=== PATIENT | female | born 1985 | race Caucasian/White ===

== ENCOUNTER 2022-09-07 19:41 | Emergency (ER) | payer OTHER, SELFPAY ==
--- NOTE | ~2022-09-07 | XR_ITS ---
EXAMINATION: XR SHOULDER, RIGHT CLINICAL INFORMATION: Pain, limited range of motion COMPARISON: None available. TECHNIQUE: Three views of the right shoulder. FINDINGS: The bones and soft tissues are normal. No fracture. Glenohumeral and acromioclavicular alignment is anatomic with normal joint space. No abnormal soft tissue calcifications. XR/XR shoulder RT min 2V IMPRESSION: Normal right shoulder.
--- NOTE | ~2022-09-07 | XR_ITS ---
EXAMINATION: XR ELBOW, RIGHT CLINICAL INFORMATION: Pain, limited range of motion COMPARISON: None available. TECHNIQUE: AP, lateral, and oblique views of the right elbow. FINDINGS: The bones and soft tissues are normal. No fracture or joint effusion. Alignment is anatomic. Joint spaces are maintained. XR/XR elbow RT min 3V IMPRESSION: Normal right elbow.
[2022-09-07 19:48] VITALS: BP 143/87; PULSE 101; RESP 18; TEMP 36.6; O2SAT 97; BMI 30.3
--- NOTE | 2022-09-07 19:48 | ED.EXTPRO ---
HPI - Extremity Problem General Chief complaint: Extremity Injury, Upper Stated complaint: right arm numb cant lift Time Seen by Provider: 09/07/22 20:09 Related Data Previous Rx's Medication Instructions Recorded cyclobenzaprine 10 mg tablet 10 mg PO TID PRN muscle spasm #20 09/07/22 tabs ibuprofen 800 mg tablet 800 mg PO TID #30 tabs 09/07/22 Allergies Allergy/AdvReac Type Severity Reaction Status Date / Time amoxicillin [AMOXICILLIN] Allergy Unknown RASH Unverified 01/09/20 16:24 diphenhydramine Allergy Unknown HIVES Unverified 01/09/20 16:24 [From BENADRYL] doxycycline [DOXYCYCLINE] Allergy Unknown SHORTNESS Unverified 01/09/20 16:24 OF BREATH PMFSH Social History Social History Advance Directives: No Advance Directives Information Provided: No Physical Exam Vital Signs: Vital Signs: Last Vital Signs Temp 97.8 F 09/07/22 19:48 Pulse 101 H 09/07/22 19:48 Resp 18 09/07/22 19:48 BP 143/87 H 09/07/22 19:48 Pulse Ox 97 09/07/22 19:48 O2 Del Method Room Air 09/07/22 19:48 BMI result Body Mass Index 30.3 Course Course Course Narrative: RME - 36 yo right hand dominant female with history of anxiety and depression presents to the ER for evaluation of 3-4 days of nontraumatic constant right upper extremity pulsating, throbbing pain that starts in the shoulder and radiates to the right elbow along with limited ROM. Sometimes has numbness/tingling down into the right hand. Arm held in passive flexion and adduction with limited passive ROM. Plan: x-rays of shoulder and elbow Reevaluation(s) Reevaluation #1: see Dr. Hernandez's note for full assessment and plan Medications Administered Discontinued Medications Generic Name Dose Route Start Last Admin Trade Name Freq PRN Reason Stop Dose Admin Cyclobenzaprine HCl 10 mg 09/07/22 20:18 09/07/22 20:27 Cyclobenzaprine Hcl 10 Mg Tablet PO 09/07/22 20:19 10 mg ONCE ONE Administration Ketorolac Tromethamine 30 mg 09/07/22 20:18 09/07/22 20:27 Ketorolac Tromethamine 30 Mg/Ml Vial IM 09/07/22 20:19 30 mg ONCE ONE Administration Discharge Plan Discharge Clinical Impression: Biceps tendinitis Patient Disposition: Home, Self-Care Instructions: Tendinitis (ED) Additional Instructions: Follow-up at [facility] in [place]. [address] [facility]. Call [phone] arrange an appointment. In the meantime take ibuprofen for pain and inflammation. Flexeril as a muscle relaxant. Keep the sling on for comfort although he you may take it off to do range of motion as tolerated. Prescriptions: New ibuprofen 800 mg tablet 800 mg PO TID Qty: 30 0RF cyclobenzaprine 10 mg tablet 10 mg PO TID PRN (Reason: muscle spasm) Qty: 20 0RF Interventions: ED Discharge Assessment Last Done: 09/07/22 20:32 Discharge Date/Time: 09/07/22 20:39
--- NOTE | 2022-09-07 20:19 | ED_ITS ---
HPI - Extremity Problem General Chief complaint: Extremity Injury, Upper Stated complaint: right arm numb cant lift Time Seen by Provider: 09/07/22 20:09 Source: patient History of Present Illness HPI Narrative: Patient with 3-4 days of atraumatic right shoulder pain. It radiates down into her elbow. No injury. No overuse. No prior history of similar issues. No significant neck pain. No left-sided symptoms. No numbness or tingling. No fevers or chills. Related Data Previous Rx's Medication Instructions Recorded cyclobenzaprine 10 mg tablet 10 mg PO TID PRN muscle spasm #20 09/07/22 tabs ibuprofen 800 mg tablet 800 mg PO TID #30 tabs 09/07/22 Allergies Allergy/AdvReac Type Severity Reaction Status Date / Time amoxicillin [AMOXICILLIN] Allergy Unknown RASH Unverified 01/09/20 16:24 diphenhydramine Allergy Unknown HIVES Unverified 01/09/20 16:24 [From BENADRYL] doxycycline [DOXYCYCLINE] Allergy Unknown SHORTNESS Unverified 01/09/20 16:24 OF BREATH Review of Systems Constitutional: Comments: No fevers or chills Musculoskeletal: Comments: No neck pain Integumentary/Breasts: Comments: No rash Neurologic: Comments: No numbness PMFSH Social History Social History Advance Directives: No Advance Directives Information Provided: No Physical Exam Vital Signs: Vital Signs: Last Vital Signs Temp 97.8 F 09/07/22 19:48 Pulse 101 H 09/07/22 19:48 Resp 18 09/07/22 19:48 BP 143/87 H 09/07/22 19:48 Pulse Ox 97 09/07/22 19:48 O2 Del Method Room Air 09/07/22 19:48 BMI result Body Mass Index 30.3 Const: Other: Awake and alert. No acute distress Neck: Other: No midline C-spine tenderness. No significant right paraspinous muscle tenderness or spasm Resp: Other: No respiratory distress Skin: Other: No rash over affected area Neuro: Other: Distal sensation is intact Extrem: Other: Right shoulder with tenderness maximum over insertion of biceps tenderness. No crepitus or deformity noted. Range of motion very limited secondary to pain. No increased warmth or erythema. Also tenderness at the distal insertion of the biceps tendon. She has full range of motion of the finger, hand, wrist. Full supination pronation without difficulty. Pain is reproduced on flexion at the elbow or attempted flexion or extension or abduct valdivia at the shoulder. Radial pulse is normal and capillary refill is immediate Medical Decision Making Medical Decision Making MDM Narrative: Patient with maximum tenderness over biceps tendon likely biceps tendinitis. Rule out calcific tendinosis or occult trauma. X-rays on my interpretation show no obvious abnormalities. Will treat with Toradol IM, Flexeril p.o., sling. Follow up with physiatry. Discharge Plan Discharge Clinical Impression: Biceps tendinitis Patient Disposition: Home, Self-Care Instructions: Tendinitis (ED) Additional Instructions: Follow-up at [facility] in [place]. [address] [facility]. Call [phone] arrange an appointment. In the meantime take ibuprofen for pain and inflammation. Flexeril as a muscle relaxant. Keep the sling on for comfort although he you may take it off to do range of motion as tolerated. Prescriptions: New ibuprofen 800 mg tablet 800 mg PO TID Qty: 30 0RF cyclobenzaprine 10 mg tablet 10 mg PO TID PRN (Reason: muscle spasm) Qty: 20 0RF
[2022-09-07] MEDS: Cyclobenzaprine HCl 10 MG TABLET PO (20:27)
[2022-09-07] MEDS: Ketorolac Tromethamine 30 MG/ML VIAL IM (20:27)
== END 2022-09-07 20:39 | disposition home or self-care (01) ==
PROVIDERS: Emergency Provider Emergency Medicine; PCP Physician Assistant Medical
DX: M75.21 Bicipital tendinitis, right shoulder (principal); M79.601 Pain in right arm; Z79.899 Other long term (current) drug therapy
CPT/HCPCS: 73030; 73080; 96372; 99283; 99284; J1885

== ENCOUNTER 2022-09-09 15:27 | Emergency (ER) | payer OTHER, SELFPAY ==
[2022-09-09 15:41] VITALS: BP 118/71; PULSE 87; RESP 18; TEMP 36.6; O2SAT 98; BMI 29.3
--- NOTE | 2022-09-09 15:45 | ED.GENADULT ---
HPI - General Adult General Chief complaint: Extremity Problem Stated complaint: shoulder is getting worse, here the other night Time Seen by Provider: 09/09/22 15:53 History of Present Illness HPI narrative: 36-year-old female with no significant past medical history presents emergency department for re-evaluation of right shoulder pain. She was seen on 09/07/2022 and diagnosed with biceps tendinitis. She was discharged on ibuprofen, Flexeril, and provided with a sling. She was referred to physiatry for further evaluation. She reports pain has not improved despite medications. She states she called her primary care provider to make an appointment and has not spoken to anyone since. She made an appointment to be assessed by [facility] in September. She reports she has been wearing the sling as she was told and taking her arm out for gentle [id number] exercises. She denies any paresthesias, increasing weakness, fevers, chills. Pertinent positives and negatives discussed HPI. Related Data Previous Rx's Medication Instructions Recorded cyclobenzaprine 10 mg tablet 10 mg PO TID PRN muscle spasm #20 09/07/22 tabs ibuprofen 800 mg tablet 800 mg PO TID #30 tabs 09/07/22 Allergies Allergy/AdvReac Type Severity Reaction Status Date / Time amoxicillin [AMOXICILLIN] Allergy Unknown RASH Unverified 01/09/20 16:24 diphenhydramine Allergy Unknown HIVES Unverified 01/09/20 16:24 [From BENADRYL] doxycycline [DOXYCYCLINE] Allergy Unknown SHORTNESS Unverified 01/09/20 16:24 OF BREATH Review of Systems Review of Systems: Yes all other systems are reviewed and are negative [facility] Past Medical History Attestation statement: The following information was validated with the patient. Source: old records reviewed Social History Social History Advance Directives: No Advance Directives Information Provided: No Physical Exam ED Vital Signs: Vital Signs - 24 hr 09/09/22 15:41 Temperature 98 F Pulse Rate 87 Respiratory Rate 18 Blood Pressure 118/71 Pulse Oximetry 98 Oxygen Delivery Method Room Air BMI result Body Mass Index 29.3 Nursing notes and vital signs reviewed. GENERAL APPEARANCE: A&0 x 4, generally well appearing, no acute distress HENMT: Normal to inspection, atraumatic, face symmetrical. Normal external ears, nose, and oropharynx clear. NECK: Supple without lymphadenopathy. No stiffness or restricted ROM. HEART: Normal rate and regular rhythm, normal S1/S2, no M/R/G LUNGS: LS CTA, moving air well. Able to speak in complete sentences. No crackles, wheezes, or rhonchi auscultated EXTREMITIES: Difficulty moving RUE due to pain. No cyanosis, clubbing, or edema. Normal capillary refill. NEUROLOGICAL: Alert and oriented. CN not formally tested but appearing grossly intact. Observed to ambulate with normal gait. Cognition normal SKIN: Warm and dry without any lesions, rash, or visible sores PSYCH: Cooperative, normal affect, normal thought process Course Course Course Narrative: RME performed by Miley Torres PA-C. Patient is a 36 year old assigned female at presenting to the emergency department with right shoulder pain. Patient placed back in the waiting room pending room availability and results. Medical Decision Making Medical Decision Making [facility] Narrative: 1615: Old records reviewed for previous imaging, lab studies, ECGs, or notes. Patient was assessed the emergency department. No acute distress or toxicity noted. Patient symptoms consistent with acute right shoulder strain and biceps tendinitis. Patient educated to continue use of prescribed medications and use of sling. Recommended that patient use Tylenol in addition to pain regimen. We discussed follow-up with orthopedics and primary care his she may need physical therapy. Patient is safe for discharge at this time with plan for [id number] Tylenol in addition to prescribed medications for discomfort with dosing as per packaging. HPI, PE, diagnostics, and plan discussed with patient and family with no unanswered questions at this time. Strict return precautions given to return to the emergency department with new, worsening, or concerning emergent symptoms. Recommended to follow-up with there primary care provider in 24-48 hours for further treatment and management. Differential Diagnosis see above Discharge Plan Discharge Clinical Impression: Strain of right shoulder Patient Disposition: Home, Self-Care Instructions: Acetaminophen (By mouth), Muscle Strain (ED), How to Use a Sling (ED) Additional Instructions: Your seen in the emergency department for concerns of continued right shoulder pain. Is recommended they continue the prescribed medication in addition to emri-xae-[id number] Tylenol. You are safe for discharge at this time with plan for management of fever or discomfort with [id number] Tylenol and/or NSAID such as ibuprofen or naproxen with dosing as per packaging. Please return to the emergency department with new, worsening, or concerning emergent symptoms. Recommended to follow-up with your primary care provider in 24-48 hours for further treatment and management. Thank you for choosing [facility] [employer]. Prescriptions: No Action ibuprofen 800 mg tablet 800 mg PO TID Qty: 30 0RF cyclobenzaprine 10 mg tablet 10 mg PO TID PRN (Reason: muscle spasm) Qty: 20 0RF Referrals: [facility] [Provider Group] ([facility] Urgent Care walk-in hours are Monday through Monday 8:30 a.m. ? 3:00 p.m. (closed from 12:00p.m.-1:00p.m.) ) Verónica Grigsby PA [Primary Care Provider] - Interventions: ED Discharge Assessment Last Done: 09/09/22 16:27 Discharge Date/Time: 09/09/22 16:28 Print Language: Romanian
== END 2022-09-09 16:28 | disposition home or self-care (01) ==
PROVIDERS: Emergency Provider Emergency Medicine Emergency Medical Services; PCP Physician Assistant Medical
DX: S46.911A Strain of unspecified muscle, fascia and tendon at shoulder and upper arm level, right arm, initial encounter (principal); X58.XXXA Exposure to other specified factors, initial encounter; Y93.9 Activity, unspecified; Y92.9 Unspecified place or not applicable; Y99.9 Unspecified external cause status
CPT/HCPCS: 99282

== ENCOUNTER 2024-01-06 19:07 | Emergency (ER) | payer MEDICARE, SELFPAY ==
--- NOTE | ~2024-01-06 | US_ITS ---
EXAMINATION: US PELVIS CLINICAL INFORMATION: Reason for Exam L pelvic pain, vag bleeding, hx partial hysterecto COMPARISON: None available. TECHNIQUE: Ultrasound of the pelvis is performed using both transabdominal and transvaginal transducers along with Doppler. Transvaginal imaging is performed due to inadequate visualization transabdominally. FINDINGS: Patient appears to be status post hysterectomy. Vaginal cuff appears prominent. The right ovary measures 2.8 x 2.5 x 1.8 cm and appears unremarkable. The left ovary measures 2.7 x 2.1 x 2.1 cm and also appears unremarkable. Per technologist report, assessment of left ovarian flow was limited due to proximity of the adjacent iliac vessels with pulsatile flow, though on several images there are suspected flow waveforms in the left ovary. Arterial and venous waveforms are identified in the right ovary. No free fluid is seen. US/US pelvic ovarian doppler IMPRESSION: 1. Status post hysterectomy. Vaginal cuff appears prominent, which could reflect blood products given the history of vaginal bleeding. If symptoms persist, further workup with pre and postcontrast MRI could be performed to evaluate for possible mass. 2. Per technologist note, limited assessment for left ovarian blood flow. Ovarian torsion is considered less likely given normal ovarian size. Electronically signed by: Jame Esteves MD 01/06/2024 11:40 PM EDT
--- NOTE | ~2024-01-06 | US_ITS ---
EXAMINATION: US PELVIS CLINICAL INFORMATION: Reason for Exam L pelvic pain, vag bleeding, hx partial hysterecto COMPARISON: None available. TECHNIQUE: Ultrasound of the pelvis is performed using both transabdominal and transvaginal transducers along with Doppler. Transvaginal imaging is performed due to inadequate visualization transabdominally. FINDINGS: Patient appears to be status post hysterectomy. Vaginal cuff appears prominent. The right ovary measures 2.8 x 2.5 x 1.8 cm and appears unremarkable. The left ovary measures 2.7 x 2.1 x 2.1 cm and also appears unremarkable. Per technologist report, assessment of left ovarian flow was limited due to proximity of the adjacent iliac vessels with pulsatile flow, though on several images there are suspected flow waveforms in the left ovary. Arterial and venous waveforms are identified in the right ovary. No free fluid is seen. US/US pelvic and transvaginal IMPRESSION: 1. Status post hysterectomy. Vaginal cuff appears prominent, which could reflect blood products given the history of vaginal bleeding. If symptoms persist, further workup with pre and postcontrast MRI could be performed to evaluate for possible mass. 2. Per technologist note, limited assessment for left ovarian blood flow. Ovarian torsion is considered less likely given normal ovarian size. Electronically signed by: Jame Esteves MD 01/06/2024 11:40 PM EDT
--- NOTE | ~2024-01-06 | CT_ITS ---
EXAMINATION: CT ABDOMEN AND PELVIS WITH CONTRAST CLINICAL INFORMATION: Lower abdominal pain COMPARISON: Same day pelvic ultrasound TECHNIQUE: Multidetector volumetric images were obtained from the superior aspect of the liver through the pubic symphysis following administration 85 mL of Omnipaque 350 intravenous contrast. Sagittal and coronal reformatted images were obtained on the technologist's workstation. Oral contrast: No This CT examination was performed using dose optimization techniques as appropriate, variously including the following: *Automated exposure control *Adjustment of mA and/or kV according to patient size (this includes techniques or standardized protocols for targeted exams where dose is matched to indication/reason for exam; i.e. extremities or head) *Use of iterative reconstruction technique DLP: 498 mGy-cm FINDINGS: LUNG BASES: The visualized lung bases are unremarkable. LIVER, GALLBLADDER, AND BILIARY TREE: The liver is normal in size, shape, and attenuation. No focal hepatic lesion or biliary ductal dilatation is present. The gallbladder is unremarkable with no evidence of radiopaque gallstones, gallbladder wall thickening, or obvious pericholecystic inflammatory changes. PANCREAS: Unremarkable. SPLEEN: Unremarkable. ADRENAL GLANDS: Unremarkable. KIDNEYS AND URETERS: Bilateral nephrograms are symmetric. No hydronephrosis or obstructing calculus identified. BLADDER: Mildly distended and grossly unremarkable. GASTROINTESTINAL TRACT: No evidence of bowel obstruction or significant wall thickening. The appendix is unremarkable. No free air or significant free fluid identified. ABDOMINAL WALL: No significant hernia is appreciated. LYMPH NODES: Normal. VASCULAR: Unremarkable. PELVIC VISCERA: Status post hysterectomy. Somewhat prominent appearance of the vaginal cuff as noted on pelvic ultrasound from the same day. OSSEOUS STRUCTURES: Unremarkable. CT/CT abdomen pelvis w IV con IMPRESSION: Status post hysterectomy with a somewhat prominent appearance of the vaginal cuff as noted/discussed on pelvic ultrasound from the same day. Otherwise, no additional acute findings identified. Electronically signed by: Jame Esteves MD 01/07/2024 01:40 AM EDT
--- NOTE | 2024-01-06 19:33 | ED.GENADULT ---
HPI - General Adult General Chief complaint: Vaginal Bleeding Stated complaint: vaginal bleeding, pelvic pain Time Seen by Provider: 01/06/24 23:23 Source: patient Mode of arrival: ambulatory Limitations: no limitations History of Present Illness ED Provider: Yoon RODRIGUEZ HPI narrative: 38 year old female history of partial hysterectomy that was complicated and required bladder mesh presents with left lower quadrant abdominal pain, vaginal spotting, left flank pain ongoing for the past 5 days she reports subjective fevers. Reports pain is sharp in nature. Denies CP,SOB, nausea, vomiting, changes in urinary habits anad bowel habits. Reports had a normal US a few weeks ago of her ovaries. Related Data Previous Rx's ?Medication ?Instructions ?Recorded cyclobenzaprine 10 mg tablet 10 mg PO TID PRN muscle spasm #20 09/07/22 tabs ibuprofen 800 mg tablet 800 mg PO TID #30 tabs 09/07/22 oxycodone 5 mg tablet 5 mg PO Q6H PRN pain #20 tabs 01/07/24 Allergies Allergy/AdvReac Type Severity Reaction Status Date / Time amoxicillin [AMOXICILLIN] Allergy Unknown RASH Verified 01/06/24 19:38 diphenhydramine Allergy Unknown HIVES Verified 01/06/24 19:38 [From BENADRYL] doxycycline [DOXYCYCLINE] Allergy Unknown SHORTNESS Verified 01/06/24 19:38 OF BREATH Review of Systems Review of Systems: Yes all other systems are reviewed and are negative PMFSH Past Medical History Attestation statement: The following information was validated with the patient. Source: old records reviewed and nursing notes reviewed Social History Social History Smoked in Last 30 Days: Yes Use of substances other than those prescribed or required for medical reasons: No Advance Directives: No Advance Directives Information Provided: No Do you have a plan to hurt others: No Plan Patient : No Physical Exam ED Vital Signs: Vital Signs - 24 hr 01/06/24 19:34 01/06/24 23:05 01/06/24 23:16 Temperature 98.0 F 98.0 F Pulse Rate 78 84 84 Respiratory Rate 16 16 16 Blood Pressure 124/94 H 110/68 110/68 Pulse Oximetry 97 100 100 Oxygen Delivery Method Room Air Room Air Room Air 01/07/24 00:00 01/07/24 02:00 Temperature 97.9 F 97.9 F Pulse Rate 91 79 Respiratory Rate 16 18 Blood Pressure 107/61 104/68 Pulse Oximetry 98 98 Oxygen Delivery Method Room Air Room Air BMI result Body Mass Index 23.0 vss Appearance: Alert.? Oriented X3.? No acute distress.? Head: Normocephalic, atraumatic, no step-offs or deformities Eyes: Pupils equal, round and reactive to light.? CVS: Normal heart rate and rhythm.? Pulses normal.? Respiratory: No respiratory distress.? Breath sounds normal.? Abdomen: Soft and diffuse abd pain.? Skin: Skin warm and dry.? Normal skin color.? Normal skin turgor.? Extremities: No lower extremity edema.? No calf ttp. 5/5 strength to bilateral upper and lower extremities Neuro: Oriented X 3.? No motor deficit.? No sensory deficit. CN 2-12 intact Course Course Course Narrative: This is an RME performed by Lela Nino [employer]: Additional HPI, ROS, PE not included below will be deferred to primary provider. Patient is a 38-year-old female who presents to the emergency department Reports 5 days with pain to the left lower pelvic lesion with associated vaginal bleeding, pain radiates to the left lower back. Reports a history of partial hysterectomy 10 or 11 years ago due to heavy menses and possible diagnosis of endometriosis does not recall, has had intermittent issues with vaginal bleeding since then, expresses concern for previously eroded bladder mesh. Denies genitourinary symptoms at this time. Denies concern for sx. Reevaluation(s) Reevaluation #1: CBC stable x2 . Chemistry unremarkable. Beta hCG 9 unlikely . Lipase 29. Urine negative. Ultrasound pelvic and transvaginal status post hysterectomy, vaginal cuff appears prominent which could reflect blood products given an vaginal bleeding. Limit assessment of left ovarian blood flow ovarian torsion less likely given normal ovaries. When I went in the room patient was sleeping, did not appear to be in acute distress. Again less likely ovarian torsion. CT abdomen pelvis pending. Will sign this case out to Dr. Strauss Time: 01:35 Medications Administered Discontinued Medications Generic Name Dose Route Start Last Admin Trade Name Freq PRN Reason Stop Dose Admin Iohexol 85 ml 01/06/24 23:47 01/06/24 23:48 Iohexol 350 Mg/Ml 100 Ml Infus..Btl IV 01/06/24 23:48 85 ml ONCE ONE Administration Ketorolac Tromethamine 30 mg 01/07/24 01:48 01/07/24 01:53 Ketorolac Tromethamine 30 Mg/Ml Vial IVPUSH 01/07/24 01:49 30 mg ONCE ONE Administration Medical Decision Making Medical Decision Making [facility] Narrative: 0125 38 yo f presents w/ vaginal spotting, abd discomfort LLQ to L flank. PE LLQ tenderness and L flank discomfort History and physical exam concerning for possible diverticulitis versus UTI versus cystitis versus kidney stone. Unlikely acute abdomen, obstruction, pancreatitis, cholecystitis, appendicitis. Will rule out metabolic derangement Plan- labs, UA, Imaging Patient is status post partial hysterectomy about 8 years old comes here for ongoing pain in the pelvic area for last 2 months been followed by Gynecology urologist and PCP at [facility] workup so far was negative CT scan here also negative labs are stable will discharge patient home advised to follow with urologist continue pain medication ibuprofen along with oxycodone for severe pain Differential Diagnosis Differential Diagnoses: The differential diagnosis associated with the presentation includes History and physical exam concerning for possible diverticulitis versus UTI versus cystitis versus kidney stone. Unlikely acute abdomen, obstruction, pancreatitis, cholecystitis, appendicitis. Will rule out metabolic derangement Admission/Observation Consideration of admission/observation: Escalation of care including admission/observation considered Possible Lab Data [facility] Lab Attestation statement: I reviewed the patient's lab results. 01/07/24 00:10 01/06/24 20:46 Labs: Lab Results 01/06/24 01/06/24 01/07/24 Range/Units 20:46 23:31 00:10 WBC 9.2 8.9 (4.8-10.8) X10*3/uL RBC 4.17 L 3.87 L (4.20-5.50) X10*6/uL Hgb 13.6 12.4 (12.0-16.0) g/dl Hct 40.0 37.7 (37.0-47.0) % MCV 95.9 97.4 (80.0-98.0) fL MCH 32.6 32.0 (27.0-33.0) pg MCHC 34.0 32.9 (31.0-35.0) g/dl RDW 13.7 13.8 (11.0-16.0) % Plt Count 255 213 (160-400) X10*3/uL MPV 10.7 11.5 (9.4-12.3) fL Immature Gran % (Auto) 0.4 0.6 H (0.0-0.4) % Neut % (Auto) 55.2 56.7 (45-73) % Lymph % (Auto) 33.9 32.7 (20-40) % [place] % (Auto) 6.7 6.4 (2-11) % Eos % (Auto) 2.9 2.9 (0-4) % Baso % (Auto) 0.9 0.7 (0-2) % Lymph # (Auto) 3.1 2.9 (1.2-4.9) X10*3/uL [place] # (Auto) 0.6 0.6 (0.1-1.2) X10*3/uL Eos # (Auto) 0.3 0.3 (0.0-0.4) X10*3/uL Baso # (Auto) 0.1 0.1 (0.0-0.2) X10*3/uL Abs Immat Gran (auto) 0.04 H 0.05 H (0.00-0.03) X10*3/uL Absolute Neuts (auto) 5.1 5.1 (2.0-8.3) x10*3/uL Absolute Nucleated RBC 0.000 0.000 (0.0-0.012) X10*3/uL Nucleated RBC % (auto) 0.0 0.0 (0.0-0.2) /100WBC Sodium 140 (135-145) mmol/L Potassium 4.5 (3.3-5.1) mmol/L Chloride 107 (96-108) mmol/L Carbon Dioxide 26 (22-29) mmol/L Anion Gap 12 (12-20) BUN 10 (9-16) mg/dL Creatinine 0.71 (0.5-1.4) mg/dL Estim Creat Clear Calc 106.3 Estimated GFR > 60 Random Glucose 101 (60-115) mg/dL Calcium 9.2 (8.4-10.2) mg/dL Total Bilirubin 0.2 (0.0-1.0) mg/dL AST 14 (5-31) U/L ALT 18 (0-31) U/L Alkaline Phosphatase 70 (39-117) U/L Total Protein 6.6 (6.5-8.0) g/dL Albumin 3.9 (3.5-5.0) g/dL Lipase 29 (8-78) U/L Beta HCG, Quant 9 mIU/mL Urine Color Yellow Urine Appearance Clear Urine pH 6.0 (5.0-9.0) Ur Specific [place] 1.015 (1.005-1.025) Urine Protein Negative (Neg-Trace) mg/dL Urine Glucose (UA) Negative (Negative) mg/dL Urine Ketones Negative (Negative) mg/dL Urine Blood Negative (Negative) Urine Nitrite Negative (Negative) Ur Leukocyte Esterase Negative (Negative) Independent Interpretation I performed an independent interpretation of an: Ultrasound ( US/US pelvic and transvaginal IMPRESSION: 1. Status post hysterectomy. Vaginal cuff appears prominent, which could reflect blood products given the history of vaginal bleeding. If symptoms persist, further workup with pre and postcontrast MRI could be performed to evaluate for possible mass. 2) and CT Scan Radiology Impression Discussion of test interpretation with radiology: I have reviewed the radiologist's reading. External Record Review External record reviewed: Inpatient record, Office record, Outpatient record, Prior outpatient labs, Prior outpatient radiology, Primary care record and Outside ED record Chronic Conditions Patient?s care impacted by: Other (Hysterectomy,) Critical Care Time Critical Care Time Critical Care Time: No Discharge Plan Discharge Clinical Impression: Vaginal spotting, Abdominal pain Patient Disposition: Home, Self-Care Instructions: Abdominal Pain (ED) Additional Instructions: Cause of your abdominal pain is not clear Follow with your urologist/nutritionalist next week Ibuprofen for pain Oxycodone for severe pain Prescriptions: New oxycodone 5 mg tablet 5 mg PO Q6H PRN (Reason: pain) Qty: 20 0RF Rx Instructions: Partial Fill upon patient request. No Action ibuprofen 800 mg tablet 800 mg PO TID Qty: 30 0RF cyclobenzaprine 10 mg tablet 10 mg PO TID PRN (Reason: muscle spasm) Qty: 20 0RF Print Language: Indian
[2024-01-06 19:34] VITALS: BP 124/94; PULSE 78; RESP 16; TEMP 36.7; O2SAT 97; BMI 23.0
[2024-01-06 20:51] LABS: MANUAL DIFF FLAG NO
[2024-01-06 20:53] LABS: Basophils Absolute Auto 0.1 X10*3/uL (0.0-0.2); Basophils Percent Auto 0.9 % (0-2); Eosinophils Absolute Auto 0.3 X10*3/uL (0.0-0.4); Eosinophils Percent Auto 2.9 % (0-4); Hemoglobin 13.6 g/dl (12.0-16.0); Imm Gran Abs Auto 0.04 X10*3/uL (0.00-0.03); Imm Gran Pct Auto 0.4 % (0.0-0.4); Lymphocytes Absolute Auto 3.1 X10*3/uL (1.2-4.9); Lymphocytes Percent Auto 33.9 % (20-40); Mean Corpuscular Hemoglobin 32.6 pg (27.0-33.0); Mean Corpuscular Volume 95.9 fL (80.0-98.0); Mean Platelet Volume 10.7 fL (9.4-12.3); Monocytes Absolute Auto 0.6 X10*3/uL (0.1-1.2); Monocytes Percent Auto 6.7 % (2-11); Neutrophils Absolute Auto 5.1 x10*3/uL (2.0-8.3); Neutrophils Percent Auto 55.2 % (45-73); Platelet Count 255 X10*3/uL (160-400); Red Blood Count 4.17 X10*6/uL (4.20-5.50); Red Cell Distribution Width 13.7 % (11.0-16.0); White Blood Count 9.2 X10*3/uL (4.8-10.8)
[2024-01-06 21:10] LABS: Alanine Aminotransferase 18 U/L (0-31); Albumin Level 3.9 g/dL (3.5-5.0); Alkaline Phosphatase 70 U/L (39-117); Anion Gap 12 (12-20); Aspartate Amino Transferase 14 U/L (5-31); Bilirubin Total 0.2 mg/dL (0.0-1.0); Blood Urea Nitrogen 10 mg/dL (9-16); Calcium 9.2 mg/dL (8.4-10.2); Carbon Dioxide 26 mmol/L (22-29); Chloride 107 mmol/L (96-108); Creatinine Clr Calc Pharmacy 106.3; Estimated Glomerular Filt Rate > 60; Glucose Random 101 mg/dL (60-115); Potassium 4.5 mmol/L (3.3-5.1); Sodium 140 mmol/L (135-145); Total Protein 6.6 g/dL (6.5-8.0)
[2024-01-06 23:05] VITALS: BP 110/68; PULSE 84; RESP 16; O2SAT 100
[2024-01-06 23:16] VITALS: BP 110/68; PULSE 84; RESP 16; TEMP 36.7; O2SAT 100
[2024-01-06 23:38] LABS: Appearance Urine Clear; Color Urine Yellow; Glucose Urine UA Negative (Negative); Leukocyte Esterase Urine Negative (Negative); Nitrite Urine Negative (Negative); Specific Gravity - Urine 1.015 (1.005-1.025); Urine Blood Negative (Negative); Urine Ketones Negative (Negative); Urine Protein Negative (Neg-Trace)
[2024-01-06 23:48] LABS: Lipase 29 U/L (8-78)
[2024-01-06] MEDS: iohexoL 350 MG/ML 100 ML INFUS..BTL 85 ML IV (23:48)
[2024-01-06 23:51] LABS: HCG Quantitative 9 mIU/mL
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
--- OUTSIDE RECORDS SUMMARY | 2024-01-06 23:55 | XMS_ITS | Continuity of Care Document ---
Author Organization [facility] Address [address] [facility] [address], [address] [place] [address]- Care Team Providers Care Maori Liaison Adviser Name Role Phone Verónica Manrique Primary Care Physician [phone] Encounter [facility] Date(s): 04/25/23 - 05/25/23 [facility] [address] [facility] [address], [address]th [place] [address]- Attending Physician: Vikram Worthington Admitting Physician: AdmVikram north Referring Physician: AdmtrVikram Allergies, Adverse Reactions, Alerts Substance Reaction Severity [...] influenza virus vaccine, inactivated 5 02/14/12 Gi smliey influenza virus vaccine, inactivated 03/31/09 William rded influenza virus vaccine, inactivated 06/08/08 Give n tetanus-diphtheria toxoids (Td) 6 08/02/11 Given influ virus vac, H1N1, inactive(oldterm) 7 03/31/09 Given Pneumococcal Vaccine (oldterm) 06/08/08 Given 1Result Comment: pt. tolerated inj. without complications....CO [facility]# [id number] 2Result Comment: [03/21/2018] given w/out incident [facility]: [id number] 3Result Comment: [02/22/2016] pt. tolerated inj. without complications...CO 4Result Comment: [04/23/2015] given w/out incident 5Admin Note: given w/out incident/VIS given 10/24/2011 6Admin Note: given w/o incident, vis sheet given.mass bio 7Admin Note: [facility] Medications cloNIDine 0.1 mg oral tablet 0.1 mg, 1, tablet, By Mouth, Daily at bedtime, PRN, # 30 tablet, Refills 0, Maintenance, Anxiety, 05/12/23 4:35:00 EST, Partial fill upon patient request if the prescription is for a schedule II opioid drug. Start Date: 05/12/23 Status: Ordered doxepin 6 mg oral tablet 1 tablet = 6 mg, By Mouth, Daily at bedtime, # 30 tablet, 0 Refills, Maintenance, 05/12/23 4:34:00 EST, Tablet, Partial fill upon patient request if the prescription is for a schedule II opioid drug. Start Date: 05/12/23 Status: Ordered lamotrigine 200 mg oral tablet, extended release 1 tablet = 200 mg, By Mouth, Daily, # 30 tablet, 0 Refills, Maintenance, 05/12/23 4:34:00 EST, ER Tablet, Partial fill upon patient request if the prescription is for a schedule II opioid drug. Start Date: 05/12/23 Status: Ordered prazosin 2 mg oral capsule 1 capsule = 2 mg, By Mouth, Daily at bedtime, 0 Refills, Maintenance, 05/12/23 4:34:00 EST, Partialfill upon patient request if the prescription is for a schedule II opioid drug. Start Date: 05/12/23 Status: Ordered ProAir HFA 90 mcg/inh inhalation aerosol with adapter 2, puffs, Inhalation, 4 times a day, PRN, # 8.5 Gm, Refills 0, Tot. Refills 0, Maintenance, 01/18/22 16:54:00 EDT, Aerosol, Route to Pharmacy Electronically, [id number], [facility], 155, cm, 01/17/22 13:38:00 ED... Start Date: 01/18/22 Status: Ordered Suboxone 12 mg-3 mg sublingual film 1 film, Sublingual, Daily, dissolve under the tongue, 0 Refills, Maintenance, 05/12/23 4:35:00 EST,Film, Partial fill upon patient request if the prescription is for a schedule II opioid drug. Start Date: 05/12/23 Status: Ordered Problem List Condition Confirmation Course Effective Dates Status Health St atus Informant Trigger point of abdomen Confirmed Active Alcohol abuse Confirmed Active Allergic rhinitis Confirmed Active Anemia Confirmed Active Asthma Confirmed Active Chronic bronchitis Confirmed Active Closed fracture of lateral portion of right tibial plateau 1 Confirmed 10/01/17 Active Fatigue Confirmed Active Left foot pain Confirmed Active GERD (gastroesophageal reflux disease) Confirmed Active RHYS (generalized anxiety disorder) Confirmed Active Headache Confirmed Active Heart murmur Confirmed Active Hemorrhoids Confirmed Active History of alcohol abuse Confirmed Active History of opioid abuse Confirmed Active History of substance abuse Confirmed Active Insomnia Confirmed Active History of suicide attempt by drug ingestion Confirmed Active Hair loss Confirmed Active Chronic myofascial pain Confirmed Active Obese class I Confirmed Active Obesity Confirmed Active Left wrist pain Confirmed Active Poor historian Confirmed Active PTSD (post-traumatic stress disorder) Confirmed Active Seasonal allergies Confirmed Active Smoker Confirmed Active Urge incontinence [...] on: 06/15/20 Sex Patient Care team information Care Team Personnel Name: Verónica Manrique Position: S Associate Professional Member Role: PCP Address: Address: [address] [place] [address]- Care Team Related Persons Name: TANYA BONILLA Address: home [address] [place] [address] Name: MARTIN GANNON Address: [address] [place] [address] Name: MARTIN GONZALEZ Address: [address] [facility] [place] Name: JUDE GONZALEZ Address: [address] [facility] Name: DERICK GONZALEZ Address: [address] [place] [address] Name: BLAZE HOWARD Address: [address] [place] [address] Name: BLAZE HOWARD Address: [address] [place] [address] Name: EDELMIRA WORTHINGTON Address: [address] [place] [address] Name: EDELMIRA VILLALOBOS Address: [address] [place], [place] Name: TAYLOR MOCTEZUMA Address: [place], [place] Name: LINN SWANSON
--- OUTSIDE RECORDS SUMMARY | 2024-01-06 23:55 | XMS_ITS | Continuity of Care Document ---
Author Organization [facility] Adult Address [address] [place] [address]- Care Team Providers Care Slate Roofer Name Role Phone Daivon FRY, Davida Primary Care Physician [facility]s): 01/10/22 - 01/17/22 [facility] Adult [address] [place] [address]- Attending Physician: Davida Ricardo NP Allergies, Adverse Reactions, Alerts Substance Reaction Severity [...] 02/14/12 Gi smiley influenza virus vaccine, inactivated 03/31/09 William rded influenza virus vaccine, inactivated 06/08/08 Give n tetanus-diphtheria toxoids (Td) 6 08/02/11 Given influ virus vac, H1N1, inactive(oldterm) 7 03/31/09 Given Pneumococcal Vaccine (oldterm) 06/08/08 Given 1Result Comment: pt. tolerated inj. without complications....CO [facility]# [id number] 2Result Comment: [03/21/2018] given w/out incident [facility]: [phone] 3Result Comment: [02/22/2016] pt. tolerated inj. without [...] Electronically, STO... Start Date: 01/17/22 Status: Ordered Problem List Condition Effective Dates [...] knee 2procedure done byt Dr. Angeli Torres Vital Signs Most recent to oldest [Reference Range]: 1 Height 155 cm (01/10/22 1:08 PM) Weight 65.8 kg (01/10/22 1:08 PM) Body Mass Index [18.5-24.99] 27.39 *H* (01/10/22 1:08 PM) Weight Obtained Via Patient/family state d (01/10/22 1:08 PM) Social History Social History Type Response Smoking Status 5-9 cigarettes (betw een 1/4 to 1/2 pack)/day in last 30 days; Other: 1/2 PPD since 11 about 24-25 years; entered on: 06/15/20 Sex Care Team Personnel Name: Davida Ricardo NP Address: [address] [place] [id number]
--- OUTSIDE RECORDS SUMMARY | 2024-01-06 23:55 | XMS_ITS | Continuity of Care Document ---
Author Organization [facility] Adult Address [address] [place] [address]- Care Team Providers Care Recoil Spring Winder Name Role Phone Not on Staff, PCP Primary Care Physician Unavail able [facility]s): 01/18/22 - 02/17/22 [facility] Adult [address] [place] [address]- Allergies, Adverse Reactions, Alerts Substance Reaction Severity [...] 1Result Comment: pt. tolerated inj. without complications....CO [facility]# [id number] 2Result Comment: [03/21/2018] given w/out incident [facility]: [phone] 3Result Comment: [02/22/2016] pt. tolerated inj. without [...] 16:54:00 EDT, Aerosol, Route to Pharmacy Electronically, [id number], [facility], 155, cm, [...]
--- OUTSIDE RECORDS SUMMARY | 2024-01-06 23:55 | XMS_ITS | Continuity of Care Document ---
Author Organization [facility] Adult Address [address] [place] [address]- Care Team Providers Care Edge Roller Name Role Phone Davida Ricardo NP Primary Care Physician [facility]s): 12/11/20 - 01/13/21 [facility] Adult [address] [place] [address]- Attending Physician: Davida Ricardo NP Allergies, Adverse [...] 1Result Comment: pt. tolerated inj. without complications....CO [facility]# [id number] 2Result Comment: [03/21/2018] given w/out incident nd: [id number] 3Result Comment: [02/22/2016] pt. tolerated inj. without complications...CO 4Result Comment: [04/23/2015] given w/out incident 5Admin Note: given w/out incident/VIS given 10/24/2011 6Admin Note: given w/o incident, vis sheet given.mass bio 7Admin Note: [facility] Medications Flonase 50 mcg/inh nasal spray 1 sprays, Nares, Both, Daily, # 16 Gm, 5 Refills, Maintenance, 10/08/20 16:33:00 EDT, [place], [facility]/pharmacy #[id number], Partial fill upon patient request if [...] Refills, Maintenance, 09/29/20 14:59:00 EDT, DIS Tablet, [facility]/pharmacy #[id number], Partial fill upon patient request ifthe [...] 16:40:30 EDT, Aerosol, Route to Pharmacy Electronically, [id number], [facility]/pharmacy #1972 Start Date: 11/26/18 Stop Date: 06/24/19 Status: Ordered sertraline 100 mg oral tablet 1.5 tablet, By Mouth, Daily, # 135 tablet, 1 Refills, Maintenance, 11/15/20 14:06:00 EDT, [facility] [id number], 155, cm, 11/10/20 9:00:00 EDT, Height, 71.5, kg, 11/10/20 9:00:00 EDT, Dry Weight Start Date: 11/15/20 Status: Ordered Xyzal 5 mg oral tablet 1 tablet = 5 mg, By Mouth, Daily in PM, # 90 tablet, 0 Refills, Maintenance, 09/08/20 16:33:00 EDT,Tablet, [facility]/pharmacy #[id number], Partial fill upon patient request if [...]
--- OUTSIDE RECORDS SUMMARY | 2024-01-06 23:55 | XMS_ITS | Continuity of Care Document ---
Author Organization [facility] Adult Address [address] [place] [address]- Care Team Providers Care Emergency Medicine Name Role Phone Davida Ricardo NP Primary Care Physician [facility] Date(s): 04/26/21 - 05/26/21 [facility] Adult [address] [place] [address]- Allergies, Adverse Reactions, Alerts Substance Reaction Severity [...] Comment: pt. tolerated inj. without complications....CO [facility]# [id number] 2Result Comment: [03/21/2018] given w/out incident nd: [id number] 3Result Comment: [02/22/2016] pt. tolerated inj. without complications...CO 4Result Comment: [04/23/2015] given w/out incident 5Admin Note: given w/out incident/VIS given 10/24/2011 6Admin Note: given w/o incident, vis sheet given.mass bio 7Admin Note: [facility] Medications Flonase 50 mcg/inh nasal spray 1 sprays, Nares, Both, Daily, # 16 Gm, 5 Refills, Maintenance, 10/08/20 16:33:00 EDT, [place], [facility]/pharmacy #[id number], Partial fill upon patient request if [...] Refills, Maintenance, 09/29/20 14:59:00 EDT, DIS Tablet, [facility]/pharmacy #[id number], Partial fill upon patient request ifthe [...] each, Refills 6, Tot. Refills 6, Maintenance, 01/14/21 12:49:00 EDT, Aerosol, Route to Pharmacy Electronically, [id number], [facility]/pharmacy #1972, 155, cm, 11/10/20 9:00:00 EDT, [place]... Start Date: 01/14/21 Stop Date: 08/12/21 Status: Ordered sertraline 100 mg oral tablet 1.5 tablet, By Mouth, Daily, # 135 tablet, 1 Refills, Maintenance, 11/15/20 14:06:00 EDT, [facility] [id number], 155, cm, 11/10/20 9:00:00 EDT, Height, 71.5, kg, 11/10/20 9:00:00 EDT, Dry Weight Start Date: 11/15/20 Status: Ordered Xyzal 5 mg oral tablet 1 tablet = 5 mg, By Mouth, Daily in PM, # 90 tablet, 0 Refills, Maintenance, 09/08/20 16:33:00 EDT,Tablet, [facility]/pharmacy #[id number], Partial fill upon patient request if [...]
--- OUTSIDE RECORDS SUMMARY | 2024-01-06 23:55 | XMS_ITS | Continuity of Care Document ---
Author Organization [facility] Adult Address [address] [place] [address]- Care Team Providers Care Commonwealth Attorney Name Role Phone Verónica Manrique Primary Care Physician [facility]s): 02/09/22 - 03/11/22 [facility] Adult [address] [place] [address]- Allergies, Adverse Reactions, Alerts Substance Reaction Severity [...] 1Result Comment: pt. tolerated inj. without complications....CO [facility]# [id number] 2Result Comment: [03/21/2018] given w/out incident nd: [id number] 3Result Comment: [02/22/2016] pt. tolerated inj. without [...] 16:54:00 EDT, Aerosol, Route to Pharmacy Electronically, [id number], [facility], 155, cm, [...] Care Team Personnel Name: Verónica Manrique Position: [facility] Associate Professional Member Role: PCP Address: Address: [address] [place] [address]- Care Team Related Persons Name: TANYA BONILLA Address: [address] [place] [address] Name: MARTIN GANNON Address: [address] [place] [address] Name: MARTIN GONZALEZ Address: [address] [place] [address] Name: JUDE GONZALEZ Address: [address] [facility] Name: DERICK GONZALEZ Address: [address] [place] [address] Name: BLAZE HOWARD Address: [address] [place] [address] Name: BLAZE HOWARD Address: [address] [place] [address] Name: EDELMIRA WORTHINGTON Address: [address] [address] Name: EDELMIRA VILLALOBOS Name: TAYLOR MOCTEZUMA Address: [place] [address] Name: LINN SWANSON
--- OUTSIDE RECORDS SUMMARY | 2024-01-06 23:55 | XMS_ITS | Continuity of Care Document ---
Author Organization [facility] Address [address] [place], [address] [place] [address]- Care Team Providers Care Tile Setter Name Role Phone Verónica Manrique Primary Care Physician [place] [facility] [place] 06[place] [facility] [address] [place], [address] [place] [address]- Attending Physician: Vikram Worthington Admitting Physician: AdmVikram [...] 1Result Comment: pt. tolerated inj. without complications....[facility]# [id number] 2Result Comment: [03/21/2018] given w/out incident [facility]: [id number] 3Result Comment: [02/22/2016] pt. tolerated inj. without complications...[place] 4Result Comment: [04/23/2015] given w/out incident 5Admin Note: given w/out incident/VIS given 10/24/2011 6Admin Note: given w/o incident, vis sheet given.mass bio 7Admin Note: riverbend Medications amantadine 100 mg oral capsule 100 mg, 1, capsule, By Mouth, 2 times a day, Refills 0, Maintenance, 05/30/22 15:58:00 EST, Partialfill upon patient request if the prescription is for a schedule II opioid drug. Start Date: 05/30/22 Status: Ordered hydrOXYzine pamoate 25 mg oral capsule 1 capsule = 25 mg, By Mouth, 4 times a day, 0 Refills, Maintenance, 06/06/22 12:42:00 EST, Partial fill upon patient request if the prescription is for a schedule II opioid drug. Start Date: 06/06/22 Status: Ordered LaMICtal 25 mg oral tablet See Instructions, [...] 16:54:00 EDT, Aerosol, Route to Pharmacy Electronically, [id number], [facility], 155, cm, 01/17/22 13:38:00 ED... Start Date: 01/18/22 Status: Ordered Senna By Mouth, 0 Refills, Maintenance, 05/30/22 15:58:00 EST, Partial fill upon patient request if the prescription is for a schedule II opioid drug. Start Date: 05/30/22 Status: Ordered Suboxone 8 mg-2 mg sublingual film 2 film, Sublingual, Daily, 0 Refills, Maintenance, 05/30/22 15:57:00 EST, Partial fill upon patientrequest if the prescription is for a schedule II opioid drug. Start Date: 05/30/22 Status: Ordered Problem List Condition Confirmation Course [...] Associate Professional Member Role: PCP Address: Address: [address] [place] [address] [place] [address]- Care Team Related Persons Name: TANYA BONILLA Address: home [address] [place] [address] Name: MARTIN GANNON Address: [address] [place] [address] Name: MARTIN GONZALEZ Address: [address] [place] [address] Name: JUDE GONZALEZ Address: [address] [place] Name: DERICK GONZALEZ Address: [address] [place] [address] Name: BLAZE HOWARD Address: [address] [place] [address] Name: BLAZE HOWARD Address: [address] [place] [address] Name: EDELMIRA WORTHINGTON Address: home [address] [place] [address] Name: EDELMIRA VILLALOBOS Address: home [address] [place] [address] Name: TAYLOR MOCTEZUMA Address: [place] [address] Name: LINN SWANSON
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
--- OUTSIDE RECORDS SUMMARY | 2024-01-06 23:55 | XMS_ITS | Continuity of Care Document ---
Author Organization [facility] Address [address] [place] [address]- Care Team Providers Care Respiratory Services Manager Name Role Phone Davida Ricardo NP Primary Care Physician [phone] Encounter [facility] [place] Date(s): 08/08/20 - 08/15/20 [facility] [address] [place] [address]- Encounter Diagnosis Diarrhea(Discharge Diagnosis) - 08/08/20 Attending Physician: Not on Staff, Attending MD Referring Physician: Davida Ricardo NP Allergies, Adverse Reactions, [...] 1Result Comment: pt. tolerated inj. without complications....[facility]# [id number] 2Result Comment: [03/21/2018] given w/out incident [facility]: [id number] 3Result Comment: [02/22/2016] pt. tolerated inj. without complications...[place] 4Result Comment: [04/23/2015] given w/out incident 5Admin Note: given w/out incident/VIS given 10/24/2011 6Admin Note: given w/o incident, vis sheet given.mass bio 7Admin Note: riverbend Medications naproxen sodium 220 mg oral capsule 1 capsule = 220 mg, By Mouth, Every 8 hours, PRN for pain, # 40 capsule, 0 Refills, Maintenance, 06/15/20 15:26:00 EST, Capsule, Partial fill upon patient request if the prescription is for a schedule II opioid drug. Start Date: 06/15/20 Status: Ordered omeprazole 20 mg oral delayed [...] 16:40:30 EDT, Aerosol, Route to Pharmacy Electronically, [id number], [facility] Start Date: 11/26/18 Stop Date: 06/24/19 Status: Ordered sertraline 100 mg oral tablet 1.5 tablet = 150 mg, By Mouth, Daily, # 135 tablet, 0 Refills, Maintenance, 08/10/20 14:56:00 EDT, Tablet, [id number], Partial fill upon patient request if the prescription is for a schedule II opioid drug., 155, cm, 08/10/20 12:31:00 EDT, Hei... Start Date: 08/10/20 Stop Date: 11/08/20 Status: Ordered Zofran 4 mg oral tablet 1 tablet = 4 mg, By Mouth, Every 8 hours, PRN Nausea & Vomiting, # 15 tablet, 0 Refills, Maintenance, 07/27/20 14:54:00 EDT, Tablet, [id number], Partial fill upon patient request if the prescription is for a schedule II opioid drug., 155, cm,... Start Date: 07/27/20 Stop Date: 08/01/20 Status: Ordered Problem List Condition Effective Dates [...] knee 2procedure done byt Dr. Angeli Torres Diagnosis Diagnosis Type Effective Dates Health Status Clini kathy Service Informant Diarrhea Discharge Diagnosis 08/08/20 Social History Social History Type Response Smoking Status 5-9 cigarettes (betw een 1/4 to 1/2 pack)/day in last 30 days; Other: 1/2 PPD since 11 about 24-25 years; entered on: 06/15/20 Sex
--- OUTSIDE RECORDS SUMMARY | 2024-01-06 23:55 | XMS_ITS | Continuity of Care Document ---
Author Organization [facility] Address [address] [place] [address]- Care Team Providers Care Escrow Clerk Name Role Phone Davida Ricardo NP Primary Care Physician [phone] Encounter [facility] [place] Date(s): 09/08/20 - 09/15/20 [facility] [address] [place] [address]- Encounter Diagnosis Allergic rhinitis(Discharge Diagnosis) - 09/08/20 Vivid dream(Discharge Diagnosis) - 09/08/20 Chronic bronchitis(Discharge Diagnosis) - 09/08/20 Attending Physician: Davida Ricardo NP Allergies, Adverse [...] 1Result Comment: pt. tolerated inj. without complications....[facility]# [id number] 2Result Comment: [03/21/2018] given w/out incident nd: [id number] 3Result Comment: [02/22/2016] pt. tolerated inj. without complications...[place] 4Result Comment: [04/23/2015] given w/out incident 5Admin Note: given w/out incident/VIS given 10/24/2011 6Admin Note: given w/o incident, vis sheet given.mass bio 7Admin Note: riverbend Medications Flonase 50 mcg/inh nasal spray 1 sprays, Nares, Both, Daily, # 16 Gm, 0 Refills, Maintenance, 09/08/20 16:33:00 EDT, [place], [facility][id number], Partial fill upon patient request if the prescription is for a schedule II opioid drug., 1 sprays Nares, Both Daily,x30 days, 155, cm, ... Start Date: 09/08/20 Stop Date: 10/08/20 Status: Ordered naproxen sodium 220 mg oral capsule 1 [...] 16:40:30 EDT, Aerosol, Route to Pharmacy Electronically, [id number], [facility]1972 Start Date: 11/26/18 Stop Date: 06/24/19 Status: Ordered sertraline 100 mg oral tablet 1.5 tablet = 150 mg, By Mouth, Daily, # 135 tablet, 0 Refills, Maintenance, 08/10/20 14:56:00 EDT, Tablet, [id number], Partial fill upon patient request if the prescription is for a schedule II opioid drug., 155, cm, 08/10/20 12:31:00 EDT, Hei... Start Date: 08/10/20 Stop Date: 11/08/20 Status: Ordered Xyzal 5 mg oral tablet 1 tablet = 5 mg, By Mouth, Daily in PM, # 90 tablet, 0 Refills, Maintenance, 09/08/20 16:33:00 EDT,Tablet, [id number], Partial fill upon patient request if the prescription is for a scheduleII opioid drug., 1 tablet By Mouth Daily in PM,x90... Start Date: 09/08/20 Stop Date: 12/07/20 Status: Ordered Zofran 4 mg oral tablet 1 tablet = 4 mg, By Mouth, Every 8 hours, # 15 tablet, 0 Refills, Maintenance, 08/24/20 14:56:00 EDT, Tablet, [id number], Partial fill upon patient request if the prescription is for a schedule II opioid drug., 155, cm, 08/24/20 12:16:00 EDT,... Start Date: 08/24/20 Stop Date: 08/29/20 Status: Ordered Zofran 4 mg oral tablet [...] Diagnosis Diagnosis Type Effective Dates Health Status Clinical Service Informant Allergic rhinitis Discharge Diagnosis 09/08/20 Vivid dream Discharge Diagnosis 09/08/20 Chronic bronchitis Discharge Diagnosis 09/08/20 Social History Social History Type Response Smoking Status 5-9 cigarettes (betw een 1/4 to 1/2 pack)/day in last 30 days; Other: 1/2 PPD since 11 about 24-25 years; entered on: 06/15/20 Sex
--- OUTSIDE RECORDS SUMMARY | 2024-01-06 23:55 | XMS_ITS | Continuity of Care Document ---
Author Organization [facility] Address [address] [place] [address]- Care Team Providers Care Shirt Hemmer Name Role Phone Davida Ricardo NP Primary Care Physician Encounter [facility] [place] Date(s): 07/27/20 - 08/03/20 [facility] [address] [place] [address]- Encounter Diagnosis Viral URI(Discharge Diagnosis) - 07/27/20 PTSD (post-traumatic stress disorder)(Discharge Diagnosis) - 07/27/20 Attending Physician: Davida Ricardo NP Allergies, Adverse [...] Comment: pt. tolerated inj. without complications....[facility]# [id number] 2Result Comment: [03/21/2018] given w/out incident ndc: [id number] 3Result Comment: [02/22/2016] pt. tolerated inj. without [...] 16:40:30 EDT, Aerosol, Route to Pharmacy Electronically, [id number], [facility]1972 Start Date: 11/26/18 Stop Date: 06/24/19 Status: Ordered sertraline 100 mg oral tablet 1 tablet = 100 mg, By Mouth, Daily, # 30 tablet, 0 Refills, Maintenance, 07/27/20 14:58:00 EDT, Tablet, [facility] #[id number], Partial fill upon patient request if the prescription is for a schedule II opioid drug., 155, cm, 07/27/20 12:59:00 EDT, Height... Start Date: 07/27/20 Stop Date: 08/26/20 Status: Ordered sertraline 50 mg oral tablet 1 tablet = 50 mg, By Mouth, Daily, # 7 tablet, 0 Refills, Maintenance, 07/27/20 14:58:00 EDT, Tablet, [id number], Partial fill upon patient request if the prescription is for a schedule II opioid drug., 155, cm, 07/27/20 12:59:00 EDT, Height,... Start Date: 07/27/20 Stop Date: 08/03/20 Status: Ordered Zofran 4 mg oral tablet [...] Diagnosis Diagnosis Type Effective Dates Health Status Cl inical Service Informant Viral URI Discharge Diagnosis 07/27/20 PTSD (post-traumatic stress disorder) Discharge Diagnosis 07/27/20 Vital Signs Most recent to oldest [Reference Range]: 1 Height 155 cm (07/27/20 12:59 PM) Weight 70.4 kg (07/27/20 12:59 PM) Body Mass Index [18.5-24.99] 29.3 *H* (07/27/20 12:59 PM) Weight Obtained Via Patient/family state d (07/27/20 12:59 PM) Social History Social History Type Response Smoking Status 5-9 cigarettes (betw een 1/4 to 1/2 pack)/day in last 30 days; Other: 1/2 PPD since 11 about 24-25 years; entered on: 06/15/20 Sex
--- OUTSIDE RECORDS SUMMARY | 2024-01-06 23:55 | XMS_ITS | Continuity of Care Document ---
Author Organization [facility] Address [address] [place] [address]- Care Team Providers Care Nut Roaster Name Role Phone Davida Ricardo NP Primary Care Physician [phone] [place] [facility] [place] [facility] [address] [place] [address]- Encounter Diagnosis History of alcohol abuse(Discharge Diagnosis) - 06/15/20 History of opioid abuse(Discharge Diagnosis) - 06/15/20 Chronic bronchitis(Discharge Diagnosis) - 06/15/20 Attending Physician: Sky Almanzar MD Referring Physician: Davida Ricardo NP Allergies, [...] Comment: pt. tolerated inj. without complications....[facility]# [id number] 2Result Comment: [03/21/2018] given w/out incident [facility]: [id number] 3Result Comment: [02/22/2016] pt. tolerated inj. without [...] 16:40:30 EDT, Aerosol, Route to Pharmacy Electronically, [id number], [facility]1972 Start Date: 11/26/18 Stop Date: 06/24/19 [...] Effective Dates Health Status Clinical Service Informant History of alcohol abuse Discharge Diagnosis 06/15/20 History of opioid abuse Discharge Diagnosis 06/15/20 Chronic bronchitis Discharge Diagnosis 06/15/20 Vital Signs Most recent to oldest [Reference Range]: 1 Height 159.4 cm (06/15/20 1:41 PM) Weight 70.4 kg (06/15/20 1:41 PM) Body Mass Index [18.5-24.99] 27.71 *H* (06/15/20 1:41 PM) Weight Obtained Via Patient/family state d (06/15/20 1:41 PM) Social History Social History Type Response Smoking Status 5-9 cigarettes (betw een 1/4 to 1/2 pack)/day in last 30 days; Other: 1/2 PPD since 11 about 24-25 years; entered on: 06/15/20 Sex
--- OUTSIDE RECORDS SUMMARY | 2024-01-06 23:55 | XMS_ITS | Continuity of Care Document ---
Author Organization [facility] Address [address] [place] [address]- Care Team Providers Care Mason Helper Name Role Phone Verónica Manrique Primary Care Physician [phone] Encounter [facility] [place] Date(s): 03/16/22 - 06/10/22 [facility] [address], [address]th [place] [address]- Attending Physician: Angeli Torres MD Admitting Physician: Angeli Torres MD Referring Physician: Not on Staff, Referring MD Allergies, Adverse Reactions, Alerts Substance Reaction Severity [...] 1Result Comment: pt. tolerated inj. without complications....[facility]# [id number] 2Result Comment: [03/21/2018] given w/out incident [facility]: [id number] 3Result Comment: [02/22/2016] pt. tolerated inj. without [...] 16:54:00 EDT, Aerosol, Route to Pharmacy Electronically, [id number], [facility], 155, cm, [...] Associate Professional Member Role: PCP Address: Address: [address] [place] [address] [place] [address]- [place] Care Team Related Persons Name: TANYA BONILLA Address: [address] [place] [address] Name: MARTIN GANNON Address: [address] [place] [address] Name: MARTIN GONZALEZ Address: [address] [place], [place] Name: JUDE GONZALEZ Address: [address] Name: DERICK GONZALEZ Address: [address] [place] [address] Name: BLAZE HOWARD Address: [address] [place] [address] Name: BLAEZ HOWARD Address: [address] [place] [address] Name: EDELMIRA WORTHINGTON Address: [address] [place] [id number] Name: EDELMIRA VILLALOBOS Address: [address] [place], [place] Name: TAYLOR MOCTEZUMA Address: [place], [place] Name: LINN SWANSON
--- OUTSIDE RECORDS SUMMARY | 2024-01-06 23:55 | XMS_ITS | Continuity of Care Document ---
Author Organization [facility] Address [address] [place] [address]- Care Team Providers Care Payroll Professional Name Role Phone Davida Ricardo NP Primary Care Physician [place] [facility] [place] - 09/[place]/20 [facility] [address] [place], [place] [address] Attending Physician: Vikram oWrthington Admitting Physician: AdmVikram north Referring Physician: AdmtrVikram [...] Comment: pt. tolerated inj. without complications....[facility]# [id number] 2Result Comment: [03/21/2018] given w/out incident nd: [id number] 3Result Comment: [02/22/2016] pt. tolerated inj. without [...] 16:40:30 EDT, Aerosol, Route to Pharmacy Electronically, [id number], [facility] #1972 Start Date: 11/26/18 Stop Date: 06/24/19 Status: Ordered sertraline 100 mg oral tablet 1.5 tablet = 150 mg, By Mouth, Daily, # 135 tablet, 0 Refills, Maintenance, 08/10/20 14:56:00 EDT, Tablet, [facility]/pharm[facility] #[id number], Partial fill upon patient request if [...]
--- OUTSIDE RECORDS SUMMARY | 2024-01-06 23:55 | XMS_ITS | Continuity of Care Document ---
Author Organization [facility] Address [address] [place] [address]- Care Team Providers Care Animal Doctor Name Role Phone Davida Ricardo NP Primary Care Physician [phone] Encounter [facility] Date(s): 09/30/21 - 10/07/21 [facility] [address] [place] [address]- Attending Physician: Sky Almanzar MD Allergies, Adverse Reactions, Alerts Substance Reaction [...] 1Result Comment: pt. tolerated inj. without complications....[facility]# [id number] 2Result Comment: [03/21/2018] given w/out incident [facility]: [phone] 3Result Comment: [02/22/2016] pt. tolerated inj. without complications...[place] 4Result Comment: [04/23/2015] given w/out incident 5Admin Note: given w/out incident/VIS given 10/24/2011 6Admin Note: given w/o incident, vis sheet given.mass bio 7Admin Note: riverbend Problem List Condition Effective Dates Status Health [...] oldest [Reference Range]: 1 Height 155 cm (09/30/21 7:53 AM) Social History Social History Type Response Smoking Status 5-9 cigarettes (betw een 1/4 to 1/2 pack)/day in last 30 days; Other: 1/2 PPD since 11 about 24-25 years; entered on: 06/15/20 Sex
--- OUTSIDE RECORDS SUMMARY | 2024-01-06 23:55 | XMS_ITS | Continuity of Care Document ---
Author Organization [facility] Address [address] [place] [address]- Care Team Providers Care Sas Programmer Remote Name Role Phone Davida Ricardo NP Primary Care Physician Encounter [facility] [place] Date(s): 09/08/20 - 10/08/20 [facility] [address] [place] [address]- Attending Physician: Vikram Worthington Admitting Physician: AdmVikram [...] Comment: pt. tolerated inj. without complications....[facility]# [id number] 2Result Comment: [03/21/2018] given w/out incident nd: [id number] 3Result Comment: [02/22/2016] pt. tolerated inj. without complications...[place] 4Result Comment: [04/23/2015] given w/out incident 5Admin Note: given w/out incident/VIS given 10/24/2011 6Admin Note: given w/o incident, vis sheet given.mass bio 7Admin Note: riverbend Medications Flonase 50 mcg/inh nasal spray 1 sprays, Nares, Both, Daily, # 16 Gm, 5 Refills, Maintenance, 10/08/20 16:33:00 EDT, [place], [facility]/pharmacy #0084, Partial fill upon patient request if the prescription is for a schedule II opioid drug., 1 sprays Nares, Both Daily,x30 days, 155, cm, 06/... Start Date: 10/08/20 Stop Date: 04/06/21 Status: Ordered hyoscyamine 0.125 mg oral tablet, disintegrating 1 tablet = 0.125 mg, By Mouth, 4 times a day, PRN as needed for spasm, # 40 tablet, 3 Refills, Maintenance, 09/29/20 14:59:00 EDT, DIS Tablet, [facility]/pharmacy #[id number], Partial fill upon patient request ifthe prescription is for a schedule II opioid drug.,... Start Date: 09/29/20 Status: Ordered MoviPrep oral powder for reconstitution 240 mL, By Mouth, Every 10 minutes, # 1 each, 0 Refills, Maintenance, 10/05/20 16:48:00 EDT, REC Powder, [facility]/pharmacy #[id number], Partial fill upon patient request if the prescription is for a schedule IIopioid drug., 240 mL By Mouth Every 10 minutes, 155... Start Date: 10/05/20 Status: Ordered naproxen sodium 220 mg oral [...] 16:40:30 EDT, Aerosol, Route to Pharmacy Electronically, [id number], [facility]/pharmacy #1972 Start Date: 11/26/18 Stop Date: 06/24/19 Status: Ordered sertraline 100 mg oral tablet 1.5 tablet = 150 mg, By Mouth, Daily, # 135 tablet, 0 Refills, Maintenance, 08/10/20 14:56:00 EDT, Tablet, [facility]/pharmacy #0084, Partial fill upon patient request if the prescription is for a schedule II opioid drug., 155, cm, 08/10/20 12:31:00 EDT, Hei... Start Date: 08/10/20 Stop Date: 11/08/20 Status: Ordered Xyzal 5 mg oral tablet 1 tablet = 5 mg, By Mouth, Daily in PM, # 90 tablet, 0 Refills, Maintenance, 09/08/20 16:33:00 EDT,Tablet, [facility]/pharmacy #0084, Partial fill upon patient request if the prescription is for a scheduleII opioid drug., 1 tablet By Mouth Daily in PM,x90... Start Date: 09/08/20 Stop Date: 12/07/20 Status: Ordered Zofran 4 mg oral tablet 1 tablet = 4 mg, By Mouth, Every 8 hours, # 15 tablet, 0 Refills, Maintenance, 08/24/20 14:56:00 EDT, Tablet, [facility]/pharmacy #0084, Partial fill upon patient request if the prescription is for a schedule II opioid drug., 155, cm, 08/24/20 12:16:00 EDT,... Start Date: 08/24/20 Stop Date: 08/29/20 Status: Ordered Zofran 4 mg oral tablet 1 tablet = 4 mg, By Mouth, Every 8 hours, PRN Nausea & Vomiting, # 15 tablet, 0 Refills, Maintenance, 07/27/20 14:54:00 EDT, Tablet, [facility]/pharmacy #0084, Partial fill upon patient request if [...]
--- OUTSIDE RECORDS SUMMARY | 2024-01-06 23:55 | XMS_ITS | Continuity of Care Document ---
Author Organization [facility] Address [address] [place] [address]- Care Team Providers Care Dental Prosthetist Name Role Phone Not on Staff, PCP Primary Care Physician Unavail able [facility] - 05/07/[address] [address]- [facility] Discharge Disposition: A-D/C Walkout Attending Physician: Not on Staff, Attending MD Admitting Physician: Not on Staff, Admitting MD Referring Physician: Not on Staff, Referring [...] 1Result Comment: pt. tolerated inj. without complications....CO [facility]# [id number] 2Result Comment: [03/21/2018] given w/out incident ndc: [id number] 3Result Comment: [02/22/2016] pt. tolerated inj. without [...] 01/21/19 6:58:02 EDT, Route to Pharmacy Electronically, [id number], [facility] Start Date: 01/21/19 Status: Ordered [...] 16:40:30 EDT, Aerosol, Route to Pharmacy Electronically, [id number], [facility] Start Date: 11/26/18 Stop Date: [...] Most recent to oldest [Reference Range]: 1 Weight 73.2 kg (05/07/19 2:13 PM) Oxygen Saturation [94-100 %] 98 % (05/07/19 2:13 PM) Pulse Rate [55-90 bpm] 81 bpm (05/07/19 2:13 PM) Blood Pressure [90-138/55-84 mm Hg] 126/ 78mm Hg (05/07/19 2:13 PM) Respiratory Rate [16-30 br/min] 18 br/mi n (05/07/19 2:13 PM) Temperature [96.8-100.4 DegF] 97.9 DegF (05/07/19 2:13 PM) Mode of Delivery (Oxygen) Room air (05/07/19 2:13 PM) Blood pressure sites Arm, right (05/07/19 2:13 PM) Temperature Route Oral (05/07/19 2:13 PM) Dry Weight 73.2 kg (05/07/19 2:13 PM) Weight Obtained Via Standing scale (05/07/19 2:13 PM) Dry Weight Obtained Via Standing scale (05/07/19 2:13 PM) Social History Social History Type Response Smoking Status Current every day dimitris spaulding; Tobacco user in household: No; Type: Cigarettes; Other: 1/2 pack daily; Stopped at age: 30; entered on: 10/02/17 Sex
--- OUTSIDE RECORDS SUMMARY | 2024-01-06 23:55 | XMS_ITS | Continuity of Care Document ---
Author Organization [facility] Address [address] [place] [address]- Care Team Providers Care Paperhanger Apprentice Name Role Phone Davida Ricardo NP Primary Care Physician Encounter [facility] Date(s): 12/29/21 - 01/28/22 [facility] [address] [place] [address]- Attending Physician: Vikram Worthington Admitting Physician: Admtr, [id number] Referring Physician: Admtr, [id number] Allergies, Adverse Reactions, [...] Comment: pt. tolerated inj. without complications....CO [facility]# [id number] 2Result Comment: [03/21/2018] given w/out incident [facility]: [id number] 3Result Comment: [02/22/2016] pt. tolerated inj. without [...] 16:54:00 EDT, Aerosol, Route to Pharmacy Electronically, [id number], [facility], 155, cm, [...] Sex Patient Care team information Personnel Name: Davida Ricardo NP Address: Address: [address] [place] [id number]
--- OUTSIDE RECORDS SUMMARY | 2024-01-06 23:55 | XMS_ITS | Continuity of Care Document ---
Author Organization [facility] Address [address] [place] [address]- Care Team Providers Care Gas Station Operator Name Role Phone Davida Ricardo NP Primary Care Physician [phone] [facility] - 02/13/21 [facility] [address] [place] [address]- Allergies, Adverse Reactions, Alerts Substance Reaction Severity [...] 1Result Comment: pt. tolerated inj. without complications....CO [facility]# [id number] 2Result Comment: [03/21/2018] given w/out incident nd: [id number] 3Result Comment: [02/22/2016] pt. tolerated inj. without complications...CO 4Result Comment: [04/23/2015] given w/out incident 5Admin Note: given w/out incident/VIS given 10/24/2011 6Admin Note: given w/o incident, vis sheet given.mass bio 7Admin Note: [facility] Medications Flonase 50 mcg/inh nasal spray 1 sprays, Nares, Both, Daily, # 16 Gm, 5 Refills, Maintenance, 10/08/20 16:33:00 EDT, [place], [facility]/pharmacy #[id number], Partial fill upon patient request if [...] Refills, Maintenance, 09/29/20 14:59:00 EDT, DIS Tablet, [facility]/pharmacy #[id number], Partial fill upon patient request ifthe [...] 12:49:00 EDT, Aerosol, Route to Pharmacy Electronically, [id number], [facility]pharm[facility] #1972, 155, cm, 11/10/20 9:00:00 EDT, [place]... Start Date: 01/14/21 Stop Date: 08/12/21 Status: Ordered sertraline 100 mg oral tablet 1.5 tablet, By Mouth, Daily, # 135 tablet, 1 Refills, Maintenance, 11/15/20 14:06:00 EDT, [facility] [id number], 155, cm, 11/10/20 9:00:00 EDT, Height, 71.5, kg, 11/10/20 9:00:00 EDT, Dry Weight Start Date: 11/15/20 Status: Ordered Xyzal 5 mg oral tablet 1 tablet = 5 mg, By Mouth, Daily in PM, # 90 tablet, 0 Refills, Maintenance, 09/08/20 16:33:00 EDT,Phil, [facility]/pharmacy #[id number], Partial fill upon patient request if [...]
--- OUTSIDE RECORDS SUMMARY | 2024-01-06 23:55 | XMS_ITS | Continuity of Care Document ---
Author Organization [facility] Address [address], [address] [place] [address]- Care Team Providers Care Range Master Name Role Phone Verónica Manrique Primary Care Physician [facility] 06[facility]22 - 07/14/22 [facility] [address], 4th [place] [address]- Allergies, Adverse Reactions, Alerts Substance Reaction Severity [...] 1Result Comment: pt. tolerated inj. without complications....CO [facility]# [id number] 2Result Comment: [03/21/2018] given w/out incident [facility]: [phone] 3Result Comment: [02/22/2016] pt. tolerated inj. without [...] 16:54:00 EDT, Aerosol, Route to Pharmacy Electronically, [id number], [facility], 155, cm, [...] Associate Professional Member Role: PCP Address: Address: [address] [place] [address] [place] [address]- Care Team Related Persons Name: TANYA BONILLA Address: home [address] [place] [address] Name: MARTIN GANNON Address: home [address] [place] [address] Name: MARTIN GONZALEZ Address: [address] [facility] [place] [address] Name: JUDE GONZALEZ Address: home [address] [facility] Name: DERICK GONZALEZ Address: home [address] [place] [address] Name: BLAZE HOWARD Address: home [address] [place] [address] Name: BLAZE HOWARD Address: [place] [address] [place] [address] Name: EDELMIRA WORTHINGTON Address: [address] [address] Name: EDELMIRA VILLALOBOS Address: home [address] [place] [address] Name: TAYLOR MOCTEZUMA Address: [place], [place] Name: LINN SWANSON
--- OUTSIDE RECORDS SUMMARY | 2024-01-06 23:56 | XMS_ITS | Continuity of Care Document ---
Author Organization [facility] Address [address] [place] [address]- Care Team Providers Care Data Entry Coordinator Name Role Phone Davida Ricardo NP Primary Care Physician [facility]): 09/04/20 - 10/04/20 [facility] [address] [place] [address]- Allergies, Adverse Reactions, Alerts Substance Reaction Severity [...] 1Result Comment: pt. tolerated inj. without complications....CO [facility]# [id number] 2Result Comment: [03/21/2018] given w/out incident [facility]: [id number] 3Result Comment: [02/22/2016] pt. tolerated inj. without complications...CO 4Result Comment: [04/23/2015] given w/out incident 5Admin Note: given w/out incident/VIS given 10/24/2011 6Admin Note: given w/o incident, vis sheet given.mass bio 7Admin Note: [facility] Medications Flonase 50 mcg/inh nasal spray 1 sprays, Nares, Both, Daily, for 30 days, # 16 Gm, 0 Refills, Hard Stop 10/08/20 16:33:00 EDT, 09/08/20 16:33:00 EDT, [place], [facility]/pharmacy #[id number], Partial fill upon patient request if the prescriptionis for a schedule II opioid drug., 155, cm, ... Start Date: 09/08/20 Stop Date: 10/08/20 Status: Ordered Flonase 50 mcg/inh nasal spray 1 sprays, Nares, Both, Daily, # 16 Gm, 5 Refills, Maintenance, 10/08/20 16:33:00 EDT, [place], [facility]/pharmacy #[id number], Partial fill upon patient [...] Refills, Maintenance, 09/29/20 14:59:00 EDT, DIS Tablet, [facility]/pharmacy #[id number], Partial fill upon patient request ifthe prescription is for a schedule II opioid drug.,... Start Date: 09/29/20 Status: Ordered naproxen sodium 220 mg oral [...] 16:40:30 EDT, Aerosol, Route to Pharmacy Electronically, [id number], [facility] Start Date: 11/26/18 Stop Date: 06/24/19 Status: Ordered sertraline 100 mg oral tablet 1.5 tablet = 150 mg, By Mouth, Daily, # 135 tablet, 0 Refills, Maintenance, 08/10/20 14:56:00 EDT, Tablet, [facility]/pharmacy #[id number], Partial fill upon patient request if the prescription is for a schedule II opioid drug., 155, cm, 08/10/20 12:31:00 EDT, [place]... Start Date: 08/10/20 Stop Date: 11/08/20 Status: Ordered Xyzal 5 mg oral tablet 1 tablet = 5 mg, By Mouth, Daily in PM, # 90 tablet, 0 Refills, Maintenance, 09/08/20 16:33:00 EDT,Tablet, [facility] #[id number], Partial fill upon patient request if the prescription is for a scheduleII opioid drug., 1 tablet By Mouth Daily in PM,x90... Start Date: 09/08/20 Stop Date: 12/07/20 Status: Ordered Zofran 4 mg oral tablet 1 tablet = 4 mg, By Mouth, Every 8 hours, # 15 tablet, 0 Refills, Maintenance, 08/24/20 14:56:00 EDT, Tablet, [facility]/pharm[facility] #0084, Partial fill upon patient request if the prescription is for a schedule II opioid drug., 155, cm, 08/24/20 12:16:00 EDT,... Start Date: 08/24/20 Stop Date: 08/29/20 Status: Ordered Zofran 4 mg oral tablet 1 tablet = 4 mg, By Mouth, Every 8 hours, PRN Nausea & Vomiting, # 15 tablet, 0 Refills, Maintenance, 07/27/20 14:54:00 EDT, Tablet, [facility]/pharmacy #[id number], Partial fill upon patient [...]
--- OUTSIDE RECORDS SUMMARY | 2024-01-06 23:56 | XMS_ITS | Continuity of Care Document ---
Author Organization [facility] Address [address] [place] [address]- Care Team Providers Care Embedded Software Architect Name Role Phone Davida Ricardo NP Primary Care Physician [facility]s): 12/11/20 - 01/10/21 [facility] [address] [place] [address]- Allergies, Adverse Reactions, Alerts Substance Reaction Severity [...] 1Result Comment: pt. tolerated inj. without complications....[facility]# [id number] 2Result Comment: [03/21/2018] given w/out incident nd: [id number] 3Result Comment: [02/22/2016] pt. tolerated inj. without complications...CO 4Result Comment: [04/23/2015] given w/out incident 5Admin Note: given w/out incident/VIS given 10/24/2011 6Admin Note: given w/o incident, vis sheet given.mass bio 7Admin Note: [facility] Medications Flonase 50 mcg/inh nasal spray 1 sprays, Nares, Both, Daily, # 16 Gm, 5 Refills, Maintenance, 10/08/20 16:33:00 EDT, [place], [facility]/pharmacy #[id number], Partial fill upon patient request if [...] Refills, Maintenance, 09/29/20 14:59:00 EDT, DIS Tablet, [facility]/pharmacy #0084, Partial fill upon patient request ifthe [...] 16:40:30 EDT, Aerosol, Route to Pharmacy Electronically, [id number], [facility]1972 Start Date: 11/26/18 Stop Date: 06/24/19 Status: Ordered sertraline 100 mg oral tablet 1.5 tablet, By Mouth, Daily, # 135 tablet, 1 Refills, Maintenance, 11/15/20 14:06:00 EDT, [facility] [id number], 155, cm, 11/10/20 9:00:00 EDT, Height, 71.5, [...]
--- OUTSIDE RECORDS SUMMARY | 2024-01-06 23:56 | XMS_ITS | Continuity of Care Document ---
Author Organization [facility] Address [address] [place] [address]- Care Team Providers Care Weights And Measures Inspector Name Role Phone Davida Ricardo NP Primary Care Physician [facility]): 12/08/20 - 01/07/21 [facility] [address] [place] [address]- Allergies, Adverse Reactions, Alerts Substance Reaction Severity [...] inj. without complications....CO [facility]# [id number] 2Result Comment: [03/21/2018] given w/out incident nd: [id number] 3Result Comment: [02/22/2016] pt. tolerated inj. without complications...CO 4Result Comment: [04/23/2015] given w/out incident 5Admin Note: given w/out incident/VIS given 10/24/2011 6Admin Note: given w/o incident, vis sheet given.mass bio 7Admin Note: [facility] Medications Flonase 50 mcg/inh nasal spray 1 sprays, Nares, Both, Daily, # 16 Gm, 5 Refills, Maintenance, 10/08/20 16:33:00 EDT, [place], [facility]/pharmacy #[id number], Partial fill upon patient request [...] Refills, Maintenance, 09/29/20 14:59:00 EDT, DIS Tablet, [facility]/pharmacy #[id number], Partial fill upon patient request [...] 16:40:30 EDT, Aerosol, Route to Pharmacy Electronically, [id number], [facility]/pharmacy #1972 Start Date: 11/26/18 Stop Date: 06/24/19 Status: Ordered sertraline 100 mg oral tablet 1.5 tablet, By Mouth, Daily, # 135 tablet, 1 Refills, Maintenance, 11/15/20 14:06:00 EDT, [facility] [id number], 155, cm, 11/10/20 9:00:00 EDT, Height, 71.5, [...]
--- OUTSIDE RECORDS SUMMARY | 2024-01-06 23:56 | XMS_ITS | Continuity of Care Document ---
Author Organization [facility] Address [address] [place] [address]- Care Team Providers Care Client Insights Consultant Name Role Phone Davida Ricardo NP Primary Care Physician [phone] [facility] 07[facility]20 - 08/28/20 [facility] [address] [place] [address]- Allergies, Adverse Reactions, Alerts Substance Reaction Severity [...] 1Result Comment: pt. tolerated inj. without complications....CO [facility]# [id number] 2Result Comment: [03/21/2018] given w/out incident [facility]: [id number] 3Result Comment: [02/22/2016] pt. tolerated inj. without [...] 16:40:30 EDT, Aerosol, Route to Pharmacy Electronically, [id number], [facility] #1972 Start Date: 11/26/18 Stop Date: 06/24/19 Status: Ordered sertraline 100 mg oral tablet 1.5 tablet = 150 mg, By Mouth, Daily, # 135 tablet, 0 Refills, Maintenance, 08/10/20 14:56:00 EDT, Tablet, [facility]/pharmacy #[id number], Partial fill upon patient request if the prescription is for a schedule II opioid drug., 155, cm, 08/10/20 12:31:00 EDT, Hei... Start Date: 08/10/20 Stop Date: 11/08/20 Status: Ordered Zofran 4 mg oral tablet 1 tablet = 4 mg, By Mouth, Every 8 hours, # 15 tablet, 0 Refills, Maintenance, 08/24/20 14:56:00 EDT, Tablet, [facility]/pharmacy #0084, Partial fill upon patient [...]
--- OUTSIDE RECORDS SUMMARY | 2024-01-06 23:56 | XMS_ITS | Continuity of Care Document ---
Author Organization [facility] Address [address] [place] [address]- Care Team Providers Care Account Development Specialist Name Role Phone Davida Ricardo NP Primary Care Physician [facility] 11[facility]16[facility]20 - 12/16/20 [facility] [address] [place] [address] [place] Allergies, Adverse Reactions, Alerts Substance Reaction Severity [...] 1Result Comment: pt. tolerated inj. without complications....CO [facility]# [id number] 2Result Comment: [03/21/2018] given w/out incident nd: [id number] 3Result Comment: [02/22/2016] pt. tolerated inj. without complications...CO 4Result Comment: [04/23/2015] given w/out incident 5Admin Note: given w/out incident/VIS given 10/24/2011 6Admin Note: given w/o incident, vis sheet given.mass bio 7Admin Note: [facility] Medications Flonase 50 mcg/inh nasal spray 1 sprays, Nares, Both, Daily, # 16 Gm, 5 Refills, Maintenance, 10/08/20 16:33:00 EDT, [place], [facility]/pharmacy #0084, Partial fill upon patient [...] Refills, Maintenance, 09/29/20 14:59:00 EDT, DIS Tablet, [facility]/pharmacy #0084, Partial fill upon patient [...] 16:40:30 EDT, Aerosol, Route to Pharmacy Electronically, [id number], [facility]/pharmacy #1972 Start Date: 11/26/18 Stop Date: 06/24/19 Status: Ordered sertraline 100 mg oral tablet 1.5 tablet, By Mouth, Daily, # 135 tablet, 1 Refills, Maintenance, 11/15/20 14:06:00 EDT, [facility] [id number], 155, cm, 11/10/20 9:00:00 EDT, Height, 71.5, [...]
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
--- OUTSIDE RECORDS SUMMARY | 2024-01-06 23:56 | XMS_ITS | Continuity of Care Document ---
Author Organization [facility] Adult Address [address] [place] [address]- Care Team Providers Care Tv Production Assistant Name Role Phone Davida Ricardo NP Primary Care Physician [facility] Date(s): 09/21/20 - 10/21/20 [facility] Adult [address] [place] [address]- Allergies, Adverse Reactions, Alerts Substance Reaction Severity [...] inj. without complications....CO [facility]# [id number] 2Result Comment: [03/21/2018] given w/out incident [facility]: [id number] 3Result Comment: [02/22/2016] pt. tolerated inj. without complications...CO 4Result Comment: [04/23/2015] given w/out incident 5Admin Note: given w/out incident/VIS given 10/24/2011 6Admin Note: given w/o incident, vis sheet given.mass bio 7Admin Note: [facility] Medications Flonase 50 mcg/inh nasal spray 1 sprays, Nares, Both, Daily, # 16 Gm, 5 Refills, Maintenance, 10/08/20 16:33:00 EDT, [place], [facility]/pharmacy #[id number], Partial fill upon patient request if [...] 09/29/20 14:59:00 EDT, DIS Tablet, [facility]/pharmacy #[id number], Partial fill upon patient request ifthe [...] 16:40:30 EDT, Aerosol, Route to Pharmacy Electronically, [id number], [facility]/pharmacy #1972 Start Date: 11/26/18 Stop Date: 06/24/19 Status: Ordered sertraline 100 mg oral tablet 1.5 tablet = 150 mg, By Mouth, Daily, # 135 tablet, 0 Refills, Maintenance, 08/10/20 14:56:00 EDT, Tablet, [facility]/pharmacy #[id number], Partial fill upon patient request if the prescription is for a schedule II opioid drug., 155, cm, 08/10/20 12:31:00 EDT, Hei... Start Date: 08/10/20 Stop Date: 11/08/20 Status: Ordered Xyzal 5 mg oral tablet 1 tablet = 5 mg, By Mouth, Daily in PM, # 90 tablet, 0 Refills, Maintenance, 09/08/20 16:33:00 EDT,Tablet, [facility]/pharmacy #[id number], Partial fill upon patient request if [...]
--- OUTSIDE RECORDS SUMMARY | 2024-01-06 23:56 | XMS_ITS | Continuity of Care Document ---
Author Organization [facility] Adult Address [address] [place] [address]- Care Team Providers Care Commodity Buyer Name Role Phone Davida Ricardo NP Primary Care Physician [facility] Date[facility]s): 09/22/21 - 10/22/21 [facility] Adult [address] [place] [address]- Allergies, Adverse Reactions, Alerts Substance Reaction Severity [...] Comment: pt. tolerated inj. without complications....CO [facility]# [id number] 2Result Comment: [03/21/2018] given w/out incident ndc: [id number] 3Result Comment: [02/22/2016] pt. tolerated inj. without [...]
--- OUTSIDE RECORDS SUMMARY | 2024-01-06 23:56 | XMS_ITS | Continuity of Care Document ---
Author Organization [facility] Adult Address [address] [place] [address]- Care Team Providers Care Golf Shoe Spike Assembler Name Role Phone Davdia Ricardo NP Primary Care Physician Encounter [facility] Date(s): 08/24/20 - 08/31/20 [facility] Adult [address] [place] [address]- Encounter Diagnosis Nausea(Discharge Diagnosis) - 08/24/20 PTSD (post-traumatic stress disorder)(Discharge Diagnosis) - 08/24/20 Attending Physician: Davida Ricardo NP Allergies, Adverse [...] Comment: pt. tolerated inj. without complications....CO [facility]# [id number] 2Result Comment: [03/21/2018] given w/out incident ndc: [id number] 3Result Comment: [02/22/2016] pt. tolerated inj. without [...] 16:40:30 EDT, Aerosol, Route to Pharmacy Electronically, [id number], [facility]/pharmacy #1972 Start Date: 11/26/18 Stop Date: 06/24/19 Status: Ordered sertraline 100 mg oral tablet 1.5 tablet = 150 mg, By Mouth, Daily, # 135 tablet, 0 Refills, Maintenance, 08/10/20 14:56:00 EDT, Tablet, [facility]/pharmacy #[id number], Partial fill upon patient request if the prescription is for a schedule II opioid drug., 155, cm, 08/10/20 12:31:00 EDT, Hei... Start Date: 08/10/20 Stop Date: 11/08/20 Status: Ordered Zofran 4 mg oral tablet 1 tablet = 4 mg, By Mouth, Every 8 hours, # 15 tablet, 0 Refills, Maintenance, 08/24/20 14:56:00 EDT, Tablet, [facility]/pharmacy #[id number], Partial fill upon patient request [...] Dates Health Status Cl inical Service Informant Nausea Discharge Diagnosis 08/24/20 PTSD (post-traumatic stress disorder) Discharge Diagnosis 08/24/20 Vital Signs Most recent to oldest [Reference Range]: 1 Height 155 cm (08/24/20 12:16 PM) Weight Obtained Via Patient/family state d (08/24/20 12:16 PM) Social History Social History Type Response Smoking Status 5-9 cigarettes (betw een 1/4 to 1/2 pack)/day in last 30 days; Other: 1/2 PPD since 11 about 24-25 years; entered on: 06/15/20 Sex
--- OUTSIDE RECORDS SUMMARY | 2024-01-06 23:56 | XMS_ITS | Continuity of Care Document ---
Author Organization [facility] Address [address] [place] [address]- Care Team Providers Care Rivet Spinner Name Role Phone Davida Ricardo NP Primary Care Physician [phone] Encounter [facility] Date(s): 08/07/20 - 09/06/20 [facility] Medicine [address] [place] [address] Attending Physician: Vikram Worthington Admitting Physician: AdmtrVikram Referring Physician: Admtr ArAnitha Allergies, Adverse Reactions, Alerts Substance Reaction Severity [...] Comment: pt. tolerated inj. without complications....CO [facility]# [id number] 2Result Comment: [03/21/2018] given w/out incident ndc: [id number] 3Result Comment: [02/22/2016] pt. tolerated inj. without [...] 16:40:30 EDT, Aerosol, Route to Pharmacy Electronically, [id number], [facility]/pharmacy #1972 Start Date: 11/26/18 Stop Date: 06/24/19 [...]
--- OUTSIDE RECORDS SUMMARY | 2024-01-06 23:56 | XMS_ITS | Continuity of Care Document ---
Author Organization [facility] Adult Address [address] [place] [address]- Care Team Providers Care Chemistry Quality Control Technician Name Role Phone Davida Ricardo NP Primary Care Physician [facility] Date[facility]s): 03/09/21 - 04/08/21 [facility] Adult [address] [place] [address]- Allergies, Adverse Reactions, Alerts Substance Reaction Severity [...] complications....CO [facility]# [id number] 2Result Comment: [03/21/2018] given w/out incident nd: [id number] 3Result Comment: [02/22/2016] pt. tolerated inj. without complications...CO 4Result Comment: [04/23/2015] given w/out incident 5Admin Note: given w/out incident/VIS given 10/24/2011 6Admin Note: given w/o incident, vis sheet given.mass bio 7Admin Note: [facility] Medications Flonase 50 mcg/inh nasal spray 1 sprays, Nares, Both, Daily, # 16 Gm, 5 Refills, Maintenance, 10/08/20 16:33:00 EDT, [place], [facility]/pharmacy #[id number], Partial fill upon patient request if [...] Refills, Maintenance, 09/29/20 14:59:00 EDT, DIS Tablet, [facility]/pharmacy #0084, Partial fill upon patient request ifthe [...] 12:49:00 EDT, Aerosol, Route to Pharmacy Electronically, [id number], [facility]/pharmacy #1972, 155, cm, 11/10/20 9:00:00 EDT, [place]... Start Date: 01/14/21 Stop Date: 08/12/21 Status: Ordered sertraline 100 mg oral tablet 1.5 tablet, By Mouth, Daily, # 135 tablet, 1 Refills, Maintenance, 11/15/20 14:06:00 EDT, [facility] [id number], 155, cm, 11/10/20 9:00:00 EDT, Height, 71.5, kg, 11/10/20 9:00:00 EDT, Dry Weight Start Date: 11/15/20 Status: Ordered Xyzal 5 mg oral tablet 1 tablet = 5 mg, By Mouth, Daily in PM, # 90 tablet, 0 Refills, Maintenance, 09/08/20 16:33:00 EDT,Tablet, [facility]/pharmacy #[id number], Partial fill upon patient request if [...]
--- OUTSIDE RECORDS SUMMARY | 2024-01-06 23:56 | XMS_ITS | Continuity of Care Document ---
Author Organization [facility] Adult Address [address] [place] [address]- Care Team Providers Care Chief Of Hospital Medicine Name Role Phone Davida Ricardo NP Primary Care Physician Encounter [facility] Date(s): 01/17/22 - 01/24/22 [facility] Adult [address] [place] [address]- Encounter Diagnosis History of opioid abuse(Discharge Diagnosis) - 01/17/22 PTSD (post-traumatic stress disorder)(Discharge Diagnosis) - 01/17/22 RHYS (generalized anxiety disorder)(Discharge Diagnosis) - 01/17/22 Attending Physician: Davida Ricardo NP Allergies, Adverse [...] pt. tolerated inj. without complications....CO [facility]# [id number] 2Result Comment: [03/21/2018] given w/out incident [facility]: [id number] 3Result Comment: [02/22/2016] pt. tolerated inj. without [...] 16:54:00 EDT, Aerosol, Route to Pharmacy Electronically, [id number], [facility], 155, cm, [...] Dates Health Status Cl inical Service Informant History of opioid abuse Discharge Diagnosis 01/17/22 PTSD (post-traumatic stress disorder) Discharge Diagnosis 01/17/22 RHYS (generalized anxiety disorder) Discharge Diagnosis 01/17/22 Vital Signs Most recent to oldest [Reference Range]: 1 Height 155 cm (01/17/22 1:38 PM) Social History Social History Type Response Smoking Status 5-9 cigarettes (betw een 1/4 to 1/2 pack)/day in last 30 days; Other: 1/2 PPD since 11 about 24-25 years; entered on: 06/15/20 Sex Patient Care team information Personnel Name: Davida Ricardo NP Address: Address: [address] [place] [address]
--- OUTSIDE RECORDS SUMMARY | 2024-01-06 23:56 | XMS_ITS | Continuity of Care Document ---
Author Organization [facility] Adult Address [address] [place] [address]- Care Team Providers Care Potato Picker Name Role Phone Davida Ricardo NP Primary Care Physician Encounter [facility] Date(s): 08/10/20 - 08/17/20 [facility] Adult [address] [place] [address]- Encounter Diagnosis PTSD (post-traumatic stress disorder)(Discharge Diagnosis) - 08/10/20 Easy bruising(Discharge Diagnosis) - 08/10/20 Attending Physician: Davida Ricardo NP Allergies, Adverse [...] 1Result Comment: pt. tolerated inj. without complications....CO [facility]# [id number] 2Result Comment: [03/21/2018] given w/out incident ndc: [id number] 3Result Comment: [02/22/2016] pt. tolerated inj. without [...] 16:40:30 EDT, Aerosol, Route to Pharmacy Electronically, [id number], [facility]/pharmacy #1972 Start Date: 11/26/18 Stop Date: 06/24/19 Status: Ordered sertraline 100 mg oral tablet 1.5 tablet = 150 mg, By Mouth, Daily, # 135 tablet, 0 Refills, Maintenance, 08/10/20 14:56:00 EDT, Tablet, [facility]/pharmacy #0084, Partial fill upon patient request [...] Dates Health Status Cl inical Service Informant PTSD (post-traumatic stress disorder) Discharge Diagnosis 08/10/20 Easy bruising Discharge Diagnosis 08/10/20 Vital Signs Most recent to oldest [Reference Range]: 1 Height 155 cm (08/10/20 12:31 PM) Social History Social History Type Response Smoking Status 5-9 cigarettes (betw een 1/4 to 1/2 pack)/day in last 30 days; Other: 1/2 PPD since 11 about 24-25 years; entered on: 06/15/20 Sex
--- OUTSIDE RECORDS SUMMARY | 2024-01-06 23:56 | XMS_ITS | Continuity of Care Document ---
Author Organization [facility] Adult Address [address] [place] [address]- Care Team Providers Care Abrasive Sawyer Name Role Phone Davida Ricardo NP Primary Care Physician Encounter [facility] Date(s): 12/03/21 - 01/06/22 [facility] Adult [address] [place] [address]- Attending Physician: Sky Almanzar MD Allergies, Adverse [...] Comment: pt. tolerated inj. without complications....CO [facility]# [id number] 2Result Comment: [03/21/2018] given w/out incident [facility]: [id number] 3Result Comment: [02/22/2016] pt. tolerated inj. without [...] Team Personnel Name: Davida Ricardo NP Address: [address] [place] [address]
--- OUTSIDE RECORDS SUMMARY | 2024-01-06 23:56 | XMS_ITS | Continuity of Care Document ---
Author Organization [facility] Address [address] [place] [address]- Care Team Providers Care First Cook Name Role Phone Verónica Manrique Primary Care Physician [facility] Date[facility]s): 06/09/23 - 06/09/[address] [address] Attending Physician: Not on Staff, Attending MD Allergies, Adverse Reactions, Alerts Substance Reaction [...] 1Result Comment: pt. tolerated inj. without complications....CO [facility]# [id number] 2Result Comment: [03/21/2018] given w/out incident ndc: [id number] 3Result Comment: [02/22/2016] pt. tolerated inj. without complications...CO 4Result Comment: [04/23/2015] given w/out incident 5Admin Note: given w/out incident/VIS given 10/24/2011 6Admin Note: given w/o incident, vis sheet given.mass bio 7Admin Note: [facility] Medications albuterol 0.083% inhalation solution 3 mL = 2.5 mg, Inhalation, Every 4 hours, PRN for wheezing, coughing or shortness of breath, # 50 each, 0 Refills, Maintenance, 06/09/23 12:23:00 EST, Solution, [facility][id number], Partial fill upon patient request if the prescription is for a schedul... Start Date: 06/09/23 Status: Ordered Suboxone 12 mg-3 mg sublingual film 1 film, Sublingual, Daily, dissolve under the tongue, 0 Refills, Maintenance, 05/12/23 4:35:00 EST,Film, Partial fill upon patient request if the prescription is for a schedule II opioid drug. Start Date: 05/12/23 Status: Ordered Ventolin HFA 108 mcg/inh inhalation [...] Associate Professional Member Role: PCP Address: Address: [address] [place] [address] [place] [address]- Care Team Related Persons Name: TANYA BONILLA Address: home [address] [place], [place] Name: MARTIN GANNON Address: [address] [place] [address] Name: MARTIN GONZALEZ Address: home [address] [place], [place] Name: JUDE GONZALEZ Address: home [address] [place] Name: DERICK GONZALEZ Address: [address] [place] [address] Name: BLAZE HOWARD Address: [address] [place] [address] Name: BLAZE HOWARD Address: [address] [place] [address] Name: EDELMIRA WORTHINGTON Address: [address] [address] Name: EDELMIRA VILLALOBOS Address: home [address] [place], [place] Name: TAYLOR MOCTEZUMA Address: [place], [place] Name: LINN SWANSON
--- OUTSIDE RECORDS SUMMARY | 2024-01-06 23:56 | XMS_ITS | Continuity of Care Document ---
Author Organization [facility] Address [address], [address] [place] [address]- Care Team Providers Care Special Education Kindergarten Teacher Name Role Phone Ines Woods Primary Care Physician [phone] Encounter [facility] Date(s): 11/22/23 - 12/22/23 [facility] [address] [place], [place] [address] Attending Physician: Vikram Worthington Admitting Physician: Vikram Worthington Referring Physician: AdmVikram north Allergies, Adverse Reactions, Alerts Substance Reaction Severity Status doxycycline sob dizzy Active amoxicillin sob dizzy Active Benadryl hives Active Apples itchy throat, rash Active Tamiflu Rash Active Immunizations Given and Recorded Vaccine Date Status Refusal Reason pneumococcal 20-valent conjugate vaccine 04/10/23 Recorded SARS-CoV-2(COVID-19)mRNA-LNP vac([id number]) 04/10/23 Recorded SARS-CoV-2 (COVID-19) mRNA BNT-162b2 vac [...] 1Result Comment: pt. tolerated inj. without complications....CO [facility]# [id number] 2Result Comment: [03/21/2018] given w/out incident [facility]: [id number] 3Result Comment: [02/22/2016] pt. tolerated inj. without [...] Associate Professional Member Role: PCP Address: Address: [address] [place] [address] [place] [address]- Care Team Related Persons Name: TANYA BONILLA Address: home [address] [place] [address] Name: MARTIN GANNON Address: [address] [place] [address] Name: MARTIN GONZALEZ Address: [address] [place] [address] Name: JUDE GONZALEZ Address: home [address] [place] Name: DERICK GONZALEZ Address: [address] [place] [address] Name: BLAZE HOWARD Address: [address] [place] [address] Name: BLAZE HOWARD Address: [address] [place] [address] Name: EDELMIRA WORTHINGTON Address: home [address] [place] [address] Name: EDELMIRA VILLALOBOS Address: [address] [facility] [place] [address] Name: TAYLOR MOCTEZUMA Address: [place] [address] Name: LINN SWANSON
--- OUTSIDE RECORDS SUMMARY | 2024-01-06 23:56 | XMS_ITS | Continuity of Care Document ---
[facility] Address [address], [address]t [place] [address]- Care Team Providers Care Bagging Machine Operator Name Role Phone Ines Woods Primary Care Physician [facility] Date[facility]s): 11/21/23 - 12/21/23 [facility] [address], [address]th [place] [address]- Allergies, Adverse Reactions, Alerts Substance Reaction Severity Status doxycycline sob dizzy Active amoxicillin sob dizzy Active Benadryl hives Active Apples itchy throat, rash Active Tamiflu Rash Active Immunizations Given and Recorded Vaccine Date Status Refusal Reason pneumococcal 20-valent conjugate vaccine 04/10/23 Recorded SARS-CoV-2(COVID-19)mRNA-LNP vac([id number]) 04/10/23 Recorded SARS-CoV-2 (COVID-19) mRNA BNT-162b2 vac [...] tolerated inj. without complications....CO [facility]# [id number] 2Result Comment: [03/21/2018] given w/out incident [facility]: [id number] 3Result Comment: [02/22/2016] pt. tolerated inj. without [...] Associate Professional Member Role: PCP Address: Address: [address] [place] [address]- Care Team Related Persons Name: TANYA BONILLA Address: home [address] [place] [address] Name: MARTIN GANNON Address: [address] [place] [address] Name: MARTIN GONZALEZ Address: home [address] [place] [address] Name: JUDE GONZALEZ Address: [address] [place] Name: DERICK GONZALEZ Address: [address] [place] [address] Name: BLAZE HOWARD Address: [address] [place] [address] Name: BLAZE HOWARD Address: [address] [place] [address] Name: EDELMIRA WORTHINGTON Address: [address] [facility] [facility] [place] [address] Name: EDELMIRA VILLALOBOS Address: [address] [place] [address] Name: TAYLOR MOCTEZUMA Address: [place] [address] Name: LINN SWANSON
--- OUTSIDE RECORDS SUMMARY | 2024-01-06 23:56 | XMS_ITS | Continuity of Care Document ---
Author Organization [facility] Adult Address [address] [place] [address]- Care Team Providers Care Cisco Certified Internetwork Expert Name Role Phone Davida Ricardo NP Primary Care Physician [facility] Date(s): 09/13/21 - 10/13/21 [facility] Adult [address] [place] [address]- Allergies, Adverse Reactions, Alerts Substance Reaction Severity [...] Comment: pt. tolerated inj. without complications....CO [facility]# [id number] 2Result Comment: [03/21/2018] given w/out incident ndc: [id number] 3Result Comment: [02/22/2016] pt. tolerated inj. without [...]
--- OUTSIDE RECORDS SUMMARY | 2024-01-06 23:56 | XMS_ITS | Continuity of Care Document ---
Author Organization [facility] Adult Address [address] [place] [address]- Care Team Providers Care Helminthology Teacher Name Role Phone Davida Ricardo NP Primary Care Physician [phone] [facility]counter [facility] Date(s): 12/03/21 - 01/02/22 [facility] Adult [address] [place] [address]- Allergies, Adverse Reactions, Alerts Substance Reaction Severity [...] inj. without complications....CO [facility]# [id number] 2Result Comment: [03/21/2018] given w/out incident nd: [id number] 3Result Comment: [02/22/2016] pt. tolerated inj. without [...] Team Personnel Name: Davida Ricardo NP Address: [address] [place] [address]
--- OUTSIDE RECORDS SUMMARY | 2024-01-06 23:56 | XMS_ITS | Continuity of Care Document ---
Author [facility] Address [address], 4[address] [place] [address]- Care Team Providers Care Transportation Broker Name Role Phone Verónica Manrique Primary Care Physician [facility] Date(s): 05/30/22 - 06/29/22 [facility] [address], [address]th [place] [address]- Allergies, Adverse Reactions, Alerts Substance Reaction Severity [...] 1Result Comment: pt. tolerated inj. without complications....CO [facility]# [id number] 2Result Comment: [03/21/2018] given w/out incident [facility]: [id number] 3Result Comment: [02/22/2016] pt. tolerated inj. without [...] 16:54:00 EDT, Aerosol, Route to Pharmacy Electronically, [id number], [facility], 155, cm, [...] Associate Professional Member Role: PCP Address: Address: [address] [place] [address] [place] [address]- Care Team Related Persons Name: TANYA BONILLA Address: [address] [place] [address] Name: MARTIN GANNON Address: [address] [place] [address] Name: MARTIN GONZALEZ Address: [address] [place] [address] Name: JUDE GONZALEZ Address: [address] [facility] Name: DERICK GONZALEZ Address: [address] [place] [address] Name: BLAZE HOWARD Address: [address] [place] [address] Name: BLAZE HOWARD Address: [address] [place] [address] Name: EDELMIRA WORTHINGTON Address: [address] [address] Name: EDELMIRA VILLALOBOS Address: [address] [place] [address] Name: TAYLOR MOCTEZUMA Address: [place], [place] Name: LINN SWANSON
--- OUTSIDE RECORDS SUMMARY | 2024-01-06 23:56 | XMS_ITS | Continuity of Care Document ---
Author Organization [facility] Address [address] [place] [address]- Care Team Providers Care Leasing Sales Consultant Name Role Phone Davion FRY, Davida Primary Care Physician [phone] [facility]counter [facility]s): 12/29/21 - 01/05/22 [facility] [address] [place] [address]- Attending Physician: Abdi Ho DO Referring Physician: Davida Ricardo NP Allergies, Adverse [...] inj. without complications....CO [facility]# [id number] 2Result Comment: [03/21/2018] given w/out incident [facility]: [phone] 3Result Comment: [02/22/2016] pt. tolerated inj. without [...] Team Personnel Name: Davida Ricardo NP Address: [address] [place] [address]
--- OUTSIDE RECORDS SUMMARY | 2024-01-06 23:56 | XMS_ITS | Continuity of Care Document ---
Author Organization [facility] Adult Address [address] [place] [address]- Care Team Providers Care Regional Psychiatric Director Name Role Phone Davida Ricardo NP Primary Care Physician [place] [facility] [place] 07/[place]20 - 08/07/20 [facility] [address] [place] [address]- Encounter Diagnosis Crack cocaine use(Discharge Diagnosis) - 07/31/20 Depression(Discharge Diagnosis) - 07/31/20 Attending Physician: Davida Ricardo NP Allergies, Adverse [...] Comment: pt. tolerated inj. without complications....CO [facility]# [id number] 2Result Comment: [03/21/2018] given w/out incident ndc: [id number] 3Result Comment: [02/22/2016] pt. tolerated inj. without [...] 16:40:30 EDT, Aerosol, Route to Pharmacy Electronically, [id number], [facility]/pharmacy #1972 Start Date: 11/26/18 Stop Date: 06/24/19 Status: Ordered sertraline 100 mg oral tablet 1 tablet = 100 mg, By Mouth, Daily, # 30 tablet, 0 Refills, Maintenance, 07/27/20 14:58:00 EDT, Tablet, [facility]/pharmacy #[id number], Partial fill upon patient request [...] Effective Dates Health Status Clinical Service Informant Crack cocaine use Discharge Diagnosis 07/31/20 Depression Discharge Diagnosis 07/31/20 Vital Signs Most recent to oldest [Reference Range]: 1 Height 155 cm (07/31/20 11:00 AM) Weight Obtained Via Patient/family state d (07/31/20 11:00 AM) Social History Social History Type Response Smoking Status 5-9 cigarettes (betw een 1/4 to 1/2 pack)/day in last 30 days; Other: 1/2 PPD since 11 about 24-25 years; entered on: 06/15/20 Sex
--- OUTSIDE RECORDS SUMMARY | 2024-01-06 23:56 | XMS_ITS | Continuity of Care Document ---
[facility] Address [address], 4t [place] [address]- Care Team Providers Care Shore Hand Dredge Or Barge Name Role Phone Verónica Manrique Primary Care Physician [facility] Date[facility] 04[facility]23 - 05/25/23 [facility] [address], 4th [place] [address]- Allergies, Adverse Reactions, Alerts Substance Reaction Severity [...] inj. without complications....CO [facility]# [id number] 2Result Comment: [03/21/2018] given w/out incident [facility]: [phone] 3Result Comment: [02/22/2016] pt. tolerated inj. without [...] 16:54:00 EDT, Aerosol, Route to Pharmacy Electronically, [id number], [facility], 155, cm, [...] Associate Professional Member Role: PCP Address: Address: [address] [place] [address] [place] [address]- Care Team Related Persons Name: TANYA BONILLA Address: home [address] [place] [address] Name: MARTIN GANNON Address: home [address] [place] [address] Name: MARTIN GONZALEZ Address: home [address] [place] [address] Name: JUDE GONZALEZ Address: home [address] [facility] Name: DERICK GONZALEZ Address: home [address] [place] [address] Name: BLAZE HOWARD Address: home [address] [place] [address] Name: BLAZE HOWARD Address: [address] [place] [address] Name: EDELMIRA WORTHINGTON Address: home [address] [place] [address] [address] [place] [address] Name: EDELMIRA VILLALOBOS Address: home [address] [facility] [place] [address] Name: TAYLOR MOCTEZUMA Address: [place] [address] Name: LINN SWANSON
--- OUTSIDE RECORDS SUMMARY | 2024-01-06 23:56 | XMS_ITS | Continuity of Care Document ---
Author Organization [facility] Adult Address [address] [place] [address]- Care Team Providers Care Supervisor Home Restoration Service Name Role Phone Davida Ricardo NP Primary Care Physician [facility] Date[facility]s): 08/14/20 - 09/13/20 [facility] Adult [address] [place] [address]- Allergies, Adverse Reactions, Alerts Substance Reaction Severity [...] Comment: pt. tolerated inj. without complications....CO [facility]# [id number] 2Result Comment: [03/21/2018] given w/out incident [facility]: [phone] 3Result Comment: [02/22/2016] pt. tolerated inj. without complications...CO 4Result Comment: [04/23/2015] given w/out incident 5Admin Note: given w/out incident/VIS given 10/24/2011 6Admin Note: given w/o incident, vis sheet given.mass bio 7Admin Note: [facility] Medications Flonase 50 mcg/inh nasal spray 1 sprays, Nares, Both, Daily, # 16 Gm, 0 Refills, Maintenance, 09/08/20 16:33:00 EDT, [place], [facility]/pharmacy #[id number], Partial fill upon patient request if the prescription is for a schedule II opioid drug., 1 sprays Nares, Both Daily,x30 days, 155, cm, ... Start Date: 09/08/20 Stop Date: 10/08/20 Status: Ordered Medrol 4 mg oral tablet 1 pack/packet, By Mouth, Daily, for 6 days, as directed on package labeling, # 21 tablet, 0 Refills, Acute 09/14/20 16:34:00 EDT, 09/08/20 16:34:00 EDT, Tablet, [facility]/pharmacy #[id number], Partial fill upon patient request if the prescription is for a schedul... Start Date: 09/08/20 Stop Date: 09/14/20 Status: Ordered naproxen sodium 220 mg oral [...] 16:40:30 EDT, Aerosol, Route to Pharmacy Electronically, [id number], [facility]/pharmacy #1972 Start Date: 11/26/18 Stop [...]
--- OUTSIDE RECORDS SUMMARY | 2024-01-06 23:56 | XMS_ITS | Continuity of Care Document ---
Author Organization [facility] Adult Address [address] [place] [address]- Care Team Providers Care Pipe Or Steam Fitter Furnace Installer Name Role Phone Davida Ricardo NP Primary Care Physician [phone] [facility]counter [facility] Date[facility]s): 06/15/21 - 07/15/21 [facility] [address] [place] [address]- Allergies, Adverse Reactions, Alerts Substance Reaction Severity [...] without complications....CO [facility]# [id number] 2Result Comment: [03/21/2018] given w/out incident nd: [id number] 3Result Comment: [02/22/2016] pt. tolerated inj. without complications...CO 4Result Comment: [04/23/2015] given w/out incident 5Admin Note: given w/out incident/VIS given 10/24/2011 6Admin Note: given w/o incident, vis sheet given.mass bio 7Admin Note: [facility] Medications Flonase 50 mcg/inh nasal spray 1 sprays, Nares, Both, Daily, # 16 Gm, 5 Refills, Maintenance, 10/08/20 16:33:00 EDT, [place], [facility]/pharmacy #[id number], Partial fill upon patient request [...] Refills, Maintenance, 09/29/20 14:59:00 EDT, DIS Tablet, [facility]/pharmacy #[id number], Partial fill upon patient request ifthe [...] 12:49:00 EDT, Aerosol, Route to Pharmacy Electronically, [id number], [facility]/pharmacy #1972, 155, cm, 11/10/20 9:00:00 EDT, [place]... Start Date: 01/14/21 Stop Date: 08/12/21 Status: Ordered sertraline 100 mg oral tablet 1.5 tablet, By Mouth, Daily, # 135 tablet, 1 Refills, Maintenance, 11/15/20 14:06:00 EDT, [facility] [id number], 155, cm, 11/10/20 9:00:00 EDT, Height, 71.5, kg, 11/10/20 9:00:00 EDT, Dry Weight Start Date: 11/15/20 Status: Ordered Xyzal 5 mg oral tablet 1 tablet = 5 mg, By Mouth, Daily in PM, # 90 tablet, 0 Refills, Maintenance, 09/08/20 16:33:00 EDT,Tablet, [facility]/pharmacy #[id number], Partial fill upon patient request [...]
--- OUTSIDE RECORDS SUMMARY | 2024-01-06 23:56 | XMS_ITS | Continuity of Care Document ---
Author Organization [facility] Adult Address [address] [place] [address]- Care Team Providers Care Hoop Maker Machine Name Role Phone Davida Ricardo NP Primary Care Physician [facility] Date[facility]s): 12/01/20 - 12/31/20 [facility] Adult [address] [place] [address]- Allergies, Adverse Reactions, Alerts Substance Reaction Severity [...] 1Result Comment: pt. tolerated inj. without complications....[facility]# [id number] 2Result Comment: [03/21/2018] given w/out incident nd: [id number] 3Result Comment: [02/22/2016] pt. tolerated inj. without complications...CO 4Result Comment: [04/23/2015] given w/out incident 5Admin Note: given w/out incident/VIS given 10/24/2011 6Admin Note: given w/o incident, vis sheet given.mass bio 7Admin Note: [facility] Medications Flonase 50 mcg/inh nasal spray 1 sprays, Nares, Both, Daily, # 16 Gm, 5 Refills, Maintenance, 10/08/20 16:33:00 EDT, [place], [facility]/pharmacy #[id number], Partial fill upon patient [...] Refills, Maintenance, 09/29/20 14:59:00 EDT, DIS Tablet, [facility]/pharmacy #[id number], Partial fill upon patient [...] 16:40:30 EDT, Aerosol, Route to Pharmacy Electronically, [id number], [facility]/pharmacy #1972 Start Date: 11/26/18 Stop Date: 06/24/19 Status: Ordered sertraline 100 mg oral tablet 1.5 tablet, By Mouth, Daily, # 135 tablet, 1 Refills, Maintenance, 11/15/20 14:06:00 EDT, [facility] [id number], 155, cm, 11/10/20 9:00:00 EDT, Height, 71.5, kg, 11/10/20 9:00:00 EDT, Dry Weight Start Date: 11/15/20 Status: Ordered Xyzal 5 mg oral tablet 1 tablet = 5 mg, By Mouth, Daily in PM, # 90 tablet, 0 Refills, Maintenance, 09/08/20 16:33:00 EDT,Tablet, [facility]/pharmacy #[id number], Partial fill upon patient [...]
--- OUTSIDE RECORDS SUMMARY | 2024-01-06 23:56 | XMS_ITS | Continuity of Care Document ---
Author Organization [facility] Adult Address [address] [place] [address]- Care Team Providers Care Hi Lo Driver Name Role Phone Davida Ricardo NP Primary Care Physician [facility] Date[facility]s): 07/27/20 - 08/26/20 [facility] Adult [address] [place] [address]- Allergies, Adverse Reactions, Alerts Substance Reaction Severity [...] without complications....CO [facility]# [id number] 2Result Comment: [03/21/2018] given w/out incident [facility]: [phone] 3Result Comment: [02/22/2016] pt. tolerated inj. without [...] 16:40:30 EDT, Aerosol, Route to Pharmacy Electronically, [id number], [facility]/pharmacy #1972 Start Date: 11/26/18 Stop Date: 06/24/19 Status: Ordered sertraline 100 mg oral tablet 1.5 tablet = 150 mg, By Mouth, Daily, # 135 tablet, 0 Refills, Maintenance, 08/10/20 14:56:00 EDT, Tablet, [facility]/pharmacy #[id number], Partial fill upon patient request if the prescription is for a schedule II opioid drug., 155, cm, 08/10/20 12:31:00 EDT, Hei... Start Date: 08/10/20 Stop Date: 11/08/20 Status: Ordered Zofran 4 mg oral tablet 1 tablet = 4 mg, By Mouth, Every 8 hours, # 15 tablet, 0 Refills, Maintenance, 08/24/20 14:56:00 EDT, Tablet, [facility]/pharmacy #[id number], Partial fill upon [...]
--- OUTSIDE RECORDS SUMMARY | 2024-01-06 23:56 | XMS_ITS | Continuity of Care Document ---
[facility] Address [address], [address] [address]- Care Team Providers Care Skein Winding Operator Name Role Phone Ines Woods Primary Care Physician [phone] [facility]counter [facility] Date[facility]s): 11/28/23 - 12/28/23 [facility] [address], 4th [place] [address]- Allergies, Adverse Reactions, Alerts Substance Reaction Severity Status doxycycline sob dizzy Active amoxicillin sob dizzy Active Benadryl hives Active Tamiflu Rash Active Apples itchy throat, rash Active Immunizations Given and Recorded Vaccine Date Status Refusal Reason pneumococcal 20-valent conjugate vaccine 04/10/23 Recorded SARS-CoV-2(COVID-19)mRNA-LNP vac([id number]) 04/10/23 Recorded SARS-CoV-2 (COVID-19) mRNA BNT-162b2 vac [...] inactive(oldterm) 7 03/31/09 Given Pneumococcal Vaccine (oldterm) 2/15/09 Given 1Result Comment: pt. tolerated inj. without complications....CO [facility]# [id number] 2Result Comment: [03/21/2018] given w/out incident [facility]: [phone] 3Result Comment: [02/22/2016] pt. tolerated inj. without [...] Associate Professional Member Role: PCP Address: Address: [address] [place] [address]- Care Team Related Persons Name: TANYA BONILLA Address: home [address] [place] [address] Name: MARTIN GANNON Address: home [address] [place] [address] Name: MARTIN GONZALEZ Address: home [address] [place] [address] Name: JUDE GONZALEZ Address: home [address] [place] Name: DERICK GONZALEZ Address: [address] [place] [address] Name: BLAZE HOWARD Address: home [address] [place] [address] Name: BLAZE HOWARD Address: home [address] [place] [address] Name: EDELMIRA WORTHINGTON Address: home [address] [facility] [address] [place] [address] Name: EDELMIRA VILLALOBOS Address: home [address] [place] [address] Name: TAYLOR MOCTEZUMA Address: [place] [address] Name: LINN SWANSON
--- OUTSIDE RECORDS SUMMARY | 2024-01-06 23:56 | XMS_ITS | Continuity of Care Document ---
Author Organization [facility] Adult Address [address] [place] [address]- Care Team Providers Care Engineering Technical Specialist Name Role Phone Davida Ricardo NP Primary Care Physician [phone] [facility]counter [facility] Date[facility]s): 07/28/20 - 08/27/20 [facility] [address] [place] [address]- Allergies, Adverse Reactions, Alerts Substance Reaction Severity [...] 1Result Comment: pt. tolerated inj. without complications....CO [facility]# [id number] 2Result Comment: [03/21/2018] given w/out incident [facility]: [phone] 3Result Comment: [02/22/2016] pt. tolerated inj. without [...] 16:40:30 EDT, Aerosol, Route to Pharmacy Electronically, [id number], [facility]/pharmacy #1972 Start Date: 11/26/18 Stop Date: 06/24/19 Status: Ordered sertraline 100 mg oral tablet 1.5 tablet = 150 mg, By Mouth, Daily, # 135 tablet, 0 Refills, Maintenance, 08/10/20 14:56:00 EDT, Tablet, [facility]/pharmacy #[id number], Partial fill upon patient request if the prescription is for a schedule II opioid drug., 155, cm, 08/10/20 12:31:00 EDT, Hei... Start Date: 08/10/20 Stop Date: 11/08/20 Status: Ordered Zofran 4 mg oral tablet 1 tablet = 4 mg, By Mouth, Every 8 hours, # 15 tablet, 0 Refills, Maintenance, 08/24/20 14:56:00 EDT, Tablet, [facility]/pharmacy #0084, Partial fill upon patient [...]
--- OUTSIDE RECORDS SUMMARY | 2024-01-06 23:57 | XMS_ITS | Continuity of Care Document ---
Author Organization [facility] Adult Address [address] [place] [address]- Care Team Providers Care Trip Rider Name Role Phone Davida Ricardo NP Primary Care Physician En[facility] Date(s): 07/14/20 - 07/21/20 [facility] [address] [place] [address]- Encounter Diagnosis Diarrhea(Discharge Diagnosis) - 07/14/20 Vomiting(Discharge Diagnosis) - 07/14/20 Loss of taste(Discharge Diagnosis) - 07/14/20 Loss of smell(Discharge Diagnosis) - 07/14/20 Attending Physician: Yohan LIZ, Sky Allergies, Adverse Reactions, Alerts Substance Reaction Severity [...] 1Result Comment: pt. tolerated inj. without complications....CO [facility]# [id number] 2Result Comment: [03/21/2018] given w/out incident [facility]: [phone] 3Result Comment: [02/22/2016] pt. tolerated inj. without [...] 16:40:30 EDT, Aerosol, Route to Pharmacy Electronically, [id number], [facility]/pharmacy #1972 Start Date: 11/26/18 Stop Date: [...] Dates Health Status Cl inical Service Informant Diarrhea Discharge Diagnosis 07/14/20 Vomiting Discharge Diagnosis 07/14/20 Loss of taste Discharge Diagnosis 07/14/20 Loss of smell Discharge Diagnosis 07/14/20 Vital Signs Most recent to oldest [Reference Range]: 1 Height 155 cm (07/14/20 1:41 PM) Social History Social History Type Response Smoking Status 5-9 cigarettes (betw een 1/4 to 1/2 pack)/day in last 30 days; Other: 1/2 PPD since 11 about 24-25 years; entered on: 06/15/20 Sex
--- OUTSIDE RECORDS SUMMARY | 2024-01-06 23:57 | XMS_ITS | Continuity of Care Document ---
Author Organization [facility] Address [address], 4t [place] [address]- Care Team Providers Care Supervisor Joiners Name Role Phone Verónica Manrique Primary Care Physician Encounter [facility] Date(s): 04/03/23 - 05/25/23 [facility] [address], [address]th [place] [address]- Attending Physician: Angeli Torres MD Admitting Physician: Angeli Torres MD Referring Physician: Angeli Torres MD Allergies, Adverse Reactions, Alerts Substance Reaction [...] without complications....CO [facility]# [id number] 2Result Comment: [03/21/2018] given w/out incident [facility]: [phone] 3Result Comment: [02/22/2016] pt. tolerated inj. without [...] 16:54:00 EDT, Aerosol, Route to Pharmacy Electronically, [id number], [facility], 155, cm, [...] Associate Professional Member Role: PCP Address: Address: [address] [place] [address]- Care Team Related Persons Name: TANYA BONILLA Address: home [address] [place] [address] Name: MARTIN GANNON Address: home [address] [place] [address] Name: MARTIN GONZALEZ Address: home [address] [facility] [place] [address] Name: JUDE GONZALEZ Address: home [address] [facility] Name: DERICK GONZALEZ Address: home [address] [place] [address] Name: BLAZE HOWARD Address: home [address] [place] [address] Name: BLAZE HOWARD Address: home [address] [place] [address] Name: EDELMIRA WORTHINGTON Address: [address] [facility] [address] [place] [address] Name: EDELMIRA VILLALOBOS Address: home [address] [place], [place] Name: TAYLOR MOCTEZUMA Address: [place], [place] Name: LINN SWANSON
--- OUTSIDE RECORDS SUMMARY | 2024-01-06 23:57 | XMS_ITS | Continuity of Care Document ---
Author Organization [facility] Adult Address [address] [place] [address]- Care Team Providers Care Land Acquisition Manager Name Role Phone Davida Ricardo NP Primary Care Physician [facility] Date[facility]s): 08/11/20 - 09/10/20 [facility] [address] [place] [address]- Allergies, Adverse Reactions, Alerts Substance Reaction Severity [...] 1Result Comment: pt. tolerated inj. without complications....CO [facility]# [id number] 2Result Comment: [03/21/2018] given w/out incident [facility]: [id number] 3Result Comment: [02/22/2016] pt. tolerated inj. without complications...CO 4Result Comment: [04/23/2015] given w/out incident 5Admin Note: given w/out incident/VIS given 10/24/2011 6Admin Note: given w/o incident, vis sheet given.mass bio 7Admin Note: [facility] Medications Flonase 50 mcg/inh nasal spray 1 sprays, Nares, Both, Daily, # 16 Gm, 0 Refills, Maintenance, 09/08/20 16:33:00 EDT, [place], [facility]/pharmacy #[id number], Partial fill upon [...] 09/14/20 16:34:00 EDT, 09/08/20 16:34:00 EDT, Tablet, [facility]/pharmacy #0084, Partial fill upon [...] 16:40:30 EDT, Aerosol, Route to Pharmacy Electronically, [id number], [facility]/pharmacy #1972 Start Date: 11/26/18 [...]
--- OUTSIDE RECORDS SUMMARY | 2024-01-06 23:57 | XMS_ITS | Continuity of Care Document ---
Author Organization [facility] Adult Address [address] [place] [address]- Care Team Providers Care Semiconductor Processing Group Leader Name Role Phone Verónica Manrique Primary Care Physician Encounter [facility] Date(s): 02/09/22 - 03/11/22 [facility] [address] [place] [address]- Allergies, Adverse Reactions, Alerts Substance Reaction Severity [...] without complications....CO [facility]# [id number] 2Result Comment: [03/21/2018] given w/out incident nd: [id number] 3Result Comment: [02/22/2016] pt. tolerated inj. without [...] 16:54:00 EDT, Aeros[place], Route to Pharmacy Electronically, [id number], [facility], 155, cm, [...] Care Team Personnel Name: Verónica Manrique Position: [facility] Associate Professional Member Role: PCP Address: Address: [address] [place] [address]- Care Team Related Persons Name: TANYA BONILLA Address: home [address] [place] [address] Name: MARTIN GANNON Address: home [address] [place] [address] Name: MARTIN GONZALEZ Address: home [address] [place] [address] Name: JUDE GONZALEZ Address: home [address] [facility] Name: DERICK GONZALEZ Address: [address] [place] [address] Name: BLAZE HOWARD Address: home [address] [place] [address] Name: BLAZE HOWARD Address: home [address] [place] [address] Name: EDELMIRA WORTHINGTON Address: [address] [address] Name: EDELMIRA VILLALOBOS Name: TAYLOR MOCTEZUMA Address: [place] [address] Name: LINN SWANSON
--- OUTSIDE RECORDS SUMMARY | 2024-01-06 23:57 | XMS_ITS | Continuity of Care Document ---
Author Organization [facility] Adult Address [address] [place] [address]- Care Team Providers Care L Tacker Name Role Phone Not on Staff, PCP Primary Care Physician Unavail able [facility] Date[facility]s): 01/18/22 - 02/17/22 [facility] [address] [place] [address]- Allergies, Adverse Reactions, Alerts Substance Reaction Severity [...] 1Result Comment: pt. tolerated inj. without complications....CO [facility]# [id number] 2Result Comment: [03/21/2018] given w/out incident [facility]: [id number] 3Result Comment: [02/22/2016] pt. tolerated inj. without [...] 16:54:00 EDT, Aerosol, Route to Pharmacy Electronically, [id number], [facility], 155, cm, [...]
--- OUTSIDE RECORDS SUMMARY | 2024-01-06 23:57 | XMS_ITS | Continuity of Care Document ---
Author Organization [facility] Adult Address [address] [place] [address]- Care Team Providers Care Dentofacial Orthopedics Dentist Name Role Phone Davion FRY, Davida Primary Care Physician Encounter [facility] Date(s): 09/14/21 - 09/21/21 [facility] [address] [place] [address]- Attending Physician: Dorita Rosenthal NP Allergies, Adverse Reactions, Alerts Substance Reaction [...] inj. without complications....CO [facility]# [id number] 2Result Comment: [03/21/2018] given w/out incident [facility]: [phone] 3Result Comment: [02/22/2016] pt. tolerated inj. without complications...CO 4Result Comment: [04/23/2015] given w/out incident 5Admin Note: given w/out incident/VIS given 10/24/2011 6Admin Note: given w/o incident, vis sheet given.mass bio 7Admin Note: [facility] Medications ProAir HFA 90 mcg/inh inhalation aerosol with adapter 2, puffs, Inhalation, Every 4 hours, PRN, # 1 each, Refills 6, Tot. Refills 6, Maintenance, 01/14/21 12:49:00 EDT, Aerosol, Route to Pharmacy Electronically, [id number], [facility], 155, cm, 11/10/20 9:00:00 EDT, [place]... Start Date: 01/14/21 Stop Date: 08/12/21 Status: Ordered Problem List Condition Effective Dates [...] recent to oldest [Reference Range]: 1 Height 152.5 cm (09/14/21 8:07 AM) Weight 63.63 kg (09/14/21 8:07 AM) Body Mass Index [18.5-24.99] 27.36 *H* (09/14/21 8:07 AM) Weight Obtained Via Standing scale (09/14/21 8:07 AM) Social History Social History Type Response Smoking Status 5-9 cigarettes (betw een 1/4 to 1/2 pack)/day in last 30 days; Other: 1/2 PPD since 11 about 24-25 years; entered on: 06/15/20 Sex
--- OUTSIDE RECORDS SUMMARY | 2024-01-06 23:57 | XMS_ITS | Continuity of Care Document ---
Author Organization [facility] Adult Address [address] [place] [address]- Care Team Providers Care Bicycle Messenger Name Role Phone Davida Ricardo NP Primary Care Physician [facility] Date[facility]): 06[facility]24/20 - 07/24/20 [facility] Adult [address] [place] [address]- Attending Physician: Davida Ricardo NP Allergies, Adverse [...] Comment: pt. tolerated inj. without complications....[facility]# [id number] 2Result Comment: [03/21/2018] given w/out incident [facility]: [phone] 3Result Comment: [02/22/2016] pt. tolerated inj. without [...] 16:40:30 EDT, Aerosol, Route to Pharmacy Electronically, [id number], [facility] Start Date: 11/26/18 Stop Date: [...]
--- OUTSIDE RECORDS SUMMARY | 2024-01-06 23:57 | XMS_ITS | Continuity of Care Document ---
Author Organization [facility] Adult Address [address] [place] [address]- Care Team Providers Care Social Work Lecturer Name Role Phone Davida Ricardo NP Primary Care Physician [facility] Date(s): 09/25/20 - 10/25/20 [facility] Adult [address] [place] [address]- Allergies, Adverse Reactions, Alerts Substance Reaction Severity [...] Comment: pt. tolerated inj. without complications....[facility]# [id number] 2Result Comment: [03/21/2018] given w/out incident [facility]: [phone] 3Result Comment: [02/22/2016] pt. tolerated inj. without complications...[facility] 4Result Comment: [04/23/2015] given w/out incident 5Admin Note: given w/out incident/VIS given 10/24/2011 6Admin Note: given w/o incident, vis sheet given.mass bio 7Admin Note: [facility] Medications Flonase 50 mcg/inh nasal spray 1 sprays, Nares, Both, Daily, # 16 Gm, 5 Refills, Maintenance, 10/08/20 16:33:00 EDT, [place], [facility]/pharmacy #[id number], Partial fill upon patient request [...] Maintenance, 09/29/20 14:59:00 EDT, DIS Tablet, [facility]/pharmacy #[id number], Partial fill upon patient request [...] 16:40:30 EDT, Aerosol, Route to Pharmacy Electronically, [id number], [facility]/pharmacy #1972 Start Date: 11/26/18 Stop Date: 06/24/19 Status: Ordered sertraline 100 mg oral tablet 1.5 tablet = 150 mg, By Mouth, Daily, # 135 tablet, 0 Refills, Maintenance, 08/10/20 14:56:00 EDT, Tablet, [facility]/pharmacy #[id number], Partial fill upon patient request if the prescription is for a schedule II opioid drug., 155, cm, 08/10/20 12:31:00 EDT, [place]i... Start Date: 08/10/20 Stop Date: 11/08/20 Status: Ordered Xyzal 5 mg oral tablet 1 tablet = 5 mg, By Mouth, Daily in PM, # 90 tablet, 0 Refills, Maintenance, 09/08/20 16:33:00 EDT,Tablet, [facility]/pharmacy #[id number], Partial fill upon patient request [...]
--- OUTSIDE RECORDS SUMMARY | 2024-01-06 23:57 | XMS_ITS | Continuity of Care Document ---
Author Organization [facility] Adult Address [address] [place] [address]- Care Team Providers Care Boat Oar Maker Name Role Phone Nabor Burt MD Primary Care Physician [facility] Date[facility]s): 05/05/20 - 06/04/20 [facility] Adult [address] [place] [address]- Allergies, Adverse Reactions, Alerts Substance Reaction Severity [...] 1Result Comment: pt. tolerated inj. without complications....[facility]# [id number] 2Result Comment: [03/21/2018] given w/out incident nd: [id number] 3Result Comment: [02/22/2016] pt. tolerated inj. without [...] 01/21/19 6:58:02 EDT, Route to Pharmacy Electronically, [id number], [facility] Start Date: 01/21/19 Status: Ordered [...] 16:40:30 EDT, Aerosol, Route to Pharmacy Electronically, [id number], [facility] Start Date: 11/26/18 Stop Date: [...]
--- OUTSIDE RECORDS SUMMARY | 2024-01-06 23:57 | XMS_ITS | Continuity of Care Document ---
Author Organization [facility] Adult Address [address] [place] [address]- Care Team Providers Care Dry Wall Installations Mechanic Name Role Phone Davida Ricardo NP Primary Care Physician [phone] [facility] Date[facility]s): 08/28/20 - 09/27/20 [facility] Adult [address] [place] [address]- Allergies, Adverse Reactions, Alerts Substance Reaction Severity [...] [facility]# [id number] 2Result Comment: [03/21/2018] given w/out incident [facility]: [id number] 3Result Comment: [02/22/2016] pt. tolerated inj. without complications...[facility] 4Result Comment: [04/23/2015] given w/out incident 5Admin Note: given w/out incident/VIS given 10/24/2011 6Admin Note: given w/o incident, vis sheet given.mass bio 7Admin Note: [facility] Flonase 50 mcg/inh nasal spray 1 sprays, Nares, Both, Daily, # 16 Gm, 0 Refills, Maintenance, 09/08/20 16:33:00 EDT, [place], [facility]/pharmacy #[id number], Partial fill upon patient request [...] 16:40:30 EDT, Aerosol, Route to Pharmacy Electronically, [id number], [facility]/pharmacy #1972 Start Date: 11/26/18 Stop Date: 06/24/19 Status: Ordered sertraline 100 mg oral tablet 1.5 tablet = 150 mg, By Mouth, Daily, # 135 tablet, 0 Refills, Maintenance, 08/10/20 14:56:00 EDT, Tablet, [facility]/pharmacy #[id number], Partial fill upon patient request [...]
--- OUTSIDE RECORDS SUMMARY | 2024-01-06 23:57 | XMS_ITS | Continuity of Care Document ---
Author Organization [facility] Adult Address [address] [place] [address]- Care Team Providers Care Operating Room Aide Name Role Phone Davida Ricardo NP Primary Care Physician [facility]): 12/07/21 - 01/06/22 [facility] Adult [address] [place] [address]- Allergies, Adverse Reactions, Alerts Substance Reaction Severity [...] pt. tolerated inj. without complications....[facility]# [id number] 2Result Comment: [03/21/2018] given w/out incident nd: [id number] 3Result Comment: [02/22/2016] pt. tolerated inj. without [...] Team Personnel Name: Davida Ricardo NP Address: [address] [place] [address]
--- OUTSIDE RECORDS SUMMARY | 2024-01-06 23:57 | XMS_ITS | Continuity of Care Document ---
Author Organization [facility] Adult Address [address] [place] [address]- Care Team Providers Care Head Butler Name Role Phone Davida Ricardo NP Primary Care Physician Encounter [facility] Date(s): 12/14/20 - 01/13/21 [facility] Adult [address] [place] [address]- Attending Physician: Vikram Worthington Admitting Physician: AdmVikram [...] Comment: pt. tolerated inj. without complications....[facility]# [id number] 2Result Comment: [03/21/2018] given w/out incident ndc: [id number] 3Result Comment: [02/22/2016] pt. tolerated inj. without complications...[facility] 4Result Comment: [04/23/2015] given w/out incident 5Admin Note: given w/out incident/VIS given 10/24/2011 6Admin Note: given w/o incident, vis sheet given.mass bio 7Admin Note: [facility] Medications Flonase 50 mcg/inh nasal spray 1 sprays, Nares, Both, Daily, # 16 Gm, 5 Refills, Maintenance, 10/08/20 16:33:00 EDT, [place], [facility]/pharmacy #[id number], Partial fill upon patient request if [...] Refills, Maintenance, 09/29/20 14:59:00 EDT, DIS Tablet, [facility]/pharmacy #[id number], Partial fill upon patient request ifthe [...] 16:40:30 EDT, Aerosol, Route to Pharmacy Electronically, [id number], [facility]/pharmacy #1972 Start Date: 11/26/18 Stop Date: 06/24/19 Status: Ordered sertraline 100 mg oral tablet 1.5 tablet, By Mouth, Daily, # 135 tablet, 1 Refills, Maintenance, 11/15/20 14:06:00 EDT, [facility] [id number], 155, cm, 11/10/20 9:00:00 EDT, Height, 71.5, [...]
--- OUTSIDE RECORDS SUMMARY | 2024-01-06 23:57 | XMS_ITS | Continuity of Care Document ---
Author Organization [facility] Adult Address [address] [place] [address]- Care Team Providers Care Corporate Sales Manager Name Role Phone Davida Ricardo NP Primary Care Physician [phone] [facility] Date(s): 01/01/21 - 01/31/21 [facility] Adult [address] [place] [address]- Allergies, Adverse Reactions, Alerts Substance Reaction Severity [...] tolerated inj. without complications....[facility]# [id number] 2Result Comment: [03/21/2018] given w/out incident nd: [id number] 3Result Comment: [02/22/2016] pt. tolerated inj. without complications...[facility] 4Result Comment: [04/23/2015] given w/out incident 5Admin Note: given w/out incident/VIS given 10/24/2011 6Admin Note: given w/o incident, vis sheet given.mass bio 7Admin Note: [facility] Medications Flonase 50 mcg/inh nasal spray 1 sprays, Nares, Both, Daily, # 16 Gm, 5 Refills, Maintenance, 10/08/20 16:33:00 EDT, [place], [facility]/pharmacy #0084, Partial fill upon patient request if [...] Maintenance, 09/29/20 14:59:00 EDT, DIS Tablet, [facility]/pharmacy #0084, Partial fill upon patient request ifthe [...] 12:49:00 EDT, Aerosol, Route to Pharmacy Electronically, [id number], [facility]/pharmacy #1972, 155, cm, 11/10/20 9:00:00 EDT, [place]... Start Date: 01/14/21 Stop Date: 08/12/21 Status: Ordered sertraline 100 mg oral tablet 1.5 tablet, By Mouth, Daily, # 135 tablet, 1 Refills, Maintenance, 11/15/20 14:06:00 EDT, [facility] [id number], 155, cm, 11/10/20 9:00:00 EDT, Height, 71.5, kg, 11/10/20 9:00:00 EDT, Dry Weight Start Date: 11/15/20 Status: Ordered Xyzal 5 mg oral tablet 1 tablet = 5 mg, By Mouth, Daily in PM, # 90 tablet, 0 Refills, Maintenance, 09/08/20 16:33:00 EDT,Tablet, [facility]/pharmacy #0084, Partial fill upon patient request if [...]
--- OUTSIDE RECORDS SUMMARY | 2024-01-06 23:57 | XMS_ITS | Continuity of Care Document ---
Author [facility] Address [address], [address], [place] [address]- Care Team Providers Care Cold Storage Superintendent Name Role Phone Nabor Burt MD Primary Care Physician Encounter [facility] [place] Date(s): 03/24/20 - 04/23/20 [facility] [address] [place], [place] [address] Attending Physician: Vikram Worthington Admitting Physician: AdmVikram [...] 1Result Comment: pt. tolerated inj. without complications....[facility]# [id number] 2Result Comment: [03/21/2018] given w/out incident ndc: [id number] 3Result Comment: [02/22/2016] pt. tolerated inj. without [...] 01/21/19 6:58:02 EDT, Route to Pharmacy Electronically, [id number], [facility] Start Date: 01/21/19 Status: Ordered [...] 16:40:30 EDT, Aerosol, Route to Pharmacy Electronically, [id number], [facility] Start Date: 11/26/18 Stop Date: [...]
--- OUTSIDE RECORDS SUMMARY | 2024-01-06 23:57 | XMS_ITS | Continuity of Care Document ---
Author Organization [facility] Adult Address [address] [place] [address]- Care Team Providers Care Logistic Manager Name Role Phone Davida Ricardo NP Primary Care Physician [facility] Date(s): 01/14/21 - 02/13/21 [facility] Adult [address] [place] [address]- Allergies, Adverse Reactions, Alerts Substance Reaction Severity [...] without complications....[facility]# [id number] 2Result Comment: [03/21/2018] given w/out incident nd: [id number] 3Result Comment: [02/22/2016] pt. tolerated inj. without complications...[facility] 4Result Comment: [04/23/2015] given w/out incident 5Admin Note: given w/out incident/VIS given 10/24/2011 6Admin Note: given w/o incident, vis sheet given.mass bio 7Admin Note: [facility] Medications Flonase 50 mcg/inh nasal spray 1 sprays, Nares, Both, Daily, # 16 Gm, 5 Refills, Maintenance, 10/08/20 16:33:00 EDT, [place], [facility]/pharmacy #[id number], Partial fill upon patient [...] Refills, Maintenance, 09/29/20 14:59:00 EDT, DIS Tablet, [facility]/pharmacy #[id number], Partial fill upon patient [...] 12:49:00 EDT, Aerosol, Route to Pharmacy Electronically, [id number], [facility]/pharmacy #1972, 155, cm, 11/10/20 9:00:00 EDT, [place]... Start Date: 01/14/21 Stop Date: 08/12/21 Status: Ordered sertraline 100 mg oral tablet 1.5 tablet, By Mouth, Daily, # 135 tablet, 1 Refills, Maintenance, 11/15/20 14:06:00 EDT, [facility] [id number], 155, cm, 11/10/20 9:00:00 EDT, Height, 71.5, kg, 11/10/20 9:00:00 EDT, Dry Weight Start Date: 11/15/20 Status: Ordered Xyzal 5 mg oral tablet 1 tablet = 5 mg, By Mouth, Daily in PM, # 90 tablet, 0 Refills, Maintenance, 09/08/20 16:33:00 EDT,[place], [facility]/pharmacy #[id number], Partial fill upon patient [...]
--- OUTSIDE RECORDS SUMMARY | 2024-01-06 23:57 | XMS_ITS | Continuity of Care Document ---
Author Organization [facility] Adult Address [address] [place] [address]- Care Team Providers Care Reweaver Name Role Phone Davida Ricardo NP Primary Care Physician [facility] Date[facility]s): 09/30/21 - 10/30/21 [facility] Adult [address] [place] [address]- Attending Physician: Admtr, Mickey8 Admitting Physician: Admtr, [id number] Referring Physician: Admtr, [...] 1Result Comment: pt. tolerated inj. without complications....[facility]# [id number] 2Result Comment: [03/21/2018] given w/out incident [facility]: [phone] 3Result Comment: [02/22/2016] pt. tolerated inj. without [...]
--- OUTSIDE RECORDS SUMMARY | 2024-01-06 23:57 | XMS_ITS | Continuity of Care Document ---
Author Organization [facility] Address [address] [place] [address]- Care Team Providers Care Configuration Release Manager Name Role Phone Davida Ricardo NP Primary Care Physician [place] [facility] [place] 08/07/20 - 08/14/20 [facility] [address] [place] [address]- Encounter Diagnosis Viral syndrome(Discharge Diagnosis) - 08/07/20 Attending Physician: Km Hanson MD Admitting Physician: Km Hanson MD Allergies, Adverse Reactions, Alerts Substance Reaction [...] Comment: pt. tolerated inj. without complications....[facility] [place]# [id number] 2Result Comment: [03/21/2018] given w/out incident ndc: [id number] 3Result Comment: [02/22/2016] pt. tolerated inj. without [...] 16:40:30 EDT, Aeros[place], Route to Pharmacy Electronically, [id number], [facility]/pharmacy #1972 Start Date: [...] Health Status Cl inical Service Informant Viral syndrome Discharge Diagnosis 08/07/20 Social History Social History Type Response Smoking Status 5-9 cigarettes (betw een 1/4 to 1/2 pack)/day in last 30 days; Other: 1/2 PPD since 11 about 24-25 years; entered on: 06/15/20 Sex
--- OUTSIDE RECORDS SUMMARY | 2024-01-06 23:57 | XMS_ITS | Continuity of Care Document ---
[facility] Address [address], [address] [place] [address]- Care Team Providers Care Screen Printer Name Role Phone Ines Woods Primary Care Physician [facility] Date[facility]s): 11/28/23 - 12/28/23 [facility] [address], [address]th [place] [address]- Allergies, Adverse Reactions, Alerts Substance Reaction Severity Status doxycycline sob dizzy Active amoxicillin sob dizzy Active Benadryl hives Active Tamiflu Rash Active Apples itchy throat, rash Active Immunizations Given and Recorded Vaccine Date Status Refusal Reason pneumococcal 20-valent conjugate vaccine 04/10/23 Recorded SARS-CoV-2(COVID-19)mRNA-LNP vac([id number]) 04/10/23 Recorded SARS-CoV-2 (COVID-19) mRNA BNT-162b2 vac [...] 1Result Comment: pt. tolerated inj. without complications....[facility]# [id number] 2Result Comment: [03/21/2018] given w/out incident [facility]: [id number] 3Result Comment: [02/22/2016] pt. tolerated inj. without [...] Associate Professional Member Role: PCP Address: Address: [address] [place] [address]- Care Team Related Persons Name: TANYA BONILLA Address: home [address] [place] [address] Name: MARTIN GANNON Address: [address] [place] [address] Name: MARTIN GONZALEZ Address: [address] [place] [address] Name: JUDE GONZALEZ Address: [address] Name: DERICK GONZALEZ Address: [address] [place] [address] Name: BLAZE HOWARD Address: [address] [place] [address] Name: BLAZE HOWARD Address: [address] [place] [address] Name: EDELMIRA WORTHINGTON Address: [address] [place] [address] Name: EDELMIRA VILLALOBOS Address: home [address] [place] [address] Name: TAYLOR MOCTEZUMA Address: [place] [address] Name: LINN SWANSON
--- OUTSIDE RECORDS SUMMARY | 2024-01-06 23:57 | XMS_ITS | Continuity of Care Document ---
Author Organization [facility] Address [address] [place] [address], [address] [place] [address]- Care Team Providers Care Cream Ripener Name Role Phone Nabor Burt MD Primary Care Physician Encounter [facility] Date(s): 02/20/20 - 02/27/20 [facility] [address] [place], [place] [address] Attending Physician: Zen Rodriguez MD Referring Physician: Not on Staff, Referring [...] without complications....[facility]# [id number] 2Result Comment: [03/21/2018] given w/out incident nd: [id number] 3Result Comment: [02/22/2016] pt. tolerated inj. without [...] 01/21/19 6:58:02 EDT, Route to Pharmacy Electronically, [id number], [facility] Start Date: 01/21/19 Status: Ordered [...] 16:40:30 EDT, [place], Route to Pharmacy Electronically, [id number], [facility] Start Date: 11/26/18 Stop Date: [...] oldest [Reference Range]: 1 Height 159.4 cm (02/20/20 3:28 PM) Weight 73.1 kg (02/20/20 3:28 PM) Body Mass Index [18.5-24.99] 28.77 *H* (02/20/20 3:28 PM) Blood Pressure [90-138/55-84 mm Hg] 129/ 74mm Hg (02/20/20 3:28 PM) Blood pressure sites Arm, left (02/20/20 3:28 PM) Dry Weight 73.1 kg (02/20/20 3:28 PM) Weight Obtained Via Standing scale (02/20/20 3:28 PM) Dry Weight Obtained Via Standing scale (02/20/20 3:28 PM) Social History Social History Type Response Smoking Status Current every day dimitris spaulding; Tobacco user in household: No; Type: Cigarettes; Other: 1/2 pack daily; Stopped at age: 30; entered on: 10/02/17 Sex
--- OUTSIDE RECORDS SUMMARY | 2024-01-06 23:57 | XMS_ITS | Continuity of Care Document ---
Author Organization [facility] Adult Address [address] [place] [address]- Care Team Providers Care Measurement And Verification Engineer Name Role Phone Davida Ricardo NP Primary Care Physician [phone] Encounter [facility] Date(s): 12/07/21 - 01/30/22 [facility] Adult [address] [place] [address]- Attending Physician: Sky Almanzar MD Allergies, Adverse [...] Comment: pt. tolerated inj. without complications....[facility]# [id number] 2Result Comment: [03/21/2018] given w/out incident [facility]: [id number] 3Result Comment: [02/22/2016] pt. tolerated inj. without [...] 16:54:00 EDT, [place], Route to Pharmacy Electronically, [id number], [facility], 155, cm, [...] Personnel Name: Davida Ricardo NP Address: Address: [address] [place] [id number]
[2024-01-07] VITALS: BP 107/61; PULSE 91; RESP 16; TEMP 36.6; O2SAT 98
[2024-01-07 00:16] LABS: MANUAL DIFF FLAG NO
[2024-01-07 00:52] LABS: Basophils Absolute Auto 0.1 X10*3/uL (0.0-0.2); Basophils Percent Auto 0.7 % (0-2); Eosinophils Absolute Auto 0.3 X10*3/uL (0.0-0.4); Eosinophils Percent Auto 2.9 % (0-4); Hematocrit 37.7 % (37.0-47.0); Hemoglobin 12.4 g/dl (12.0-16.0); Imm Gran Abs Auto 0.05 X10*3/uL (0.00-0.03); Imm Gran Pct Auto 0.6 % (0.0-0.4); Lymphocytes Absolute Auto 2.9 X10*3/uL (1.2-4.9); Lymphocytes Percent Auto 32.7 % (20-40); Mean Corpuscular HGB Conc 32.9 g/dl (31.0-35.0); Mean Corpuscular Volume 97.4 fL (80.0-98.0); Mean Platelet Volume 11.5 fL (9.4-12.3); Monocytes Absolute Auto 0.6 X10*3/uL (0.1-1.2); Monocytes Percent Auto 6.4 % (2-11); Neutrophils Absolute Auto 5.1 x10*3/uL (2.0-8.3); Neutrophils Percent Auto 56.7 % (45-73); Platelet Count 213 X10*3/uL (160-400); Red Blood Count 3.87 X10*6/uL (4.20-5.50); Red Cell Distribution Width 13.8 % (11.0-16.0); White Blood Count 8.9 X10*3/uL (4.8-10.8)
[2024-01-07] MEDS: Ketorolac Tromethamine 30 MG/ML VIAL IVPUSH (01:53)
[2024-01-07 02:00] VITALS: BP 104/68; PULSE 79; RESP 18; TEMP 36.6; O2SAT 98
[2024-01-07 02:40] VITALS: BP 104/68; PULSE 79; RESP 18; TEMP 36.6; O2SAT 98
== END 2024-01-07 02:47 | disposition home or self-care (01) ==
PROVIDERS: Nurse Practitioner Family; Physician Assistant; Emergency Provider Emergency Medicine Emergency Medical Services
DX: N92.0 Excessive and frequent menstruation with regular cycle (principal); R10.2 Pelvic and perineal pain; Z90.711 Acquired absence of uterus with remaining cervical stump
CPT/HCPCS: 36415; 74177; 76830; 76856; 80053; 81003; 83690; 84702; 85025; 93975; 96374; 99284; 99285; J1885; Q9967

== ENCOUNTER 2024-01-11 09:40 | Emergency (ER) | payer MEDICARE, MEDICAID, SELFPAY ==
--- NOTE | ~2024-01-11 | MR_ITS ---
EXAMINATION: MRI PELVIS WITH AND WITHOUT CONTRAST CLINICAL INFORMATION: LLQ pain, abnormal bleeding, abnormal CT scan US COMPARISON: CT abdomen and pelvis 01/06/2024 TECHNIQUE: Multiple routine MRI sequences through the pelvis were obtained before and after the uneventful administration of 7 mL of Gadavist gadolinium-based IV contrast. FINDINGS: UTERUS: Status post hysterectomy. Unremarkable appearance of the vaginal cuff however the vagina is decompressed limiting evaluation, consider correlation with gynecologic exam. Mild wall thickening and hyperenhancement involving the rectosigmoid colon which may reflect a mild proctocolitis in the appropriate clinical setting. OVARIES: Unremarkable. KIDNEYS AND VISUALIZED UPPER ABDOMEN: Two normally positioned kidneys are seen. No hydronephrosis. VISUALIZED GI TRACT: Mild wall thickening and hyperenhancement involving the rectosigmoid colon which may reflect a mild proctocolitis in the appropriate clinical setting. BLADDER: Unremarkable. PELVIC FREE FLUID: No free fluid or ascites. LYMPH NODES: No pathologically enlarged lymph nodes. OSSEOUS STRUCTURES: Degenerative disc disease at L5-S1. SOFT TISSUES: Unremarkable. MR/MR pelvis wo/w con IMPRESSION: 1. Status post hysterectomy. Unremarkable appearance of the vaginal cuff however the vagina is decompressed limiting evaluation, consider correlation with gynecologic exam. 2. Mild wall thickening and hyperenhancement involving the rectosigmoid colon which may reflect a mild proctocolitis in the appropriate clinical setting. Electronically signed by: Sulema Irby MD 01/11/2024 05:10 PM EDT
[2024-01-11 09:49] VITALS: BP 112/73; PULSE 84; RESP 16; TEMP 37; O2SAT 98; BMI 29.1
[2024-01-11 10:15] LABS: MANUAL DIFF FLAG NO
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
--- OUTSIDE RECORDS SUMMARY | 2024-01-11 10:18 | XMS_ITS | Continuity of Care Document ---
Author Organization [employer] [facility] Address [address] [place] [address]- Care Team Providers Care Skate Shop Attendant Name Role Phone Ines Woods Primary Care Physician [place] [facility] [place]11[place]23 - 01/10/24 [facility] [address] [place] [address]- Allergies, Adverse Reactions, Alerts Substance Reaction Severity Status doxycycline sob dizzy Active amoxicillin sob dizzy Active Benadryl hives Active Apples itchy throat, rash Active Tamiflu Rash Active Immunizations Given and Recorded Vaccine Date Status Refusal Reason pneumococcal 20-valent conjugate vaccine 04/10/23 Recorded SARS-CoV-2(COVID-19)mRNA-LNP vac([id number]) 04/10/23 Recorded SARS-CoV-2 (COVID-19) mRNA BNT-162b2 vac [...] 1Result Comment: pt. tolerated inj. without complications....[facility]# [id number] 2Result Comment: [03/21/2018] given w/out incident [facility]: [id number] 3Result Comment: [02/22/2016] pt. tolerated inj. without [...] Associate Professional Member Role: PCP Address: Address: [address] [place] [address]- Care Team Related Persons Name: TANYA BONILLA Address: home [address] [place] [address] Name: MARTIN GANNON Address: [address] [place] [address] Name: MARTIN GONZALEZ Address: home [address] [place] [address] Name: JUDE GONZALEZ Address: [address] Name: DERICK GONZALEZ Address: [address] [place] [address] Name: BLAZE HOWARD Address: [address] [place] [address] Name: BLAZE HOWARD Address: [address] [place] [address] Name: EDELMIRA WORTHINGTON Address: [address] [address] Name: EDELMIRA VILLALOBOS Address: [address] [place] [address] Name: TAYLOR MOCTEZUMA Address: [address] [place] [address] Name: LINN SWANSON
[2024-01-11 10:20] LABS: Basophils Absolute Auto 0.1 X10*3/uL (0.0-0.2); Basophils Percent Auto 0.8 % (0-2); Eosinophils Absolute Auto 0.2 X10*3/uL (0.0-0.4); Eosinophils Percent Auto 3.2 % (0-4); Hematocrit 41.5 % (37.0-47.0); Imm Gran Abs Auto 0.03 X10*3/uL (0.00-0.03); Imm Gran Pct Auto 0.4 % (0.0-0.4); Lymphocytes Absolute Auto 1.6 X10*3/uL (1.2-4.9); Lymphocytes Percent Auto 21.1 % (20-40); Mean Corpuscular HGB Conc 33.7 g/dl (31.0-35.0); Mean Corpuscular Hemoglobin 32.3 pg (27.0-33.0); Mean Corpuscular Volume 95.6 fL (80.0-98.0); Mean Platelet Volume 10.4 fL (9.4-12.3); Monocytes Absolute Auto 0.5 X10*3/uL (0.1-1.2); Monocytes Percent Auto 6.9 % (2-11); Neutrophils Absolute Auto 5.1 x10*3/uL (2.0-8.3); Neutrophils Percent Auto 67.6 % (45-73); Platelet Count 259 X10*3/uL (160-400); Red Blood Count 4.34 X10*6/uL (4.20-5.50); Red Cell Distribution Width 13.9 % (11.0-16.0); White Blood Count 7.6 X10*3/uL (4.8-10.8)
[2024-01-11 10:36] LABS: Alanine Aminotransferase 18 U/L (0-31); Albumin Level 4.2 g/dL (3.5-5.0); Alkaline Phosphatase 74 U/L (39-117); Anion Gap 8 (12-20); Aspartate Amino Transferase 13 U/L (5-31); Bilirubin Total 0.3 mg/dL (0.0-1.0); Blood Urea Nitrogen 9 mg/dL (9-16); C Reactive Protein 0.14 mg/dL (< or = 0.50); Calcium 9.3 mg/dL (8.4-10.2); Carbon Dioxide 29 mmol/L (22-29); Chloride 108 mmol/L (96-108); Creatinine Clr Calc Pharmacy 97.2; Estimated Glomerular Filt Rate > 60; Glucose Random 122 mg/dL (60-115); Lipase 64 U/L (8-78); Potassium 4.2 mmol/L (3.3-5.1); Sodium 141 mmol/L (135-145)
[2024-01-11 10:52] LABS: Amphetamine Screen Urine Not Detected (Not Detect); Barbiturates, Urine Not Detected (Not Detect); Benzodiazepines Screen Urine Not Detected (Not Detect); Buprenorphine Scr Not Detected (Not Detect); Cannabinoid Screen Urine Not Detected (Not Detect); Cocaine Screen Urine Not Detected (Not Detect); Fentanyl, urine Not Detected (Not Detect); Methadone Screen, Urine Not Detected (Not Detect); Opiate Screen Urine Not Detected (Not Detect); Oxycodone Screen Urine Not Detected (Not Detect); Phencyclidine Screen Urine Not Detected (Not Detect)
[2024-01-11 10:57] LABS: Appearance Urine Clear; Color Urine Yellow; Glucose Urine UA Negative (Negative); Leukocyte Esterase Urine Negative (Negative); Nitrite Urine Negative (Negative); Specific Gravity - Urine 1.025 (1.005-1.025); UPreg QC Valid YES; Urine Blood Negative (Negative); Urine Ketones Negative (Negative); Urine Pregnancy NEGATIVE (NEGATIVE); Urine Protein Negative (Neg-Trace)
[2024-01-11] MEDS: ondansetron HCL 4 MG/2 ML VIAL IVPUSH (11:15)
[2024-01-11] MEDS: Morphine Sulfate 4 MG/ML CARTRIDGE IVPUSH (11:15)
--- NOTE | 2024-01-11 11:15 | ED.ABDPAIN ---
HPI - Abdominal Pain General Chief Complaint: Abdominal Pain Stated Complaint: [id number]-blstr-[id number] Time Seen by Provider: 01/11/24 10:03 Source: patient, family and old records reviewed Mode of arrival: ambulatory Limitations: no limitations History of Present Illness ED Provider: MADDISON GROSS narrative: 38 yo female with PMH of partial hysterectomy 10 years ago - complicated by bladder injury with resultant 1 week lynch and bladder mash. Had bladder mash revised by katie Torres MD recently. She has been having LLQ pain and vaginal bleeding with spotting to more since November she has had 3 OBGYN exams by OBs where they see blood on qtip but then referred her to GI. GI has not done a colonoscopy in 3 years last time it was normal done for IBS. She notes she was just here on 01/05 had US showing no L ovary and no flow seen. CT scan showing thickening of vaginal cuff. The day after she went to [facility] where they did normal rectal exam no blood and pelvic exam that again had blood on qtip but told her everything seemed fine. She comes in again as she cannot take the LLQ pain and was vomiting bile this AM. Has chills at times and low grade temp. Does not report a family hx of cancer MD elicited complaint: abdominal pain Onset (ago): month(s) (2+) Pain Consistency: intermittent Location: LLQ Severity: severe Quality: stabbing Radiation: none Migration to: no migration Exacerbating factors: movement Relieving factors: nothing Context: history of similar episodes Associated symptoms: nausea, vomiting and other (vaginal bleeding) Related Data Previous Rx's ?Medication ?Instructions ?Recorded cyclobenzaprine 10 mg tablet 10 mg PO TID PRN muscle spasm #20 09/07/22 tabs ibuprofen 800 mg tablet 800 mg PO TID #30 tabs 09/07/22 oxycodone 5 mg tablet 5 mg PO Q6H PRN pain #20 tabs 01/07/24 Allergies Allergy/AdvReac Type Severity Reaction Status Date / Time amoxicillin [AMOXICILLIN] Allergy Unknown RASH Verified 01/11/24 09:58 diphenhydramine Allergy Unknown HIVES Verified 01/11/24 09:58 [From BENADRYL] doxycycline [DOXYCYCLINE] Allergy Unknown SHORTNESS Verified 01/11/24 09:58 OF BREATH Review of Systems Review of Systems Constitutional : No Weight loss, No Fever, No Chills ENT/Mouth : No sore throat, No Rhinorrhea Eyes: No Swelling, No Redness Cardiovascular : No Chest Pain, No SOB, NoEdema Respiratory : No Cough, No Sputum, No Wheezing Gastrointestinal : Positive Nausea, Positive Vomiting, no Diarrhea, positive abdominal Pain, No Hematochezia, No Melena Genitourinary : No Dysuria, No Urinary Frequency, No Hematuria, No Urgency , pos vag bleeding Musculoskeletal : No joint pain, No Myalgias, No Joint Swelling Skin : No Skin Lesions, No rash Neuro : No Weakness, No Numbness, No Dizziness, No Headache Psych : No Anxiety/Panic, No Depression Heme/Lymph: No Bruising, No Lymphadenopathy Endocrine : No Polyuria, No Polydipsia All other systems reviewed and are negative. [facility] Past Medical History Attestation statement: The following information was validated with the patient. Source: old records reviewed Medical History GERD (gastroesophageal reflux disease) Surgical History H/O tubal ligation S/P partial hysterectomy Social History Social History Unable to assess alcohol history related to: Unable to respond Alcohol intake: never Smoked in Last 30 Days: Yes Use of substances other than those prescribed or required for medical reasons: No Advance Directives: No Advance Directives Information Provided: No Do you have a plan to hurt others: No Plan Patient : No Physical Exam ED Vital Signs: Vital Signs - 24 hr 01/11/24 09:49 01/11/24 13:30 Temperature 98.6 F Pulse Rate 84 79 Respiratory Rate 16 16 Blood Pressure 112/73 104/65 Pulse Oximetry 98 97 Oxygen Delivery Method Room Air Room Air BMI result Body Mass Index 29.1 Appearance: Alert. Oriented X3. No acute distress. Eyes: Pupils equal, round and reactive to light. ENT: Pharynx normal. Neck: Normal inspection. Neck supple. CVS: Normal heart rate and rhythm. Pulses normal. Respiratory: No respiratory distress. Breath sounds normal. Abdomen: Soft and moderate LLQ pain with vol guarding Skin: Skin warm and dry. Normal skin color. Normal skin turgor. Extremities: No lower extremity edema. No calf ttp Neuro: Oriented X 3. No motor deficit. No sensory deficit. Course Course Course Narrative: signed out to Dr. Young pending MRI Medical Decision Making Medical Decision Making [facility] Narrative: 38 yo female with PMH of prior hysterectomy and bladder mesh with revision due to mesh eroding has UroGyn and GI doctor at [facility] with prolonged course of abdominal pain, intermittent vaginal bleeding with US and CT scans done without focal findings other than thickening of vaginal cuff. She has had 3+ internal exams by OBGYN most recently Monday that she notes are reported as no significant findings. At this time given complaint labs, IV morphine for pain and MRI ordered given recent images and abnormality. Differential Diagnosis Differential Diagnoses: The differential diagnosis associated with the presentation includes mass, ovarian pathology, colitis, diverticulitis Admission/Observation Consideration of admission/observation: Escalation of care including admission/observation considered Lab Data [facility] Lab Attestation statement: I reviewed the patient's lab results. 01/11/24 10:06 01/11/24 10:06 Labs: Lab Results 01/11/24 01/11/24 01/11/24 Range/Units 10:06 10:33 10:41 WBC 7.6 (4.8-10.8) X10*3/uL RBC 4.34 (4.20-5.50) X10*6/uL Hgb 14.0 (12.0-16.0) g/dl Hct 41.5 (37.0-47.0) % MCV 95.6 (80.0-98.0) fL MCH 32.3 (27.0-33.0) pg MCHC 33.7 (31.0-35.0) g/dl RDW 13.9 (11.0-16.0) % Plt Count 259 (160-400) X10*3/uL MPV 10.4 (9.4-12.3) fL Immature Gran % (Auto) 0.4 (0.0-0.4) % Neut % (Auto) 67.6 (45-73) % Lymph % (Auto) 21.1 (20-40) % Ballard % (Auto) 6.9 (2-11) % Eos % (Auto) 3.2 (0-4) % Baso % (Auto) 0.8 (0-2) % Lymph # (Auto) 1.6 (1.2-4.9) X10*3/uL Ballard # (Auto) 0.5 (0.1-1.2) X10*3/uL Eos # (Auto) 0.2 (0.0-0.4) X10*3/uL Baso # (Auto) 0.1 (0.0-0.2) X10*3/uL Abs Immat Gran (auto) 0.03 (0.00-0.03) X10*3/uL Absolute Neuts (auto) 5.1 (2.0-8.3) x10*3/uL Absolute Nucleated RBC 0.000 (0.0-0.012) X10*3/uL Nucleated RBC % (auto) 0.0 (0.0-0.2) /100WBC Sodium 141 (135-145) mmol/L Potassium 4.2 (3.3-5.1) mmol/L Chloride 108 (96-108) mmol/L Carbon Dioxide 29 (22-29) mmol/L Anion Gap 8 L (12-20) BUN 9 (9-16) mg/dL Creatinine 0.66 (0.5-1.4) mg/dL Estim Creat Clear Calc 97.2 Estimated GFR > 60 Random Glucose 122 H (60-115) mg/dL Calcium 9.3 (8.4-10.2) mg/dL Total Bilirubin 0.3 (0.0-1.0) mg/dL AST 13 (5-31) U/L ALT 18 (0-31) U/L Alkaline Phosphatase 74 (39-117) U/L C-Reactive Protein 0.14 (< or = 0.50) mg/dL Total Protein 7.0 (6.5-8.0) g/dL Albumin 4.2 (3.5-5.0) g/dL Lipase 64 (8-78) U/L Urine Color Yellow Urine Appearance Clear Urine pH 7.0 (5.0-9.0) Ur Specific Henriette 1.025 (1.005-1.025) Urine Protein Negative (Neg-Trace) mg/dL Urine Glucose (UA) Negative (Negative) mg/dL Urine Ketones Negative (Negative) mg/dL Urine Blood Negative (Negative) Urine Nitrite Negative (Negative) Ur Leukocyte Esterase Negative (Negative) Urine Test NEGATIVE (NEGATIVE) Urine Opiates Screen Not Detected (Not Detect) Ur Buprenorphine Scrn Not Detected (Not Detect) ng/mL Ur Oxycodone Screen Not Detected (Not Detect) ng/mL Urine Methadone Screen Not Detected (Not Detect) ng/mL Urine Fentanyl Screen Not Detected (Not Detect) Ur Barbiturates Screen Not Detected (Not Detect) Ur Phencyclidine Scrn Not Detected (Not Detect) Ur Amphetamines Screen Not Detected (Not Detect) U Benzodiazepines Scrn Not Detected (Not Detect) Urine Cocaine Screen Not Detected (Not Detect) U Marijuana (THC) Screen Not Detected (Not Detect) Independent Interpretation I performed an independent interpretation of an: CT Scan (MRI) Radiology Impression Discussion of test interpretation with radiology: I have reviewed the radiologist's reading. Independent Historian Clinical information obtained from an independent historian. History obtained from or confirmed by: Friend External Record Review External record reviewed: Inpatient record and Outpatient record Medications Administered Discontinued Medications Generic Name Dose Route Start Last Admin Trade Name Freq PRN Reason Stop Dose Admin Gadobutrol 7.5 ml 01/11/24 13:09 01/11/24 13:09 Gadobutrol 7.5 Ml Vial IVPUSH 01/11/24 13:10 6.5 ml ONCE ONE Administration Hydromorphone HCl 1 mg 01/11/24 14:02 01/11/24 14:33 Hydromorphone Hcl 1 Mg/Ml Syringe IVPUSH 01/11/24 14:03 1 mg ONCE ONE Administration Protocol Morphine Sulfate 4 mg 01/11/24 10:57 01/11/24 11:15 Morphine Sulfate 4 Mg/Ml Cartridge IVPUSH 01/11/24 10:58 4 mg ONCE ONE Administration Protocol Ondansetron HCl 4 mg 01/11/24 10:57 01/11/24 11:15 Ondansetron Hcl 4 Mg/2 Ml Vial IVPUSH 01/11/24 10:58 4 mg ONCE ONE Administration Critical Care Time Critical Care Time Critical Care Time: Yes Total Critical Care Time: 35 Attestation: repeat IV morphine for pain, improvement of pain, review of records I attest to this time spent taking care of the patient Discharge Plan Discharge Clinical Impression: Abdominal pain Patient Disposition: Still a Patient Prescriptions: No Action oxycodone 5 mg tablet 5 mg PO Q6H PRN (Reason: pain) Qty: 20 0RF Rx Instructions: Partial Fill upon patient request. ibuprofen 800 mg tablet 800 mg PO TID Qty: 30 0RF cyclobenzaprine 10 mg tablet 10 mg PO TID PRN (Reason: muscle spasm) Qty: 20 0RF Print Language: Nicaraguan
--- NOTE | 2024-01-11 11:25 | PC.NURSE ---
mri form faxed
--- NOTE | 2024-01-11 12:10 | PC.NURSE ---
pt taken to MRI
[2024-01-11] MEDS: gadobutroL 7.5 ML VIAL IVPUSH (13:09)
--- NOTE | 2024-01-11 13:10 | PC.NURSE ---
pt returned from MRI, pt stating her pain has not changed and continues to be 01/31 provider is aware per patient as provider checked in with her a few minutes ago, call lopez within reach, will continue to monitor
[2024-01-11 13:30] VITALS: BP 104/65; PULSE 79; RESP 16; O2SAT 97
[2024-01-11] MEDS: HYDROmorphone HCl 1 MG/ML SYRINGE IVPUSH (14:33)
--- NOTE | 2024-01-11 14:38 | PC.NURSE ---
pt medicated for 10/10 pain per order
[2024-01-11 16:23] VITALS: BP 107/62; PULSE 79; RESP 17; TEMP 37; O2SAT 97
[2024-01-11] MEDS: Ketorolac Tromethamine 30 MG/ML VIAL IVPUSH (16:40)
[2024-01-11] MEDS: oxyCODONE HCl Immed Release 5 MG TABLET PO (18:43)
--- NOTE | 2024-01-11 18:45 | PC.NURSE ---
internal performed by provider and tech, pt medicated prior to discharge.
[2024-01-11 18:46] VITALS: BP 107/62; PULSE 79; RESP 17; TEMP 37; O2SAT 97
[2024-01-12 12:10] LABS: CT PCR NOT DETECTED (Not Detect.); NG PCR NOT DETECTED (Not Detect.)
[2024-01-12 14:20] LABS: Bacterial Vaginosis PCR NEGATIVE (Negative); Candida Group PCR DETECTED (Not Detect); Candida glab krusei PCR DETECTED (Not Detect); Trichomonas vaginalis PCR NOT DETECTED (Not Detect)
== END 2024-01-11 18:47 | disposition home or self-care (01) ==
PROVIDERS: Emergency Medicine; Emergency Provider Emergency Medicine
DX: R10.32 Left lower quadrant pain (principal); R11.2 Nausea with vomiting, unspecified; Z03.818 Encounter for observation for suspected exposure to other biological agents ruled out; Z90.711 Acquired absence of uterus with remaining cervical stump; Z79.899 Other long term (current) drug therapy
CPT/HCPCS: 0352U; 36415; 72197; 80053; 80307; 81003; 81025; 83690; 85025; 86140; 87491; 87591; 96374; 96375; 99284; 99285; A9585; J1170; J1885; J2270; J2405

== ENCOUNTER 2024-01-17 17:30 | Emergency (ER) | payer MEDICARE, MEDICAID, SELFPAY ==
--- NOTE | ~2024-01-17 | US_ITS ---
EXAMINATION: US PELVIS CLINICAL INFORMATION: Pain with abnormal vaginal bleeding and question of ovarian torsion COMPARISON: Pelvic MRI 01/11/2024, CT abdomen and pelvis 01/06/2024, ultrasound pelvis 01/06/2024 TECHNIQUE: Ultrasound of the pelvis is performed using both transabdominal and transvaginal transducers along with Doppler. Transvaginal imaging is performed due to inadequate visualization transabdominally. FINDINGS: Uterus: The uterus was not seen, status post hysterectomy. Adnexa: Both ovaries are visualized. There is normal color flow to the adnexa. There is no ovarian torsion. There is no pelvic ascites or fluid collection. Right ovary measures 3.6 x 1.6 x 2.2 cm for a volume of 6.6 mL Left ovary measures 2.1 x 2.3 x 1.9 cm for a volume of 4.8 mL US/US pelvic ovarian doppler IMPRESSION: No evidence of ovarian torsion. Electronically signed by: Raymond Pak MD 01/18/2024 12:20 AM EDT
--- NOTE | ~2024-01-17 | US_ITS ---
EXAMINATION: US PELVIS CLINICAL INFORMATION: Pain with abnormal vaginal bleeding and question of ovarian torsion COMPARISON: Pelvic MRI 01/11/2024, CT abdomen and pelvis 01/06/2024, ultrasound pelvis 01/06/2024 TECHNIQUE: Ultrasound of the pelvis is performed using both transabdominal and transvaginal transducers along with Doppler. Transvaginal imaging is performed due to inadequate visualization transabdominally. FINDINGS: Uterus: The uterus was not seen, status post hysterectomy. Adnexa: Both ovaries are visualized. There is normal color flow to the adnexa. There is no ovarian torsion. There is no pelvic ascites or fluid collection. Right ovary measures 3.6 x 1.6 x 2.2 cm for a volume of 6.6 mL Left ovary measures 2.1 x 2.3 x 1.9 cm for a volume of 4.8 mL US/US pelvic and transvaginal IMPRESSION: No evidence of ovarian torsion. Electronically signed by: Raymond Pak MD 01/18/2024 12:20 AM EDT
[2024-01-17 18:06] VITALS: BP 123/84; PULSE 97; RESP 19; TEMP 36.6; O2SAT 98; BMI 29.3
--- NOTE | 2024-01-17 18:06 | ED_ITS ---
HPI - Abdominal Pain General Chief Complaint: Abdominal Pain Stated Complaint: Low back/pelvic pain Time Seen by Provider: 01/17/24 22:04 Source: patient Limitations: no limitations History of Present Illness ED Provider: Brea Haji PA-C HPI narrative: 38 y/o F with hx of partial hysterectomy 10 years ago - complicated by bladder injury, c/o continued vaginal spotting, abdominal pain, Related Data Previous Rx's ?Medication ?Instructions ?Recorded cyclobenzaprine 10 mg tablet 10 mg PO TID PRN muscle spasm #20 09/07/22 tabs ibuprofen 800 mg tablet 800 mg PO TID #30 tabs 09/07/22 oxycodone 5 mg tablet 5 mg PO Q6H PRN pain #20 tabs 01/07/24 oxycodone 5 mg tablet 5 mg PO BID PRN pain #4 tabs 01/11/24 baclofen 15 mg tablet 15 mg PO QID 7 days #28 tabs 01/18/24 Allergies Allergy/AdvReac Type Severity Reaction Status Date / Time amoxicillin [AMOXICILLIN] Allergy Unknown RASH Verified 01/17/24 18:08 diphenhydramine Allergy Unknown HIVES Verified 01/17/24 18:08 [From BENADRYL] doxycycline [DOXYCYCLINE] Allergy Unknown SHORTNESS Verified 01/17/24 18:08 OF BREATH PMFSH Past Medical History Medical History GERD (gastroesophageal reflux disease) Surgical History H/O tubal ligation S/P partial hysterectomy Social History Social History Unable to assess alcohol history related to: Unable to respond Alcohol intake: never Smoked in Last 30 Days: Yes Use of substances other than those prescribed or required for medical reasons: No Advance Directives: No Advance Directives Information Provided: No Do you have a plan to hurt others: No Plan Patient : No Physical Exam ED Vital Signs: Vital Signs - 24 hr 01/17/24 18:06 01/17/24 21:18 01/17/24 23:11 Temperature 98 F 98.3 F 97.9 F Pulse Rate 97 94 98 Respiratory Rate 19 16 16 Blood Pressure 123/84 126/85 133/86 Pulse Oximetry 98 98 100 Oxygen Delivery Method Room Air Room Air BMI result Body Mass Index 29.3 Course Course Course Narrative: This is a Rapid Medical Exam performed in triage by Bernarda Sher PA-C. Full HPI, ROS and PE to be performed by primary ED provider. 38 yo female with PMH of GERD, partial hysterectomy 10 years ago - complicated by bladder injury, c/o continued vaginal spotting, abdominal pain, N/V, nonbloody diarrhea x weeks. Has been seen by multiple providers including ECONOMICS ANALYST & in our ED on 01/11/24 had Pelvis MRI which showed no obvious abnormality. Pain worse w/movement. denies chills PE: abdomen soft w/lower ttp, no rebound or guarding. Plan: Labs, UA Medical Decision Making Medical Decision Making MDM Narrative: TVUS: FINDINGS: Uterus: The uterus was not seen, status post hysterectomy. Adnexa: Both ovaries are visualized. There is normal color flow to the adnexa. There is no ovarian torsion. There is no pelvic ascites or fluid collection. Right ovary measures 3.6 x 1.6 x 2.2 cm for a volume of 6.6 mL Left ovary measures 2.1 x 2.3 x 1.9 cm for a volume of 4.8 mL US/US pelvic and transvaginal IMPRESSION: No evidence of ovarian torsion. Electronically signed by: Raymond Pak MD 01/18/2024 12:20 AM EDT RP prior studies pelvic MRI: COMPARISON: CT abdomen and pelvis 01/06/2024 TECHNIQUE: Multiple routine MRI sequences through the pelvis were obtained before and after the uneventful administration of 7 mL of Gadavist gadolinium-based IV contrast. FINDINGS: UTERUS: Status post hysterectomy. Unremarkable appearance of the vaginal cuff however the vagina is decompressed limiting evaluation, consider correlation with gynecologic exam. Mild wall thickening and hyperenhancement involving the rectosigmoid colon which may reflect a mild proctocolitis in the appropriate clinical setting. OVARIES: Unremarkable. KIDNEYS AND VISUALIZED UPPER ABDOMEN: Two normally positioned kidneys are seen. No hydronephrosis. VISUALIZED GI TRACT: Mild wall thickening and hyperenhancement involving the rectosigmoid colon which may reflect a mild proctocolitis in the appropriate clinical setting. BLADDER: Unremarkable. PELVIC FREE FLUID: No free fluid or ascites. LYMPH NODES: No pathologically enlarged lymph nodes. OSSEOUS STRUCTURES: Degenerative disc disease at L5-S1. SOFT TISSUES: Unremarkable. MR/MR pelvis wo/w con IMPRESSION: 1. Status post hysterectomy. Unremarkable appearance of the vaginal cuff however the vagina is decompressed limiting evaluation, consider correlation with gynecologic exam. 2. Mild wall thickening and hyperenhancement involving the rectosigmoid colon which may reflect a mild proctocolitis in the appropriate clinical setting. Electronically signed by: Sulema Irby MD 01/11/2024 05:10 PM EDT RP Lab Data 01/17/24 18:33 01/17/24 18:33 Labs: Lab Results 01/17/24 01/17/24 Range/Units 18:33 20:47 WBC 7.4 (4.8-10.8) X10*3/uL RBC 4.33 (4.20-5.50) X10*6/uL Hgb 13.9 (12.0-16.0) g/dl Hct 41.6 (37.0-47.0) % MCV 96.1 (80.0-98.0) fL MCH 32.1 (27.0-33.0) pg MCHC 33.4 (31.0-35.0) g/dl RDW 13.8 (11.0-16.0) % Plt Count 247 (160-400) X10*3/uL MPV 10.3 (9.4-12.3) fL Immature Gran % (Auto) 0.3 (0.0-0.4) % Neut % (Auto) 60.5 (45-73) % Lymph % (Auto) 27.7 (20-40) % [place] % (Auto) 6.8 (2-11) % Eos % (Auto) 3.6 (0-4) % Baso % (Auto) 1.1 (0-2) % Lymph # (Auto) 2.1 (1.2-4.9) X10*3/uL [place] # (Auto) 0.5 (0.1-1.2) X10*3/uL Eos # (Auto) 0.3 (0.0-0.4) X10*3/uL Baso # (Auto) 0.1 (0.0-0.2) X10*3/uL Abs Immat Gran (auto) 0.02 (0.00-0.03) X10*3/uL Absolute Neuts (auto) 4.5 (2.0-8.3) x10*3/uL Absolute Nucleated RBC 0.000 (0.0-0.012) X10*3/uL Nucleated RBC % (auto) 0.0 (0.0-0.2) /100WBC PT 10.8 L (10.9-12.4) SEC INR 0.9 (0.9-1.1) Sodium 141 (135-145) mmol/L Potassium 4.0 (3.3-5.1) mmol/L Chloride 105 (96-108) mmol/L Carbon Dioxide 29 (22-29) mmol/L Anion Gap 11 L (12-20) BUN 9 (9-16) mg/dL Creatinine 0.73 (0.5-1.4) mg/dL Estim Creat Clear Calc 88.1 Estimated GFR > 60 Random Glucose 102 (60-115) mg/dL Calcium 10.0 D (8.4-10.2) mg/dL Magnesium 2.0 (1.6-2.6) mg/dL Total Bilirubin 0.2 (0.0-1.0) mg/dL Direct Bilirubin < 0.2 (0.0-0.5) mg/dL AST 15 (5-31) U/L ALT 21 (0-31) U/L Alkaline Phosphatase 85 (39-117) U/L Total Protein 7.4 (6.5-8.0) g/dL Albumin 4.3 (3.5-5.0) g/dL Lipase 26 (8-78) U/L Urine Color Yellow Urine Appearance Clear Urine pH 6.5 (5.0-9.0) Ur Specific Mullin 1.025 (1.005-1.025) Urine Protein Negative (Neg-Trace) mg/dL Urine Glucose (UA) Negative (Negative) mg/dL Urine Ketones Trace (Negative) mg/dL Urine Blood Negative (Negative) Urine Nitrite Negative (Negative) Ur Leukocyte Esterase Trace H (Negative) Urine RBC 0-2 (0-2) /HPF Urine WBC 6-10 H (0-5) /HPF Ur Squamous Epith Cells 6-10 (0-2) /HPF Urine Bacteria 1+ (None Seen) Hyaline Casts 0-2 (0-2) /LPF Urine Test NEGATIVE (NEGATIVE) Medications Administered Discontinued Medications Generic Name Dose Route Start Last Admin Trade Name Freq PRN Reason Stop Dose Admin Ketorolac Tromethamine 15 mg 01/17/24 22:14 01/17/24 23:07 Ketorolac Tromethamine 15 Mg/Ml Vial IM 01/17/24 22:15 15 mg ONCE ONE Administration Methocarbamol 750 mg 01/17/24 22:14 01/17/24 23:07 Methocarbamol 750 Mg Tablet PO 01/17/24 22:15 750 mg ONCE ONE Administration Discharge Plan Discharge Clinical Impression: Abnormal vaginal bleeding, Pelvic pain Patient Disposition: Home, Self-Care Instructions: Pelvic Pain (ED) Additional Instructions: No changes were noted on the pelvic ultrasound. You need to follow up with both your uro tool rental technician and regular tool rental technician for further assessment. You may require a specialized study/exam, that they will perform themselves. All of your labs were normal today as well. I will call today to make an appointment. Use the baclofenl as needed for your pain, to know it will cause drowsiness, do not drive or operate machinery while taking the medication. Prescriptions: New baclofen 15 mg tablet 15 mg PO QID 7 Days Qty: 28 0RF No Action oxycodone 5 mg tablet 5 mg PO Q6H PRN (Reason: pain) Qty: 20 0RF Rx Instructions: Partial Fill upon patient request. oxycodone 5 mg tablet 5 mg PO BID PRN (Reason: pain) Qty: 4 0RF Rx Instructions: Partial Fill upon patient request. ibuprofen 800 mg tablet 800 mg PO TID Qty: 30 0RF cyclobenzaprine 10 mg tablet 10 mg PO TID PRN (Reason: muscle spasm) Qty: 20 0RF Print Language: Serbian
[2024-01-17 18:38] LABS: MANUAL DIFF FLAG NO
[2024-01-17 18:43] LABS: Basophils Absolute Auto 0.1 X10*3/uL (0.0-0.2); Basophils Percent Auto 1.1 % (0-2); Eosinophils Absolute Auto 0.3 X10*3/uL (0.0-0.4); Eosinophils Percent Auto 3.6 % (0-4); Hematocrit 41.6 % (37.0-47.0); Hemoglobin 13.9 g/dl (12.0-16.0); Imm Gran Abs Auto 0.02 X10*3/uL (0.00-0.03); Imm Gran Pct Auto 0.3 % (0.0-0.4); Lymphocytes Absolute Auto 2.1 X10*3/uL (1.2-4.9); Lymphocytes Percent Auto 27.7 % (20-40); Mean Corpuscular HGB Conc 33.4 g/dl (31.0-35.0); Mean Corpuscular Hemoglobin 32.1 pg (27.0-33.0); Mean Corpuscular Volume 96.1 fL (80.0-98.0); Mean Platelet Volume 10.3 fL (9.4-12.3); Monocytes Absolute Auto 0.5 X10*3/uL (0.1-1.2); Monocytes Percent Auto 6.8 % (2-11); Neutrophils Absolute Auto 4.5 x10*3/uL (2.0-8.3); Neutrophils Percent Auto 60.5 % (45-73); Platelet Count 247 X10*3/uL (160-400); Red Blood Count 4.33 X10*6/uL (4.20-5.50); Red Cell Distribution Width 13.8 % (11.0-16.0); White Blood Count 7.4 X10*3/uL (4.8-10.8)
[2024-01-17 18:50] LABS: INTERNATIONAL NORM RATIO 0.9 (0.9-1.1); Prothrombin Time 10.8 SEC (10.9-12.4)
[2024-01-17 18:58] LABS: Alanine Aminotransferase 21 U/L (0-31); Albumin Level 4.3 g/dL (3.5-5.0); Alkaline Phosphatase 85 U/L (39-117); Anion Gap 11 (12-20); Aspartate Amino Transferase 15 U/L (5-31); Bilirubin Direct < 0.2 mg/dL (0.0-0.5); Bilirubin Total 0.2 mg/dL (0.0-1.0); Blood Urea Nitrogen 9 mg/dL (9-16); Carbon Dioxide 29 mmol/L (22-29); Chloride 105 mmol/L (96-108); Creatinine Clr Calc Pharmacy 88.1; Estimated Glomerular Filt Rate > 60; Glucose Random 102 mg/dL (60-115); Lipase 26 U/L (8-78); Sodium 141 mmol/L (135-145); Total Protein 7.4 g/dL (6.5-8.0)
--- NOTE | 2024-01-17 20:43 | MHC.EDTECH ---
Patient brought into triage area,UACC obtained and sent to lab.
[2024-01-17 20:58] LABS: Appearance Urine Clear; Color Urine Yellow; Glucose Urine UA Negative (Negative); Leukocyte Esterase Urine Trace (Negative); Nitrite Urine Negative (Negative); PH 6.5 (5.0-9.0); Specific Gravity - Urine 1.025 (1.005-1.025); UMIC TRIGGER UACC YES; UPreg QC Valid YES; Urine Blood Negative (Negative); Urine Ketones Trace mg/dL (Negative); Urine Pregnancy NEGATIVE (NEGATIVE); Urine Protein Negative (Neg-Trace)
[2024-01-17 21:01] LABS: Bacteria Urine 1+ (None Seen); Hyaline Casts Urine 0-2 /LPF (0-2); RBC Urine 0-2 /HPF (0-2); UACC Culture Trigger YES
[2024-01-17 21:18] VITALS: BP 126/85; PULSE 94; RESP 16; TEMP 36.8; O2SAT 98
[2024-01-17] MEDS: Ketorolac Tromethamine 15 MG/ML VIAL IM (23:07)
[2024-01-17] MEDS: methocarbamoL 750 MG TABLET PO (23:07)
[2024-01-17 23:11] VITALS: BP 133/86; PULSE 98; RESP 16; TEMP 36.6; O2SAT 100
--- NOTE | 2024-01-17 23:25 | PC.NURSE ---
pt medicated per provider order. effectiveness pending. US pending at this time.
[2024-01-18] MEDS: methocarbamoL 750 MG TABLET PO (00:50)
[2024-01-18 00:55] VITALS: BP 136/89; PULSE 98; RESP 16; TEMP 36.8; O2SAT 98
== END 2024-01-18 00:56 | disposition home or self-care (01) ==
PROVIDERS: Physician Assistant; Emergency Provider Emergency Medicine
DX: N93.8 Other specified abnormal uterine and vaginal bleeding (principal); R10.2 Pelvic and perineal pain; Z90.711 Acquired absence of uterus with remaining cervical stump
CPT/HCPCS: 36415; 76830; 76856; 80048; 80076; 81001; 81003; 81025; 83690; 83735; 85025; 85610; 87086; 93975; 96372; 99284; J1885

== ENCOUNTER 2024-01-27 20:35 | Emergency (ER) | payer MEDICARE, MEDICAID, SELFPAY ==
--- NOTE | ~2024-01-27 | XR_ITS ---
EXAMINATION: XR CHEST CLINICAL INFORMATION: Recent pneumonia COMPARISON: None available. TECHNIQUE: 2 views of the chest were obtained. FINDINGS: No significant abnormality is noted involving the heart, lungs, mediastinum, bony thorax or soft tissues. XR/XR chest 2V IMPRESSION: Unremarkable examination. Electronically signed by: Rupert Chacon MD 01/27/2024 10:13 PM EDT RP
[2024-01-27 20:45] VITALS: BP 127/89; PULSE 87; RESP 16; TEMP 36.6; O2SAT 99; BMI 29.3
[2024-01-27 21:12] LABS: MANUAL DIFF FLAG NO
[2024-01-27 21:15] LABS: Basophils Absolute Auto 0.1 X10*3/uL (0.0-0.2); Basophils Percent Auto 0.8 % (0-2); Eosinophils Absolute Auto 0.4 X10*3/uL (0.0-0.4); Eosinophils Percent Auto 3.5 % (0-4); Hematocrit 40.9 % (37.0-47.0); Hemoglobin 13.9 g/dl (12.0-16.0); Imm Gran Pct Auto 0.9 % (0.0-0.4); Lymphocytes Absolute Auto 2.8 X10*3/uL (1.2-4.9); Lymphocytes Percent Auto 25.1 % (20-40); Mean Corpuscular Hemoglobin 32.5 pg (27.0-33.0); Mean Corpuscular Volume 95.6 fL (80.0-98.0); Mean Platelet Volume 9.9 fL (9.4-12.3); Monocytes Absolute Auto 0.8 X10*3/uL (0.1-1.2); Monocytes Percent Auto 6.9 % (2-11); Neutrophils Absolute Auto 7.1 x10*3/uL (2.0-8.3); Neutrophils Percent Auto 62.8 % (45-73); Platelet Count 295 X10*3/uL (160-400); Red Blood Count 4.28 X10*6/uL (4.20-5.50); Red Cell Distribution Width 13.4 % (11.0-16.0); White Blood Count 11.2 X10*3/uL (4.8-10.8)
--- NOTE | 2024-01-27 21:19 | ED_ITS ---
HPI - General Adult General Chief complaint: Headache Stated complaint: migraine past 2hours Time Seen by Provider: 01/27/24 23:34 Source: patient and other (Boyfriend, Eleuterio) Mode of arrival: ambulatory Limitations: no limitations History of Present Illness ED Provider: Dr. William Ruth HPI narrative: 38-year-old female with a history of migraine syndrome who presents emergency department for evaluation of cough and headache. The patient states she has had a nonproductive cough for proximally 1-1/2 weeks. She states she tested negative for COVID. On 01/23/2024, the patient went to an urgent care clinic and was diagnosed with pneumonia. She was started on prednisone and Zithromax. She states that her cough is slightly improved but is still present. She also has tightness in the center of her chest which is worse with coughing. She denied fever but was experiencing chills. The patient also is complaining of a migraine headache. She states she gets these frequently and she was had a headache on and off for 2 days. States that the headache started today at 19:00 hours and has been constant. She points to her temporal area and states the pain radiates from the temporal areas to the back of her head. She states she had nausea but no vomiting. She denied numbness, weakness, lightheadedness, dizziness or tingling this. Patient states that she took Tylenol with no relief of her headache. She states that she has had to go to [facility] multiple times in the past for IV treatment of her migraine headaches. The patient has been seen here in the emergency department on 01/05, 01/10, 01/17/2024 for left lower quadrant abdominal pain. Patient has received prescriptions for oxycodone and in reviewing the [place] prescription monitoring program profile the patient is on Suboxone. Related Data Previous Rx's ?Medication ?Instructions ?Recorded cyclobenzaprine 10 mg tablet 10 mg PO TID PRN muscle spasm #20 09/07/22 tabs ibuprofen 800 mg tablet 800 mg PO TID #30 tabs 09/07/22 oxycodone 5 mg tablet 5 mg PO Q6H PRN pain #20 tabs 01/07/24 oxycodone 5 mg tablet 5 mg PO BID PRN pain #4 tabs 01/11/24 baclofen 15 mg tablet 15 mg PO QID 7 days #28 tabs 01/18/24 Allergies Allergy/AdvReac Type Severity Reaction Status Date / Time amoxicillin [AMOXICILLIN] Allergy Unknown RASH Verified 01/27/24 20:46 diphenhydramine Allergy Unknown HIVES Verified 01/27/24 20:46 [From BENADRYL] doxycycline [DOXYCYCLINE] Allergy Unknown SHORTNESS Verified 01/27/24 20:46 OF BREATH oseltamivir [From Tamiflu] Allergy Rash Verified 01/27/24 20:46 Review of Systems 2 Review of Systems: Yes all other systems are reviewed and are negative [facility] Past Medical History [facility] Narrative: Social history: She does smoke cigarettes. She denies alcohol use. She was here in the emergency department with her boyfriend, Eleuterio. Medical History GERD (gastroesophageal reflux disease) Surgical History H/O tubal ligation S/P partial hysterectomy Social History Social History Unable to assess alcohol history related to: Unable to respond Alcohol intake: never Advance Directives: No Advance Directives Information Provided: No Do you have a plan to hurt others: No Plan Physical Exam ED Vital Signs: Vital Signs - 24 hr 01/27/24 20:45 01/28/24 02:24 Temperature 97.9 F Pulse Rate 87 Respiratory Rate 16 14 Blood Pressure 127/89 Pulse Oximetry 99 Oxygen Delivery Method Room Air BMI result Body Mass Index 29.3 Vital signs were normal Exam: General: Awake, alert in no distress Head: Normocephalic, atraumatic EENT: PERRL, Lids normal, sclera normal, conjunctiva normal, nose normal , ears normal, throat without erythema or exudates Neck: Supple, no adenopathy Lung: breath sounds symmetric, no wheezing, rales or rhonchi Chest: symmetric movement, nontender Heart: regular rate and rhythm, normal S1, S2 no murmurs or rubs Abdomen: soft, non-tender, nondistended, normal bowel sounds Back: no vertebral tenderness, no CVAT Extremities: no deformities, moves all extremities symmetrically Neuro: Awake, alert, oriented, normal speech, cranial nerves intact, moves all extremities symmetrically Psych: Pleasant, cooperative Course Course Course Narrative: RME performed by Miley Torres PA-C. Patient is a 38 year old assigned female at presenting to the emergency department with a headache. Patient states over the last few days she has had a headache off and on. Detailed physical exam and review of systems are deferred to the [employer]. Labs ordered. Patient placed back in the waiting room pending room availability and results. Medications Administered Discontinued Medications Generic Name Dose Route Start Last Admin Trade Name Ting PRN Reason Stop Dose Admin Hydromorphone HCl 1 mg 01/28/24 02:01 01/28/24 02:24 Hydromorphone Hcl 1 Mg/Ml Syringe IVPUSH 01/28/24 02:02 1 mg ONCE STA Administration Protocol Sodium Chloride 1,000 mls @ 999 mls/hr 01/27/24 23:50 01/28/24 00:42 Ns IV 01/28/24 00:50 999 mls/hr .Q1H1M STA Administration Ketorolac Tromethamine 15 mg 01/27/24 23:50 01/28/24 00:52 Ketorolac Tromethamine 15 Mg/Ml Vial IVPUSH 01/27/24 23:51 15 mg ONCE STA Administration Metoclopramide HCl 10 mg 01/27/24 23:50 01/28/24 00:41 Metoclopramide Hcl 10 Mg/2 Ml Vial IVPUSH 01/27/24 23:51 10 mg ONCE STA Administration Medical Decision Making Medical Decision Making [facility] Narrative: 38-year-old female with a history of migraine syndrome who presents emergency department for evaluation of cough and headache. Patient was had a cough with chest pain and chills for 1.5 weeks, seen in an urgent care with negative chest x-ray and started on prednisone and Zithromax with some improvement of her cough but her cough is still persistent. Patient also has a history of migraine headache and she has been having headaches on and off for the past 2-3 days with a constant headache that started around 19:00 hours similar to her previous migraines associated with nausea and vomiting. She states that her headache is 9/10 at the time my evaluation. Vital signs were unremarkable. Physical examination was unremarkable. Patient has been seen 3 times over the last month in the emergency department for left lower quadrant pain. The patient was on Suboxone. Differential diagnosis: ?Includes but is not limited to bronchitis, bacterial URI, viral URI, pneumonia, migraine headaches, anemia, electrolyte abnormalities Course: 00:07 My interpretation patient's laboratory evaluation is as follows: CBC was normal. CMP was normal. Quantitative beta-hCG was detectable at 8 but she had a similar detectable quantitative beta-hCG on 01/06/2024, I do not think that patient was based on her previous quantitative beta-hCG being detectable as well. My interpretation of the patient's chest x-ray was no acute disease. Patient's cough is most likely secondary to a viral URI and I did discuss this with the patient. Patient's headache is consistent with her migraine syndrome, her pain is 9/10 therefore she was ordered to get Reglan 10 mg IV and Toradol 10 mg IV. She also was ordered to get normal saline x1 L. 02:02 The patient states that she got no relief with the above medications she also states that the Reglan ?hit her hard ?causing agitation, nausea and vomiting. Patient's headache is now 10/10 therefore she was ordered to get Dilaudid 1 mg IV. 02:55 Patient was feeling better after the IV Dilaudid and she does want to try to go home and sleep. Patient was discharged home with printed and verbal instructions. Admission/Observation Consideration of admission/observation: Escalation of care including admission/observation considered (Yes) Lab Data MDM Lab Attestation statement: I reviewed the patient's lab results. 01/27/24 21:07 01/27/24 21:07 Labs: Lab Results 01/27/24 Range/Units 21:07 WBC 11.2 H (4.8-10.8) X10*3/uL RBC 4.28 (4.20-5.50) X10*6/uL Hgb 13.9 (12.0-16.0) g/dl Hct 40.9 (37.0-47.0) % MCV 95.6 (80.0-98.0) fL MCH 32.5 (27.0-33.0) pg MCHC 34.0 (31.0-35.0) g/dl RDW 13.4 (11.0-16.0) % Plt Count 295 (160-400) X10*3/uL MPV 9.9 (9.4-12.3) fL Immature Gran % (Auto) 0.9 H (0.0-0.4) % Neut % (Auto) 62.8 (45-73) % Lymph % (Auto) 25.1 (20-40) % [place] % (Auto) 6.9 (2-11) % Eos % (Auto) 3.5 (0-4) % Baso % (Auto) 0.8 (0-2) % Lymph # (Auto) 2.8 (1.2-4.9) X10*3/uL [place] # (Auto) 0.8 (0.1-1.2) X10*3/uL Eos # (Auto) 0.4 (0.0-0.4) X10*3/uL Baso # (Auto) 0.1 (0.0-0.2) X10*3/uL Abs Immat Gran (auto) 0.10 H (0.00-0.03) X10*3/uL Absolute Neuts (auto) 7.1 (2.0-8.3) x10*3/uL Absolute Nucleated RBC 0.000 (0.0-0.012) X10*3/uL Nucleated RBC % (auto) 0.0 (0.0-0.2) /100WBC Sodium 142 (135-145) mmol/L Potassium 4.8 (3.3-5.1) mmol/L Chloride 107 (96-108) mmol/L Carbon Dioxide 29 (22-29) mmol/L Anion Gap 11 L (12-20) BUN 16 (9-16) mg/dL Creatinine 0.78 (0.5-1.4) mg/dL Estim Creat Clear Calc 82.5 Estimated GFR > 60 Random Glucose 101 (60-115) mg/dL Calcium 9.5 (8.4-10.2) mg/dL Total Bilirubin 0.3 (0.0-1.0) mg/dL AST 16 (5-31) U/L ALT 20 (0-31) U/L Alkaline Phosphatase 79 (39-117) U/L Total Protein 7.0 (6.5-8.0) g/dL Albumin 4.1 (3.5-5.0) g/dL Beta HCG, Quant 8 mIU/mL Radiology Impression Discussion of test interpretation with radiology: I have reviewed the radiologist's reading. Radiologist Impression: XR chest 2V IMPRESSION: Unremarkable examination. Dictated By: Rupert Chacon MD Critical Care Time Critical Care Time Critical Care Time: Yes Total Critical Care Time: 35 Attestation: Critical Care: The patient was critically ill with a high probability of imminent or life threatening deterioration. I spent greater than 30 minutes of discontinuous time evaluating the patient,delivering critical care at the bedside, discussing and evaluating pertinent data with consultants. Critical care time does not include time spent performing separately billable procedures or teaching. Total time spent performing critical care was 35 minutes. Discharge Plan Discharge Clinical Impression: Migraine, URI (upper respiratory infection) Patient Disposition: Home, Self-Care Instructions: Upper Respiratory Infection (ED), Migraine Headache (ED) Additional Instructions: Your blood work was unremarkable. Your chest x-ray did not reveal any evidence for pneumonia which is reassuring. Your cough is most likely caused by a virus and sometimes a viral infection can last 2-6 weeks. You were given Reglan (metoprolol), Toradol (ketorolac) and Dilaudid (hydromorphone) for your migraine headache. Go home and try to sleep for 6-8 hours and this sometimes can break a migraine headache. Continue taking medications as prescribed by your providers. Follow-up with your doctor in 2 days. Please return to the emergency department if your symptoms get worse or if you develop any symptoms that are concerning to you. Prescriptions: No Action oxycodone 5 mg tablet 5 mg PO Q6H PRN (Reason: pain) Qty: 20 0RF Rx Instructions: Partial Fill upon patient request. oxycodone 5 mg tablet 5 mg PO BID PRN (Reason: pain) Qty: 4 0RF Rx Instructions: Partial Fill upon patient request. baclofen 15 mg tablet 15 mg PO QID 7 Days Qty: 28 0RF ibuprofen 800 mg tablet 800 mg PO TID Qty: 30 0RF cyclobenzaprine 10 mg tablet 10 mg PO TID PRN (Reason: muscle spasm) Qty: 20 0RF Print Language: Montserratian
[2024-01-27 21:33] LABS: Alanine Aminotransferase 20 U/L (0-31); Albumin Level 4.1 g/dL (3.5-5.0); Alkaline Phosphatase 79 U/L (39-117); Anion Gap 11 (12-20); Aspartate Amino Transferase 16 U/L (5-31); Bilirubin Total 0.3 mg/dL (0.0-1.0); Blood Urea Nitrogen 16 mg/dL (9-16); Calcium 9.5 mg/dL (8.4-10.2); Carbon Dioxide 29 mmol/L (22-29); Chloride 107 mmol/L (96-108); Creatinine Clr Calc Pharmacy 82.5; Estimated Glomerular Filt Rate > 60; Glucose Random 101 mg/dL (60-115); Potassium 4.8 mmol/L (3.3-5.1); Sodium 142 mmol/L (135-145)
[2024-01-27 21:41] LABS: HCG Quantitative 8 mIU/mL
[2024-01-28] MEDS: Metoclopramide HCl 10 MG/2 ML VIAL IVPUSH (00:41)
[2024-01-28] MEDS: 0.9 % Sodium Chloride 1,000 ML 999 ML IV (00:42)
[2024-01-28] MEDS: Ketorolac Tromethamine 15 MG/ML VIAL IVPUSH (00:52)
[2024-01-28 02:24] VITALS: RESP 14
[2024-01-28] MEDS: HYDROmorphone HCl 1 MG/ML SYRINGE IVPUSH (02:24)
[2024-01-28 04:06] VITALS: BP 124/74; PULSE 68; RESP 16; TEMP 36.9; O2SAT 98
== END 2024-01-28 04:08 | disposition home or self-care (01) ==
PROVIDERS: Physician Assistant Medical; Emergency Provider Emergency Medicine Emergency Medical Services
DX: J06.9 Acute upper respiratory infection, unspecified (principal); G43.909 Migraine, unspecified, not intractable, without status migrainosus; R05.9 Cough, unspecified; F17.210 Nicotine dependence, cigarettes, uncomplicated; K21.9 Gastro-esophageal reflux disease without esophagitis; Z79.899 Other long term (current) drug therapy
CPT/HCPCS: 36415; 71046; 80053; 84702; 85025; 96374; 96375; 99283; 99284; J1171; J1885; J2765

== ENCOUNTER 2024-02-01 07:18 | Emergency (ER) | payer MEDICARE, MEDICAID, SELFPAY ==
[2024-02-01 07:19] VITALS: BP 110/89; PULSE 95; RESP 20; TEMP 36.9; O2SAT 100; BMI 28.7
--- OUTSIDE RECORDS SUMMARY | 2024-02-01 07:58 | XMS_ITS | Continuity of Care Document ---
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 Role Phone Ines Woods Primary Care Physician [phone] Encounter [facility] [place] Date(s): 01/22/24 - 01/29/24 [facility] [address] [place] [address]- Attending Physician: Not on Staff, Attending MD Allergies, Adverse Reactions, Alerts Substance Reaction Severity Status doxycycline sob dizzy Active amoxicillin sob dizzy Active Benadryl hives Active Apples itchy throat, rash Active Tamiflu Rash Active Immunizations Given and Recorded Vaccine Date Status Refusal Reason pneumococcal 20-valent conjugate vaccine 04/10/23 Recorded SARS-CoV-2(COVID-19)mRNA-LNP vac(usr081) 04/10/23 Recorded SARS-CoV-2 (COVID-19) mRNA BNT-162b2 vac [...] tolerated inj. without complications....[facility]# [id number] 2Result Comment: [03/21/2018] given w/out incident [facility]: [id number] 3Result Comment: [02/22/2016] pt. tolerated inj. without [...] 0 Refills, Maintenance, 07/06/23 9:37:00 EDT, Solution, [facility]/pharmacy #[id number], Partial fill upon patient request if the prescription is for a schedule... Start Date: 07/06/23 Status: Ordered Azithromycin 5 Day Dose Pack 250 mg oral tablet 1 pack/packet, By Mouth, Once, # 6 tablet, 0 Refills, Soft Stop, 01/22/24 15:51:00 EDT, Tablet, [facility]/pharmacy #[id number], Partial fill upon patient request if the prescription is for a schedule II opioid drug., 152, cm, 01/22/24 14:58:00 EDT, Height, 68, kg... Start Date: 01/22/24 Status: Ordered Diflucan 150 mg oral tablet 1 tablet = 150 mg, By Mouth, Once, # 1 tablet, 1 Refills, Soft Stop, 11/22/23 11:42:00 EDT, Tablet,[facility]/pharmacy #[id number], Partial fill upon patient request if the prescription is for a schedule II opioid drug., 152, cm, 11/07/23 9:40:00 EDT, Height, 61.... Start Date: 11/22/23 Status: Ordered hyoscyamine 0.125 mg oral tablet See Instructions, TAKE 1 TABLET BY MOUTH EVERY 4 HOURS NEEDED FOR ABDOMINAL CRAMPING, # 90 tablet, Refills 0, Maintenance, 01/23/24 17:01:00 EDT, Instructions Replace Required Details, Route to Pharmacy Electronically, [id number], 152, cm, .. Start Date: 01/23/24 Status: Ordered Nebulizer/Compressor See Instructions, # 1 each, Maintenance, Use as directed, 06/15/23 12:17:00 EST, Supply Start Date: 06/15/23 Status: Ordered Ventolin HFA 108 mcg/inh inhalation aerosol with adapter 2 puffs, Inhalation, Every 4 hours, PRN wheezing, coughing or shortness of breath, # 1 each, 2 Refills, Maintenance, 06/09/23 12:23:00 EST, Aerosol, [facility]/pharmacy #[id number], Partial fill upon patient request if [...] recent to oldest [Reference Range]: 1 Height 152 cm (01/22/24 2:58 PM) Oxygen Saturation [94-100 %] 100 % (01/22/24 2:58 PM) Pulse Rate [55-90 bpm] 93 bpm *H* (01/22/24 2:58 PM) Blood Pressure [90-138/55-84 mm Hg] 123/ 78mm Hg (01/22/24 2:58 PM) Temperature [96.8-100.4 DegF] 97.7 DegF (01/22/24 2:58 PM) Mode of Delivery (Oxygen) Room air (01/22/24 2:58 PM) Blood pressure sites Arm, right (01/22/24 2:58 PM) Temperature Route Temporal (01/22/24 2:58 PM) Social History Social History Type Response Smoking Status 5-9 cigarettes (betw een 1/4 to 1/2 pack)/day in last 30 days; Other: 1/2 PPD since 9 about 24-25 years; entered on: 06/15/20 Sex Note * Steve Coleman: PERFORM Event Display: Patient Education Leaflets Authored Date: [id number] How to Quit Smoking ?? [id number] How to Quit Smoking Smoking is a hard habit to break. About half of all??people who've ever smoked have been able to quit. Most people??who still smoke want to quit. Here are some of the best ways to stop smoking. Keep in mind how quitting can help your health The health benefits of quitting start right away. They keep improving the longer you go without smoking. Knowing this can help inspire you to stay on track. These benefits occur at any age. Quitting is a good choice whether you are 17 or 70. Some of the health benefits after your last cigarette include: ??? After 20 minutes: Your blood pressure and pulse return to normal. ??? After 8 hours: Your oxygen levels return to normal. ??? After 2 days: Your ability to smell and taste start to get better as damaged nerves regrow. ??? After 2 to 3 weeks: Your circulation and lung function get better. ??? After 1 to 9 months: You have less coughing, congestion, and shortness of breath. You feel less tired. ??? After 1 year: Your risk of heart attack goes down by 50%. ??? After 5 years: Your risk of lung cancer goes down by 50%. Your risk of stroke becomes the same as a nonsmoker???s. ?? What about going cold turkey? You may have heard about quitting cold turkey. This means stopping all at once. Going cold turkeyis an option. But it's not the most successful way to quit smoking. Trying to cut back slowly oftendoesn't work as well either. This may be because it continues the habit of smoking. You may also inhale more smoke while smoking fewer cigarettes. This leads to the same amount of nicotine in your body. But quitting cold turkey or cutting back slowly aren't your only choices. Using tobacco cessation medicines with behavioral counseling may be a better choice to help you succeed. Talk with your provider about your choices for support while you quit smoking. ?? Get support Support programs can be a big help, especially for heavy smokers. These groups offer information, ways to change behavior, and peer support. Ask your provider for some resources. Here are some other ways to find support: ??? Smokefree.gov at www.smokefree.gov or 058-PQGC-RPH (970-134-3696) ??? [place] Lung Associationat www.lung.org/quit-smoking or 146-918-5810 ??? [place] [employer] at www.cancer.org/quitsmoking or 387-337-3144 Support at home is important too. Family and friends can offer praise and reassurance. Ask your friends who smoke to support your decision. Try to stay away from situations that trigger the desire tosmoke. This may include smoking with your morning coffee. Or smoking after a meal. Create new routines to help decrease your cravings. If the smoker in your life finds it hard to quit, encourage them to keep trying. Remind them of allof the benefits to themselves and people they love. ?? Try yqou-jxs-ejnpxwz nicotine replacements Nicotine replacement therapy??may make it??easier to quit. You can buy some aids without a prescription. These include a nicotine patch, gum, and lozenges. But it's best to use these under the care of your healthcare provider. The skin patch gives a steady supply of nicotine. Nicotine gum and lozenges give??short- time doses of low levels of nicotine. Both methods reduce the craving for cigarettes. If you??have upset stomach (nausea), vomiting, dizziness, weakness, or a fast heartbeat, stop using these products and see your provider. ?? Ask about prescription medicine After reviewing??your smoking patterns and past attempts to quit, your provider may offer a prescription medicine. These include bupropion, varenicline, a nicotine inhaler, or nasal spray. Each has advantages and side effects. Your provider can go over these with you. ?? Keep trying Most smokers try to quit many times before they succeed. It???s important not to give up. ?? Last Reviewed Date: 2022 ?? 8867-7711 [employer]. All rights reserved. This information is not intended as a substitute for professional medical care. Always follow your healthcare professional's instructions. ?? * Steve Coleman: PERFORM Event Display: Patient Education Leaflets Authored Date: [id number] Acute Bronchitis ?? 43398 Acute Bronchitis Your healthcare provider has told you that you have acute bronchitis. Bronchitis is an infection orinflammation of the airways in the lungs (bronchial tubes). Normally, air moves easily in and out of the airways. Bronchitis narrows the airways. This makes it harder for air to flow in and out of the lungs. This causes symptoms, such as shortness of breath, coughing up yellow or green mucus, and wheezing. Bronchitis can be acute or chronic. Acute means it happens quickly and goes away in a short time. Chronic means a condition lasts a long time and often comes back. Most people with acute bronchitis get better in 1 to 2 weeks.?? What causes acute bronchitis? Acute bronchitis is usually caused by a virus, such as a cold or the flu. In rare cases, it may be caused by bacteria. Certain factors make it more likely for a cold or flu to turn into bronchitis. These include being very young, being elderly, having a heart or lung problem, or having a weak immune system. Smoking also makes bronchitis more likely. When bronchitis develops, the airways become swollen. The airways may also become infected with bacteria. This is known as a secondary infection. ?? Symptoms of acute bronchitis Symptoms can include: ??? Coughing with mucus ??? Wheezing ??? Feeling short of breath ??? Chest pain ??? Fever ??? Feeling tired (fatigue) ?? Diagnosing acute bronchitis Your healthcare provider will ask about your symptoms and health history. They will give you a physical exam. This will include listening to your lungs while you breathe. You may have a chest X-ray to look for a lung infection (pneumonia) if you have had a fever. You may also have a blood test or nose or throat swab to check for infection. ?? Treating acute bronchitis Bronchitis usually goes away in 1 to 2 weeks without treatment. You can help feel better by: ??? Taking medicine as directed. Talk to your healthcare provider before taking any xjzz-zpt-qtjeysb medicines (OTC). Some OTC medicines help relieve inflammation in your bronchial tubes. They can also thinmucus. This makes it easier to cough up. Your healthcare provider may prescribe an inhaler to help open up the bronchial tubes. Take any antibiotic prescribed exactly as directed. Most of the time,??acute bronchitis??is caused by a viral infection. Antibiotics are usually not prescribed for viral infections. ??? Ask your provider about how much fluid you should drink. Drinking plenty of fluids, such as water, juice, or warm soup can thin mucus so that you can cough it up and breathe more easily. Fluids can also prevent dehydration. However, if you have certain medical conditions, such as severe kidney disease or heart problems, you may need to limit how much you drink. ??? Using a humidifier. This can help reduce coughing. ??? Getting plenty of rest ??? Not smoking. Also, don't let anyoneelse smoke in your home. In public places, move away from secondhand smoke. ?? Recovery and follow-up Follow up with your healthcare provider. You will likely feel better in 1 to 2 weeks. But you may have a dry cough for a longer time. Let your provider know if you still have symptoms other than a dry cough after 2 weeks. Tell them if you get bronchial infections often. ?? Self-care tips To get relief from your symptoms and prevent bronchitis: ??? Stop smoking. Stopping smoking is the most important step you can take to treat bronchitis. If you need help stopping smoking, talk with your healthcare provider. ??? Stay away from secondhand smoke and other irritants. Try to stay away from smoke, chemicals, fumes, and dust. Don???t let anyone smoke in your home. Stay indoors on smoggydays. ??? Prevent lung infections. Ask your healthcare provider about vaccines, such as for the fluand pneumonia. Take steps to prevent colds and other lung infections. Stay away from crowds during cold and flu season. Stay away from others who are sick. ??? Wash your hands well. Wash your hands often with soap and water for at least 20 seconds. Use an alcohol-based hand manager hi with at least 60% alcohol when you can???t wash your hands. ?? When to call your healthcare provider Call the healthcare provider if you have any of these: ??? Fever of 100.4??F ( 38.0??C) or higher, or as directed by your healthcare provider ??? Symptoms that get worse, or new symptoms ??? Symptomsthat don???t start to get better in 1 week ?? Call 911 Call 911 if you have: ??? Trouble breathing that doesn't get better with treatment ??? Skin, lips, or nails that look blue, marino, or pale ?? Last Reviewed Date: 2023 ?? 4899-7119 [employer]. All rights reserved. This information is not intended as a substitute for professional medical care. Always follow your healthcare professional's instructions. ?? Patient Care team information Care Team Personnel Name: Ines Woods Position: S Associate Professional Member Role: PCP Address: Address: [address] [place] [address] [place] [address]- Care Team Related Persons Name: TANYA BONILLA Address: home [address] [place], [place] Name: MARTIN GANNON Address: home [address] [place], [place] Name: MARTIN GONZALEZ Address: home [address], [place] Name: JDUE GONZALEZ Address: home [address] [facility] Name: DERICK GONZALEZ Address: home [address] [place] [address] Name: BLAZE HOWARD Address: home [address] [place], [place] Name: BLAZE HOWARD Address: home [address] [place] [address] Name: EDELMIRA WORTHINGTON Address: home [address] Name: EDELMIRA VILLALOBOS Address: home [address] [place], [place] Name: TAYLOR MOCTEZUMA Address: home [address], [place] Name: LINN SWANSON
--- NOTE | 2024-02-01 08:27 | ED_ITS ---
HPI - Headache General Chief Complaint: General Medical Stated Complaint: Migraine Time Seen by Provider: 02/01/24 08:04 Source: patient and old records reviewed Mode of arrival: ambulatory Limitations: no limitations History of Present Illness ED Provider: MADDISON GROSS Narrative: 38 yo female with PMH of partial hysterectomy 10 years ago - complicated by bladder injury now with recurrence of pelvic pain, vaginal bleeding without dx since summer s/p US, OBGYN evals, CT scans, and MRI along with pelvic pain. She also has hx of asthma and migraines. She has prior hx of opiate use disorder but off suboxone since the Summer. She was recently treated by an urgent care last week with azithromycin/5 day steroid burst for walking pneumonia though CXR and her viral swabs were negative. She has had on and off fevers last one was Monday up to . She denies travel or sick contacts. She now c/o L sided migraine at rest x 2 days with L sided facial pain, nausea and photophobia. She overall feels unwell and sick. We did discuss her chronic pain issues recently and if she would be interested in going back on suboxone but she doesn't seem interested. MD elicited complaint: headache and migraine Pertinent past history: migraines Onset (ago): day(s) (2) Onset description: gradually Location: left Severity: severe Quality & Timing: throbbing Exacerbating factors: movement of head/neck, sitting/standing and light Relieving factors: nothing Context: occurred at rest Associated symptoms: nausea, vomiting and photophobia Treatments prior to arrival: acetaminophen Related Data Previous Rx's ?Medication ?Instructions ?Recorded cyclobenzaprine 10 mg tablet 10 mg PO TID PRN muscle spasm #20 09/07/22 tabs ibuprofen 800 mg tablet 800 mg PO TID #30 tabs 09/07/22 oxycodone 5 mg tablet 5 mg PO Q6H PRN pain #20 tabs 01/07/24 oxycodone 5 mg tablet 5 mg PO BID PRN pain #4 tabs 01/11/24 baclofen 15 mg tablet 15 mg PO QID 7 days #28 tabs 01/18/24 Allergies Allergy/AdvReac Type Severity Reaction Status Date / Time amoxicillin [AMOXICILLIN] Allergy Unknown RASH Verified 02/01/24 07:22 diphenhydramine Allergy Unknown HIVES Verified 02/01/24 07:22 [From BENADRYL] doxycycline [DOXYCYCLINE] Allergy Unknown SHORTNESS Verified 02/01/24 07:22 OF BREATH oseltamivir [From Tamiflu] Allergy Rash Verified 02/01/24 07:22 Review of Systems 2 Review of Systems: Constitutional : No Fever, pos Chills, pos Fatigue ENT/Mouth : No sore throat, No Rhinorrhea, pos sinus pain Eyes: No Eye Pain, No Swelling, No Redness Cardiovascular : No Chest Pain, No SOB, No Dyspnea on Exertion Respiratory : pos Cough, No Sputum Gastrointestinal : pos Nausea, pos Vomiting, No Diarrhea, No abdominal Pain Genitourinary : No Dysuria, No Urinary Frequency, No Hematuria, Musculoskeletal : No joint pain, No Myalgias, No Joint Swelling Skin : No Skin Lesions, No rash Neuro : No Weakness, No Numbness, No Dizziness, positive Headache Psych : No Anxiety/Panic, No Depression All other systems reviewed and are negative [facility] Past Medical History Attestation statement: The following information was validated with the patient. Source: old records reviewed Medical History GERD (gastroesophageal reflux disease) Surgical History H/O tubal ligation S/P partial hysterectomy Social History Social History Unable to assess alcohol history related to: Unable to respond Alcohol intake: never Smoked in Last 30 Days: Yes Use of substances other than those prescribed or required for medical reasons: No Advance Directives: No Advance Directives Information Provided: Yes Patient : No Physical Exam 2 Vital Signs: Vital Signs: Last Vital Signs Temp 98.2 F 02/01/24 10:02 Pulse 81 02/01/24 10:02 Resp 18 02/01/24 10:02 BP 137/90 H 02/01/24 10:02 Pulse Ox 100 02/01/24 10:02 O2 Del Method Room Air 02/01/24 10:02 BMI result Body Mass Index 28.7 Appearance: Alert. Oriented X3. No acute distress. Eyes: Pupils equal, round and reactive to light. ENT: Pharynx normal. TMs normal bilaterally, no ulcers or sores noted Neck: Normal inspection. Neck supple. no meningeal signs on exam CVS: Normal heart rate and rhythm. Pulses normal. Respiratory: No respiratory distress. Breath sounds normal. Abdomen: Soft and mild suprapubic ttp Skin: Skin warm and dry. Normal skin color. Normal skin turgor. Extremities: No lower extremity edema. No calf ttp Neuro: Oriented X 3. No motor deficit. No sensory deficit. Course Course Course Narrative: neg ESR and CRP point against any infectious etiology Medications Administered Discontinued Medications Generic Name Dose Route Start Last Admin Trade Name Zakiq PRN Reason Stop Dose Admin Droperidol 1.25 mg 02/01/24 08:59 02/01/24 10:02 Droperidol 5 Mg/2 Ml Vial IVPUSH 02/01/24 09:00 1.25 mg ONCE ONE Administration Sodium Chloride 1,000 mls @ 999 mls/hr 02/01/24 08:59 02/01/24 10:00 Ns IV 02/01/24 09:59 999 mls/hr .Q1H1M ONE Administration Ketorolac Tromethamine 15 mg 02/01/24 08:59 02/01/24 10:01 Ketorolac Tromethamine 15 Mg/Ml Vial IVPUSH 02/01/24 09:00 15 mg ONCE ONE Administration Lorazepam 1 mg 02/01/24 08:59 02/01/24 10:02 Lorazepam 2 Mg/Ml Vial IVPUSH 02/01/24 09:00 1 mg STAT STA Administration Medical Decision Making Medical Decision Making [facility] Narrative: 38 yo female with PMH of partial hysterectomy 10 years ago - complicated by bladder injury, asthma, migraines not on thinners here with recent viral syndrome now with migraine - at this time afebrile here no meningeal signs will obtain basic labs, IVF, infl markers, UA for infection, start on migraine cocktail, could be viral syndrome, migraine, tension headache, sinusitis. Differential Diagnosis Differential Diagnoses: The differential diagnosis associated with the presentation includes chronic pelvic pain migraine, viral syndrome, afebrile here no WBC count doubt meningitis at this time no labial herpes Admission/Observation Consideration of admission/observation: Escalation of care including admission/observation considered labs negative ESR and CRP negative doubt infection Lab Data [facility] Lab Attestation statement: I reviewed the patient's lab results. 02/01/24 08:41 02/01/24 08:41 Labs: Lab Results 02/01/24 02/01/24 Range/Units 08:41 08:53 WBC 8.7 (4.8-10.8) X10*3/uL RBC 4.76 (4.20-5.50) X10*6/uL Hgb 15.3 (12.0-16.0) g/dl Hct 45.7 (37.0-47.0) % MCV 96.0 (80.0-98.0) fL MCH 32.1 (27.0-33.0) pg MCHC 33.5 (31.0-35.0) g/dl RDW 13.4 (11.0-16.0) % Plt Count 300 (160-400) X10*3/uL MPV 10.0 (9.4-12.3) fL Immature Gran % (Auto) 0.6 H (0.0-0.4) % Neut % (Auto) 63.9 (45-73) % Lymph % (Auto) 23.2 (20-40) % [place] % (Auto) 8.4 (2-11) % Eos % (Auto) 3.1 (0-4) % Baso % (Auto) 0.8 (0-2) % Lymph # (Auto) 2.0 (1.2-4.9) X10*3/uL [place] # (Auto) 0.7 (0.1-1.2) X10*3/uL Eos # (Auto) 0.3 (0.0-0.4) X10*3/uL Baso # (Auto) 0.1 (0.0-0.2) X10*3/uL Abs Immat Gran (auto) 0.05 H (0.00-0.03) X10*3/uL Absolute Neuts (auto) 5.5 (2.0-8.3) x10*3/uL Absolute Nucleated RBC 0.000 (0.0-0.012) X10*3/uL Nucleated RBC % (auto) 0.0 (0.0-0.2) /100WBC ESR 7 (0-20) MM/HR Hold Purple Top SEE NOTE Sodium 140 (135-145) mmol/L Potassium 4.4 (3.3-5.1) mmol/L Chloride 107 (96-108) mmol/L Carbon Dioxide 25 (22-29) mmol/L Anion Gap 12 (12-20) BUN 8 L (9-16) mg/dL Creatinine 0.70 (0.5-1.4) mg/dL Estim Creat Clear Calc 91.0 Estimated GFR > 60 Random Glucose 89 (60-115) mg/dL Calcium 9.6 (8.4-10.2) mg/dL Total Bilirubin 0.5 (0.0-1.0) mg/dL AST 16 (5-31) U/L ALT 24 (0-31) U/L Alkaline Phosphatase 84 (39-117) U/L C-Reactive Protein 0.10 (< or = 0.50) mg/dL Total Protein 7.5 (6.5-8.0) g/dL Albumin 4.5 (3.5-5.0) g/dL Beta HCG, Quant 9 mIU/mL Urine Color Yellow Urine Appearance Clear Urine pH 6.5 (5.0-9.0) Ur Specific [place] 1.020 (1.005-1.025) Urine Protein Negative (Neg-Trace) mg/dL Urine Glucose (UA) Negative (Negative) mg/dL Urine Ketones Negative (Negative) mg/dL Urine Blood Negative (Negative) Urine Nitrite Negative (Negative) Ur Leukocyte Esterase Trace H (Negative) Urine RBC 0-2 (0-2) /HPF Urine WBC 0-5 (0-5) /HPF Ur Squamous Epith Cells 3-5 (0-2) /HPF Urine Bacteria None Seen (None Seen) Hyaline Casts 0-2 (0-2) /LPF Urine Opiates Screen Not Detected (Not Detect) Ur Buprenorphine Scrn Not Detected (Not Detect) ng/mL Ur Oxycodone Screen Not Detected (Not Detect) ng/mL Urine Methadone Screen Not Detected (Not Detect) ng/mL Urine Fentanyl Screen Not Detected (Not Detect) Ur Barbiturates Screen Not Detected (Not Detect) Ur Phencyclidine Scrn Not Detected (Not Detect) Ur Amphetamines Screen Not Detected (Not Detect) U Benzodiazepines Scrn Not Detected (Not Detect) Urine Cocaine Screen Not Detected (Not Detect) U Marijuana (THC) Screen Not Detected (Not Detect) Influenza Type A (PCR) NEGATIVE (Negative) Influenza Type B (PCR) NEGATIVE (Negative) RSV RNA Qual (PCR) NEGATIVE (Negative) SARS-CoV-2 RNA (RT-PCR) NEGATIVE (Negative) External Record Review External record reviewed: Inpatient record and Outpatient record Discharge Plan Discharge Clinical Impression: Migraine, Chronic female pelvic pain Patient Disposition: Home, Self-Care Instructions: Migraine Headache (ED), Pelvic Pain in Women (ED) Additional Instructions: please follow up with your OBGYN as planned labs reassuring return for any worsening symptoms or concerns. Prescriptions: No Action oxycodone 5 mg tablet 5 mg PO Q6H PRN (Reason: pain) Qty: 20 0RF Rx Instructions: Partial Fill upon patient request. oxycodone 5 mg tablet 5 mg PO BID PRN (Reason: pain) Qty: 4 0RF Rx Instructions: Partial Fill upon patient request. baclofen 15 mg tablet 15 mg PO QID 7 Days Qty: 28 0RF ibuprofen 800 mg tablet 800 mg PO TID Qty: 30 0RF cyclobenzaprine 10 mg tablet 10 mg PO TID PRN (Reason: muscle spasm) Qty: 20 0RF Print Language: Hebrew
[2024-02-01 08:47] LABS: MANUAL DIFF FLAG NO
[2024-02-01 08:56] LABS: Basophils Absolute Auto 0.1 X10*3/uL (0.0-0.2); Basophils Percent Auto 0.8 % (0-2); Eosinophils Absolute Auto 0.3 X10*3/uL (0.0-0.4); Eosinophils Percent Auto 3.1 % (0-4); Hematocrit 45.7 % (37.0-47.0); Hemoglobin 15.3 g/dl (12.0-16.0); Imm Gran Abs Auto 0.05 X10*3/uL (0.00-0.03); Imm Gran Pct Auto 0.6 % (0.0-0.4); Lymphocytes Percent Auto 23.2 % (20-40); Mean Corpuscular HGB Conc 33.5 g/dl (31.0-35.0); Mean Corpuscular Hemoglobin 32.1 pg (27.0-33.0); Monocytes Absolute Auto 0.7 X10*3/uL (0.1-1.2); Monocytes Percent Auto 8.4 % (2-11); Neutrophils Absolute Auto 5.5 x10*3/uL (2.0-8.3); Neutrophils Percent Auto 63.9 % (45-73); Platelet Count 300 X10*3/uL (160-400); Red Blood Count 4.76 X10*6/uL (4.20-5.50); Red Cell Distribution Width 13.4 % (11.0-16.0); White Blood Count 8.7 X10*3/uL (4.8-10.8)
[2024-02-01 09:06] LABS: Appearance Urine Clear; Color Urine Yellow; Glucose Urine UA Negative (Negative); Leukocyte Esterase Urine Trace (Negative); Nitrite Urine Negative (Negative); PH 6.5 (5.0-9.0); UMIC TRIGGER UACC YES; Urine Blood Negative (Negative); Urine Ketones Negative (Negative); Urine Protein Negative (Neg-Trace)
[2024-02-01 09:11] LABS: Bacteria Urine None Seen (None Seen); Hyaline Casts Urine 0-2 /LPF (0-2); RBC Urine 0-2 /HPF (0-2); WBC Urine 0-5 /HPF (0-5)
[2024-02-01 09:14] LABS: Amphetamine Screen Urine Not Detected (Not Detect); Barbiturates, Urine Not Detected (Not Detect); Benzodiazepines Screen Urine Not Detected (Not Detect); Buprenorphine Scr Not Detected (Not Detect); Cannabinoid Screen Urine Not Detected (Not Detect); Cocaine Screen Urine Not Detected (Not Detect); Fentanyl, urine Not Detected (Not Detect); Methadone Screen, Urine Not Detected (Not Detect); Opiate Screen Urine Not Detected (Not Detect); Oxycodone Screen Urine Not Detected (Not Detect); Phencyclidine Screen Urine Not Detected (Not Detect)
[2024-02-01 09:25] LABS: Alanine Aminotransferase 24 U/L (0-31); Albumin Level 4.5 g/dL (3.5-5.0); Alkaline Phosphatase 84 U/L (39-117); Anion Gap 12 (12-20); Aspartate Amino Transferase 16 U/L (5-31); Bilirubin Total 0.5 mg/dL (0.0-1.0); Blood Urea Nitrogen 8 mg/dL (9-16); Calcium 9.6 mg/dL (8.4-10.2); Carbon Dioxide 25 mmol/L (22-29); Chloride 107 mmol/L (96-108); Estimated Glomerular Filt Rate > 60; Glucose Random 89 mg/dL (60-115); HCG Quantitative 9 mIU/mL; Potassium 4.4 mmol/L (3.3-5.1); Sodium 140 mmol/L (135-145); Total Protein 7.5 g/dL (6.5-8.0)
[2024-02-01 09:40] LABS: Influenza A PCR NEGATIVE (Negative); Influenza B PCR NEGATIVE (Negative); Resp Syncy Virus RNA Qual PCR NEGATIVE (Negative); SARS COV2 PCR INHOUSE NEGATIVE (Negative)
[2024-02-01] MEDS: 0.9 % Sodium Chloride 1,000 ML 999 ML IV (10:00)
[2024-02-01] MEDS: Ketorolac Tromethamine 15 MG/ML VIAL IVPUSH (10:01)
[2024-02-01 10:02] VITALS: BP 137/90; PULSE 81; RESP 18; TEMP 36.8; O2SAT 100
[2024-02-01] MEDS: LORazepam 2 MG/ML VIAL 1 MG IVPUSH (10:02)
[2024-02-01] MEDS: droPERidol 5 MG/2 ML VIAL 1.25 MG IVPUSH (10:02)
[2024-02-01 10:05] LABS: Erythrocyte Sedimentation Rate 7 MM/HR (0-20)
--- NOTE | 2024-02-01 11:00 | PC.NURSE ---
IVF still infusing at this time, approx 160mls remaining
[2024-02-01 13:44] VITALS: BP 110/76; PULSE 95; RESP 14; O2SAT 98
[2024-02-01 14:25] VITALS: BP 110/76; PULSE 95; RESP 14; TEMP 36.9; O2SAT 98
== END 2024-02-01 14:25 | disposition home or self-care (01) ==
PROVIDERS: Emergency Provider Emergency Medicine
DX: G43.909 Migraine, unspecified, not intractable, without status migrainosus (principal); H53.143 Visual discomfort, bilateral; M54.2 Cervicalgia; R10.2 Pelvic and perineal pain; R11.2 Nausea with vomiting, unspecified; Z51.81 Encounter for therapeutic drug level monitoring; Z03.818 Encounter for observation for suspected exposure to other biological agents ruled out; Z79.899 Other long term (current) drug therapy
CPT/HCPCS: 0241U; 36415; 80053; 80307; 81001; 81003; 84702; 85025; 85652; 86140; 96361; 96374; 96375; 99285; J1790; J1885; J2060